=== PATIENT | male | born 1975 | race Caucasian/White ===

== ENCOUNTER 2016-10-09 15:21 | Inpatient (IN) | payer OTHER ==
[2016-10-09 18:05] VITALS: BMI 20.5
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
[2016-10-09] MEDS ORDERED: MAGNESIUM HYDROX 2400MG/30ML ORAL SUSPENSION 30 ML CUP PO PRN (20:10)
[2016-10-09] MEDS ORDERED: MAG HYDROX/AL HYDROX/SIMETH 30 ML UNIT-DOSE CUP PO PRN (20:10)
[2016-10-09] MEDS ORDERED: guaiFENesin/D-METHORPHAN HB 10 ML UNIT-DOSE CUPS PO PRN (20:10)
[2016-10-09] MEDS ORDERED: ACETAMINOPHEN 325 MG TABLET (FP) PO PRN (20:10)
[2016-10-09] MEDS ORDERED: P-EPHED 60MG/TRIPROLIDI 2.5MG TABLET PO PRN (20:10)
[2016-10-09] MEDS ORDERED: NICOTINE POLACRILEX 4 MG GUM BC PRN (20:10)
[2016-10-09] MEDS ORDERED: MENTHOL/PHENOL 1 EACH UD MM PRN (20:10)
[2016-10-09] MEDS ORDERED: LOPERAMIDE HCL 2 MG CAPSULE PO PRN (20:10)
[2016-10-09] MEDS ORDERED: MAGNESIUM CITRATE 300 ML BOTTLE PO PRN (20:10)
[2016-10-09] MEDS ORDERED: chlordiazePOXIDE HCL 25 MG CAPSULE PO ONE (20:10)
[2016-10-09] MEDS: THIAMINE HCL 100 MG TABLET (FP) PO SCH (22:15)
[2016-10-09] MEDS: RANITIDINE HCL 150 MG TABLET (FP) PO SCH (22:15)
[2016-10-09] MEDS: chlordiazePOXIDE HCL 25 MG CAPSULE PO SCH (22:15)
[2016-10-09 23:17] LABS: URINE APPEARANCE CLEAR; URINE BILIRUBIN NEGATIVE (NEGATIVE); URINE BLOOD NEGATIVE (NEGATIVE); URINE COLOR YELLOW; URINE GLUCOSE (UA) NEGATIVE (NEGATIVE); URINE KETONE NEGATIVE (NEGATIVE); URINE LEUK ESTERASE NEGATIVE (NEGATIVE); URINE NITRITE NEGATIVE (NEGATIVE); URINE PROTEIN NEGATIVE (NEGATIVE); URINE UROBILINOGEN NEGATIVE E.U./dl (0.2-1.0)
[2016-10-10] MEDS: chlordiazePOXIDE HCL 25 MG CAPSULE PO SCH ×4 (05:22→22:36)
--- NOTE | 2016-10-10 08:44 | CONSULT ---
[facility] Psychiatric Consult - Data Date of interview: 10/10/16 Admission source: [facility] Identifying data: This is 41 years old male with hiostory of Bipolar disorder, PTSD, ADHD, history of psychiatric hospitalizations, intoxicated with: Alcohol , Heroin, Opioids, Cocaine, Nicotine Substance Abuse History: - Smoking Cessation. Smoking history: Current every day smoker. Have you smoked in the past 12 months: Yes. Aproximately how many cigarettes per day: 20. Cigars Per Day: 0. Hx Chewing Tobacco Use: No. Initiated information on smoking cessation: Yes. 'Breaking Loose' booklet given : 10/09/16. - Substance & Tx. History. Hx Alcohol Use: Yes. Substance Use Type: None, Alcohol, Opiates. Hx Substance Use Treatment: Yes. - Substances Abused. Alcohol. Route: Oral. Frequency: Daily. Amount used: Vodka 3 pints. Age of first use: 17. Date of Last Use: 10/09/16. Heroin. Route: Injection. Frequency: 3-6 times per week. Amount used: 2 bags. Age of first use: 23. Date of Last Use: Medical History: HTN, MMTP, Hep C+, Syncope history, Seizure history Psychiatric History: Patient reports to carry ADHD, PTSD, Bipolar Disorder with most recent psychiatric admission on 2014 at [facility], reports taking prior to admission no medications Physical/Sexual Abuse/Trauma History: Denies Additional Comment: Observation. Detox Unit Care Protocol Mental Status Exam - Mental Status Exam Alert and Oriented to: Person Cognitive Function: Fair Patient Appearance: Unkempt Patient Behavior: Sedated Speech Pattern: Delayed Voice Loudness: Mildly Soft/Quiet Thought Process: Circumstantial Thought Disorder: Being Controlled Hallucinations: Denies Suicidal Ideation: Denies Homicidal Ideation: Denies Insight/Judgement: Fair Sleep: Difficulty falling asleep Appetite: Fair Muscle strength/Tone: Mild Hypotonicity Gait/Station: Shuffling Additional Comments: Observation. Detox Unit Care Protocol Psychiatric Findings - Problem List ([place] 1, 2,3) (1) Alcohol dependence with uncomplicated withdrawal Current Visit: Yes Status: Acute (2) Methadone maintenance therapy patient Current Visit: Yes Status: Acute Comment: 80 mg verification pending (3) Nicotine dependence Current Visit: Yes Status: Acute Qualifiers: Nicotine product type: cigarettes Substance use status: in withdrawal Qualified Code(s): F17.213 - Nicotine dependence, cigarettes, with withdrawal (4) Bipolar II disorder Current Visit: Yes Status: Suspected (5) ADHD (attention deficit hyperactivity disorder) Current Visit: No Status: Acute (6) Cocaine dependence Current Visit: No Status: Acute (7) Opioid dependence Current Visit: No Status: Acute (8) Sedative/hypnotic withdrawal without complication Current Visit: No Status: Acute (9) Alcohol dependence Current Visit: No Status: Chronic (10) Anxiety disorder Current Visit: No Status: Chronic (11) Benzodiazepine dependence Current Visit: No Status: Chronic (12) Bipolar disorder Current Visit: No Status: Chronic (13) Cannabis dependence Current Visit: No Status: Chronic (14) Drug-induced mood disorder Current Visit: No Status: Chronic (15) Nicotine dependence, uncomplicated Current Visit: No Status: Chronic Qualifiers: Nicotine product type: cigarettes Qualified Code(s): F17.210 - Nicotine dependence, cigarettes, uncomplicated (16) Opioid dependence on agonist therapy Current Visit: No Status: Chronic (17) PTSD (post-traumatic stress disorder) Current Visit: No Status: Chronic (18) Panic disorder with agoraphobia Current Visit: No Status: Chronic (19) Sedative dependence Current Visit: No Status: Chronic - Initial Treatment Plan Initial Treatment Plan: Observation. Detox Unit Care Protocol
[2016-10-10] MEDS ORDERED: METHADONE HCL 40 MG DISPERSABLE TABLET PO ONE (08:49)
--- NOTE | 2016-10-10 09:35 | PN ---
S CIWA - CIWA Score Nausea/Vomitin Muscle Tremors: 3 Anxiety: 3 Agitation: 3 Paroxysmal Sweats: 3 Orientation: 0-Oriented Tacttile Disturbances: 1-Very Mild Itch/Numbness Auditory Disturbances: 0-None Visual Disturbances: 0-None Headache: 0-None Present CIWA-Ar Total Score: 16 BHS Progress Note (SOAP) Subjective: interrupted sleep, sweats, shakes,nausea, vomiting x1 Objective: 10/10/16 09:35 Vital Signs Temperature 98.1 F 10/10/16 07:00 Pulse Rate 66 10/10/16 07:00 Respiratory Rate 16 10/10/16 07:00 Blood Pressure 126/64 10/10/16 07:00 O2 Sat by Pulse Oximetry (%) Assessment: 10/10/16 09:35 withdrawal sx;s Plan: cont. detox increase fluids
[2016-10-10 10:02] LABS: MCH 29.2 pg (25.7-33.7); MCHC 32.9 g/dl (32.0-35.9); MEAN CELL VOLUME 88.8 fl (80-96); MEAN PLT VOLUME 9.8 fl (7.5-11.1); PLATELET COUNT 97 K/MM3 (134-434); RDW 14.5 % (11.9-15.9); WHITE BLOOD COUNT 3.1 K/mm3 (4.0-10.0)
[2016-10-10 10:16] LABS: ALBUMIN 3.2 g/dl (3.4-5.0); ANION GAP 8 (8-16); BILIRUBIN,TOTAL 0.4 mg/dL (0.2-1.0); CALCIUM 8.6 mg/dL (8.5-10.1); CO2 32 mmol/L (21-32); CREATININE 0.8 mg/dL (0.7-1.3); GLUCOSE,RANDOM 92 mg/dL (74-106); SGOT/AST 77 U/L (15-37); SGPT/ALT 75 U/L (12-78); TOT PROT 6.2 g/dl (6.4-8.2)
[2016-10-10 10:17] LABS: ALK PHOS 72 U/L (45-117)
[2016-10-10] MEDS: NICOTINE 21 MG/24 HOURS TOPICAL PATCH TD SCH (10:39)
[2016-10-10] MEDS: RANITIDINE HCL 150 MG TABLET (FP) PO SCH ×2 (10:40→22:36)
[2016-10-10] MEDS: PRENATAL VITAMINS W/ FOLIC ACID TABLET (FP) PO SCH (10:40)
[2016-10-10] MEDS ORDERED: ONDANSETRON *ODT* 4 MG TABLET SL PRN (11:20)
[2016-10-10] MEDS: chlordiazePOXIDE HCL 25 MG CAPSULE PO PRN (12:44)
[2016-10-10] MEDS: cloNIDine HCL 0.1 MG TABLET PO PRN ×2 (12:45→22:36)
[2016-10-10] MEDS: CYCLOBENZAPRINE HCL 10 MG TABLET (FP) PO PRN ×2 (12:45→22:36)
--- NOTE | 2016-10-10 15:06 | EKG ---
Test Reason : Blood Pressure : / mmHG Vent. Rate : 051 BPM Atrial Rate : 051 BPM P-R Int : 128 ms QRS Dur : 088 ms QT Int : 498 ms P-R-T Axes : 045 076 054 degrees QTc Int : 458 ms SINUS BRADYCARDIA VOLTAGE CRITERIA FOR LEFT VENTRICULAR HYPERTROPHY ABNORMAL ECG NO PREVIOUS ECGS AVAILABLE Confirmed by ASH VIDES MD ([id number]) on 10/10/2016 3:05:58 PM Referred By: Confirmed By:ASH VIDES MD
--- NOTE | 2016-10-10 17:43 | DS ---
[facility] Detox Discharge Summary Admission Date: 10/09/16 Discharge Date: 10/10/16 - History Present History: Alcohol Dependence, Sedative Dependence, MMTP - Physical Exam Results Vital Signs: Vital Signs Temperature 98.1 F 10/10/16 14:01 Pulse Rate 61 10/10/16 14:01 Respiratory Rate 18 10/10/16 14:01 Blood Pressure 135/84 10/10/16 14:01 O2 Sat by Pulse Oximetry (%) - Treatment Hospital Course: Detox Protocol Followed - Medication Discharge Medications: Ambulatory Orders NK [No Known Home Medication] 10/09/16 - Diagnosis (1) Alcohol dependence with uncomplicated withdrawal Current Visit: Yes Status: Chronic (2) Hypertension Current Visit: Yes Status: Chronic Qualifiers: Hypertension type: essential hypertension Qualified Code(s): I10 - Essential (primary) hypertension (3) Methadone maintenance therapy patient Current Visit: Yes Status: Chronic (4) Nicotine dependence Current Visit: Yes Status: Chronic Qualifiers: Nicotine product type: cigarettes Substance use status: in withdrawal Qualified Code(s): F17.213 - Nicotine dependence, cigarettes, with withdrawal (5) Hepatitis C carrier Current Visit: Yes Status: Chronic (6) Bipolar II disorder Current Visit: Yes Status: Suspected (7) Cocaine dependence Current Visit: Yes Status: Chronic Qualifiers: Substance use status: uncomplicated Qualified Code(s): F14.20 - Cocaine dependence, uncomplicated (8) Sedative/hypnotic withdrawal without complication Current Visit: Yes Status: Chronic - AMA Did Patient Leave Against Medical Advice: No (wants to leave now. )
[2016-10-10] MEDS: diphenhydrAMINE HCL 50 MG CAPSULE PO PRN (22:36)
[2016-10-10] MEDS: THIAMINE HCL 100 MG TABLET (FP) PO SCH (22:36)
[2016-10-11] MEDS: diphenhydrAMINE HCL 50 MG CAPSULE PO PRN ×2 (01:31→22:39)
[2016-10-11] MEDS: chlordiazePOXIDE HCL 25 MG CAPSULE PO SCH ×3 (05:12→17:29)
[2016-10-11] MEDS: METHADONE HCL 40 MG DISPERSABLE TABLET PO SCH (05:13)
[2016-10-11] MEDS: NICOTINE 21 MG/24 HOURS TOPICAL PATCH TD SCH (10:02)
[2016-10-11] MEDS: PRENATAL VITAMINS W/ FOLIC ACID TABLET (FP) PO SCH (10:03)
[2016-10-11] MEDS: cloNIDine HCL 0.1 MG TABLET PO PRN ×2 (10:03→22:39)
[2016-10-11] MEDS: RANITIDINE HCL 150 MG TABLET (FP) PO SCH ×2 (10:04→22:39)
--- NOTE | 2016-10-11 13:56 | PN ---
S CIWA - CIWA Score Nausea/Vomitin Muscle Tremors: 4-Moderate,w/Arms Extend Anxiety: 3 Agitation: 4-Moderately Restless Paroxysmal Sweats: 3 Orientation: 1-Uncertain about Date Tacttile Disturbances: 2-Mild Itch/Numbness/Burn Auditory Disturbances: 0-None Visual Disturbances: 0-None Headache: 0-None Present CIWA-Ar Total Score: 20 BHS Progress Note (SOAP) Subjective: Nausea, Sweating, Interrupted sleep, Tremors, Stomach Cramping, Anxious. Objective: PT. A & O X 2 (DISORIENTED ABOUT DAY / DATE). PT. OBSERVED AMBULATING ON UNIT. 10/11/16 13:53 Vital Signs Temperature 98.1 F 10/11/16 09:57 Pulse Rate 68 10/11/16 09:57 Respiratory Rate 18 10/11/16 09:57 Blood Pressure 114/72 10/11/16 09:57 O2 Sat by Pulse Oximetry (%) Laboratory Last Values WBC 3.1 K/mm3 (4.0-10.0) L D 10/10/16 07:20 RBC 4.68 M/mm3 (4.00-5.60) 10/10/16 07:20 Hgb 13.7 GM/dL (11.7-16.9) 10/10/16 07:20 Hct 41.6 % (35.4-49) 10/10/16 07:20 MCV 88.8 fl (80-96) 10/10/16 07:20 MCHC 32.9 g/dl (32.0-35.9) 10/10/16 07:20 RDW 14.5 % (11.9-15.9) 10/10/16 07:20 Plt Count 97 K/MM3 (134-434) L D 10/10/16 07:20 MPV 9.8 fl (7.5-11.1) 10/10/16 07:20 Sodium 142 mmol/L (136-145) 10/10/16 07:20 Potassium 3.7 mmol/L (3.5-5.1) 10/10/16 07:20 Chloride 102 mmol/L (98-107) 10/10/16 07:20 Carbon Dioxide 32 mmol/L (21-32) 10/10/16 07:20 Anion Gap 8 (8-16) 10/10/16 07:20 BUN 14 mg/dL (7-18) D 10/10/16 07:20 Creatinine 0.8 mg/dL (0.7-1.3) D 10/10/16 07:20 Creat Clearance w eGFR > 60 (>60) 10/10/16 07:20 Random Glucose 92 mg/dL (74-106) D 10/10/16 07:20 Calcium 8.6 mg/dL (8.5-10.1) 10/10/16 07:20 Total Bilirubin 0.4 mg/dL (0.2-1.0) 10/10/16 07:20 AST 77 U/L (15-37) H D 10/10/16 07:20 ALT 75 U/L (12-78) 10/10/16 07:20 Alkaline Phosphatase 72 U/L (45-117) 10/10/16 07:20 Total Protein 6.2 g/dl (6.4-8.2) L 10/10/16 07:20 Albumin 3.2 g/dl (3.4-5.0) L 10/10/16 07:20 Urine Color Yellow 10/09/16 20:44 Urine Appearance Clear 10/09/16 20:44 Urine pH 6.0 (5.0-8.0) 10/09/16 20:44 Ur Specific [place] 1.023 (1.001-1.035) 10/09/16 20:44 Urine Protein Negative (NEGATIVE) 10/09/16 20:44 Urine Glucose (UA) Negative (NEGATIVE) 10/09/16 20:44 Urine Ketones Negative (NEGATIVE) 10/09/16 20:44 Urine Blood Negative (NEGATIVE) 10/09/16 20:44 Urine Nitrite Negative (NEGATIVE) 10/09/16 20:44 Urine Bilirubin Negative (NEGATIVE) 10/09/16 20:44 Urine Urobilinogen Negative E.U./dl (0.2-1.0) 10/09/16 20:44 Ur Leukocyte Esterase Negative (NEGATIVE) 10/09/16 20:44 RPR Titer Nonreactive (NONREACTIVE) 10/10/16 07:20 LABS NOTED. Assessment: 10/11/16 13:55 WITHDRAWAL SYMPTOMS. Plan: CONTINUE DETOX. ADVISED PATIENT TO FOLLOWUP WITH [facility] / REHAB MEDICAL PROVIDER AFTER DISCHARGE FROM DETOX FOR GENERAL MEDICAL ASSESSMENT AND FOR ABNORMAL LAB VALUES.
[2016-10-11] MEDS: chlordiazePOXIDE HCL 25 MG CAPSULE PO PRN (19:38)
[2016-10-11] MEDS: chlordiazePOXIDE 5 MG CAPSULE PO SCH (22:39)
[2016-10-11] MEDS: CYCLOBENZAPRINE HCL 10 MG TABLET (FP) PO PRN (22:39)
[2016-10-11] MEDS: THIAMINE HCL 100 MG TABLET (FP) PO SCH (22:39)
[2016-10-12] MEDS: METHADONE HCL 40 MG DISPERSABLE TABLET PO SCH (05:31)
[2016-10-12] MEDS: chlordiazePOXIDE 5 MG CAPSULE PO SCH ×3 (05:32→17:18)
[2016-10-12] MEDS: RANITIDINE HCL 150 MG TABLET (FP) PO SCH ×2 (10:19→22:06)
[2016-10-12] MEDS: PRENATAL VITAMINS W/ FOLIC ACID TABLET (FP) PO SCH (10:19)
[2016-10-12] MEDS: NICOTINE 21 MG/24 HOURS TOPICAL PATCH TD SCH (10:19)
--- NOTE | 2016-10-12 12:28 | PN ---
BHS Progress Note (SOAP) Subjective: Restlessness, anxiety Objective: 10/12/16 12:27 Vital Signs - 8 hr 10/12/16 10/12/16 06:00 10:00 Temperature 98.1 F 97.7 F Pulse Rate 68 75 Respiratory 18 18 Rate Blood Pressure 105/67 112/70 Laboratory Last Values WBC 3.1 K/mm3 (4.0-10.0) L D 10/10/16 07:20 RBC 4.68 M/mm3 (4.00-5.60) 10/10/16 07:20 Hgb 13.7 GM/dL (11.7-16.9) 10/10/16 07:20 Hct 41.6 % (35.4-49) 10/10/16 07:20 MCV 88.8 fl (80-96) 10/10/16 07:20 MCHC 32.9 g/dl (32.0-35.9) 10/10/16 07:20 RDW 14.5 % (11.9-15.9) 10/10/16 07:20 Plt Count 97 K/MM3 (134-434) L D 10/10/16 07:20 MPV 9.8 fl (7.5-11.1) 10/10/16 07:20 Sodium 142 mmol/L (136-145) 10/10/16 07:20 Potassium 3.7 mmol/L (3.5-5.1) 10/10/16 07:20 Chloride 102 mmol/L (98-107) 10/10/16 07:20 Carbon Dioxide 32 mmol/L (21-32) 10/10/16 07:20 Anion Gap 8 (8-16) 10/10/16 07:20 BUN 14 mg/dL (7-18) D 10/10/16 07:20 Creatinine 0.8 mg/dL (0.7-1.3) D 10/10/16 07:20 Creat Clearance w eGFR > 60 (>60) 10/10/16 07:20 Random Glucose 92 mg/dL (74-106) D 10/10/16 07:20 Calcium 8.6 mg/dL (8.5-10.1) 10/10/16 07:20 Total Bilirubin 0.4 mg/dL (0.2-1.0) 10/10/16 07:20 AST 77 U/L (15-37) H D 10/10/16 07:20 ALT 75 U/L (12-78) 10/10/16 07:20 Alkaline Phosphatase 72 U/L (45-117) 10/10/16 07:20 Total Protein 6.2 g/dl (6.4-8.2) L 10/10/16 07:20 Albumin 3.2 g/dl (3.4-5.0) L 10/10/16 07:20 Urine Color Yellow 10/09/16 20:44 Urine Appearance Clear 10/09/16 20:44 Urine pH 6.0 (5.0-8.0) 10/09/16 20:44 Ur Specific [place] 1.023 (1.001-1.035) 10/09/16 20:44 Urine Protein Negative (NEGATIVE) 10/09/16 20:44 Urine Glucose (UA) Negative (NEGATIVE) 10/09/16 20:44 Urine Ketones Negative (NEGATIVE) 10/09/16 20:44 Urine Blood Negative (NEGATIVE) 10/09/16 20:44 Urine Nitrite Negative (NEGATIVE) 10/09/16 20:44 Urine Bilirubin Negative (NEGATIVE) 10/09/16 20:44 Urine Urobilinogen Negative E.U./dl (0.2-1.0) 10/09/16 20:44 Ur Leukocyte Esterase Negative (NEGATIVE) 10/09/16 20:44 RPR Titer Nonreactive (NONREACTIVE) 10/10/16 07:20 Labs noted Assessment: 10/12/16 12:27 withdrawal sx Plan: continue detox
[2016-10-12] MEDS: chlordiazePOXIDE HCL 25 MG CAPSULE PO PRN (15:30)
[2016-10-12] MEDS: chlordiazePOXIDE HCL 10 MG CAPSULE PO SCH (22:05)
[2016-10-12] MEDS: CYCLOBENZAPRINE HCL 10 MG TABLET (FP) PO PRN (22:05)
[2016-10-12] MEDS: THIAMINE HCL 100 MG TABLET (FP) PO SCH (22:05)
[2016-10-12] MEDS: cloNIDine HCL 0.1 MG TABLET PO PRN (22:06)
[2016-10-12] MEDS: diphenhydrAMINE HCL 50 MG CAPSULE PO PRN (22:07)
[2016-10-13] MEDS: chlordiazePOXIDE HCL 10 MG CAPSULE PO SCH ×2 (05:13→10:41)
[2016-10-13] MEDS: METHADONE HCL 40 MG DISPERSABLE TABLET PO SCH (05:14)
[2016-10-13 06:38] VITALS: TEMP 97.9
--- NOTE | 2016-10-13 10:09 | DS ---
[facility] Detox Discharge Summary Admission Date: 10/09/16 Discharge Date: 10/13/16 - History Present History: Alcohol Dependence, Cocaine Dependence, Opioid Dependence, Sedative Dependence, MMTP Pertinent Past History: Smoker Hypertension ETOH related Seizures - Physical Exam Results Vital Signs: Vital Signs Temperature 97.9 F 10/13/16 06:00 Pulse Rate 61 10/13/16 06:00 Respiratory Rate 16 10/13/16 06:00 Blood Pressure 101/58 10/13/16 06:00 O2 Sat by Pulse Oximetry (%) Laboratory Last Values WBC 3.1 K/mm3 (4.0-10.0) L D 10/10/16 07:20 RBC 4.68 M/mm3 (4.00-5.60) 10/10/16 07:20 Hgb 13.7 GM/dL (11.7-16.9) 10/10/16 07:20 Hct 41.6 % (35.4-49) 10/10/16 07:20 MCV 88.8 fl (80-96) 10/10/16 07:20 MCHC 32.9 g/dl (32.0-35.9) 10/10/16 07:20 RDW 14.5 % (11.9-15.9) 10/10/16 07:20 Plt Count 97 K/MM3 (134-434) L D 10/10/16 07:20 MPV 9.8 fl (7.5-11.1) 10/10/16 07:20 Sodium 142 mmol/L (136-145) 10/10/16 07:20 Potassium 3.7 mmol/L (3.5-5.1) 10/10/16 07:20 Chloride 102 mmol/L (98-107) 10/10/16 07:20 Carbon Dioxide 32 mmol/L (21-32) 10/10/16 07:20 Anion Gap 8 (8-16) 10/10/16 07:20 BUN 14 mg/dL (7-18) D 10/10/16 07:20 Creatinine 0.8 mg/dL (0.7-1.3) D 10/10/16 07:20 Creat Clearance w eGFR > 60 (>60) 10/10/16 07:20 Random Glucose 92 mg/dL (74-106) D 10/10/16 07:20 Calcium 8.6 mg/dL (8.5-10.1) 10/10/16 07:20 Total Bilirubin 0.4 mg/dL (0.2-1.0) 10/10/16 07:20 AST 77 U/L (15-37) H D 10/10/16 07:20 ALT 75 U/L (12-78) 10/10/16 07:20 Alkaline Phosphatase 72 U/L (45-117) 10/10/16 07:20 Total Protein 6.2 g/dl (6.4-8.2) L 10/10/16 07:20 Albumin 3.2 g/dl (3.4-5.0) L 10/10/16 07:20 Urine Color Yellow 10/09/16 20:44 Urine Appearance Clear 10/09/16 20:44 Urine pH 6.0 (5.0-8.0) 10/09/16 20:44 Ur Specific [place] 1.023 (1.001-1.035) 10/09/16 20:44 Urine Protein Negative (NEGATIVE) 10/09/16 20:44 Urine Glucose (UA) Negative (NEGATIVE) 10/09/16 20:44 Urine Ketones Negative (NEGATIVE) 10/09/16 20:44 Urine Blood Negative (NEGATIVE) 10/09/16 20:44 Urine Nitrite Negative (NEGATIVE) 10/09/16 20:44 Urine Bilirubin Negative (NEGATIVE) 10/09/16 20:44 Urine Urobilinogen Negative E.U./dl (0.2-1.0) 10/09/16 20:44 Ur Leukocyte Esterase Negative (NEGATIVE) 10/09/16 20:44 RPR Titer Nonreactive (NONREACTIVE) 10/10/16 07:20 Labs noted Pertinent Admission Physical Exam Findings: Withdrawal Symptoms - Treatment Hospital Course: Detox Protocol Followed, Detoxed Safely, Responded well, Discharged Condition Good - Medication Discharge Medications: Ambulatory Orders NK [No Known Home Medication] 10/09/16 - Diagnosis (1) Alcohol dependence with uncomplicated withdrawal Current Visit: Yes Status: Chronic (2) Cocaine dependence Current Visit: Yes Status: Chronic Qualifiers: Substance use status: uncomplicated Qualified Code(s): F14.20 - Cocaine dependence, uncomplicated (3) Hepatitis C carrier Current Visit: Yes Status: Chronic (4) Hypertension Current Visit: Yes Status: Chronic Qualifiers: Hypertension type: essential hypertension Qualified Code(s): I10 - Essential (primary) hypertension (5) Methadone maintenance therapy patient Current Visit: Yes Status: Chronic (6) Nicotine dependence Current Visit: Yes Status: Chronic Qualifiers: Nicotine product type: cigarettes Substance use status: in withdrawal Qualified Code(s): F17.213 - Nicotine dependence, cigarettes, with withdrawal (7) Sedative/hypnotic withdrawal without complication Current Visit: Yes Status: Chronic (8) Bipolar II disorder Current Visit: Yes Status: Suspected (9) ADHD (attention deficit hyperactivity disorder) Current Visit: No Status: Acute (10) Opioid dependence Current Visit: No Status: Acute (11) Anxiety disorder Current Visit: No Status: Chronic (12) Benzodiazepine dependence Current Visit: No Status: Chronic (13) Bipolar disorder Current Visit: No Status: Chronic (14) Cannabis dependence Current Visit: No Status: Chronic (15) Drug-induced mood disorder Current Visit: No Status: Chronic (16) Nicotine dependence, uncomplicated Current Visit: No Status: Chronic Qualifiers: Nicotine product type: cigarettes Qualified Code(s): F17.210 - Nicotine dependence, cigarettes, uncomplicated (17) Opioid dependence on agonist therapy Current Visit: No Status: Chronic (18) PTSD (post-traumatic stress disorder) Current Visit: No Status: Chronic (19) Panic disorder with agoraphobia Current Visit: No Status: Chronic (20) Sedative dependence Current Visit: No Status: Chronic (21) Seizure Current Visit: No Status: Chronic
[2016-10-13] MEDS: RANITIDINE HCL 150 MG TABLET (FP) PO SCH (10:10)
[2016-10-13] MEDS: cloNIDine HCL 0.1 MG TABLET PO PRN (10:10)
[2016-10-13] MEDS: PRENATAL VITAMINS W/ FOLIC ACID TABLET (FP) PO SCH (10:10)
[2016-10-13] MEDS: CYCLOBENZAPRINE HCL 10 MG TABLET (FP) PO PRN (10:10)
[2016-10-13] MEDS: NICOTINE 21 MG/24 HOURS TOPICAL PATCH TD SCH (10:10)
[2016-10-13 10:28] VITALS: BP 128/79; PULSE 88
== END 2016-10-13 10:48 | disposition other institution (70) | DRG 773 ==
LOC: YASAS 15:21 → Y6N 19:25
PROVIDERS: ADMIT Internal Medicine Addiction Medicine; ATTEND Internal Medicine Addiction Medicine
PROC: HZ2ZZZZ Detoxification Services for Substance Abuse Treatment (ICD-10-PCS; principal; 2016-10-13)
DX: F11.20 Opioid dependence, uncomplicated (principal); F13.230 Sedative, hypnotic or anxiolytic dependence with withdrawal, uncomplicated; F10.230 Alcohol dependence with withdrawal, uncomplicated; F14.20 Cocaine dependence, uncomplicated; F12.20 Cannabis dependence, uncomplicated; F17.213 Nicotine dependence, cigarettes, with withdrawal; F32.9 Major depressive disorder, single episode, unspecified; F41.0 Panic disorder [episodic paroxysmal anxiety]; F41.9 Anxiety disorder, unspecified; F43.10 Post-traumatic stress disorder, unspecified; F90.9 Attention-deficit hyperactivity disorder, unspecified type; G40.909 Epilepsy, unspecified, not intractable, without status epilepticus
CPT/HCPCS: 36415; 71020-TC; 80053; 81003; 85027; 86593; 93005; 93010

== ENCOUNTER 2016-10-13 10:40 | Inpatient (IN) | payer OTHER ==
[2016-10-13 11:05] VITALS: BMI 22.3
[2016-10-13] MEDS ORDERED: MAGNESIUM HYDROX 2400MG/30ML ORAL SUSPENSION 30 ML CUP PO PRN (12:44)
[2016-10-13] MEDS ORDERED: IBUPROFEN 400 MG TABLET (FP) PO PRN (12:44)
[2016-10-13] MEDS ORDERED: MAG HYDROX/AL HYDROX/SIMETH 30 ML UNIT-DOSE CUP PO PRN (12:44)
[2016-10-13] MEDS ORDERED: LOPERAMIDE HCL 2 MG CAPSULE PO PRN (12:44)
[2016-10-13] MEDS ORDERED: NICOTINE POLACRILEX 4 MG GUM BUC PRN (12:44)
[2016-10-13] MEDS ORDERED: ACETAMINOPHEN 325 MG TABLET (FP) PO PRN (12:44)
[2016-10-13] MEDS ORDERED: P-EPHED 60MG/TRIPROLIDI 2.5MG TABLET PO PRN (12:44)
[2016-10-13] MEDS ORDERED: guaiFENesin/D-METHORPHAN HB 10 ML UNIT-DOSE CUPS PO PRN (12:44)
[2016-10-13] MEDS ORDERED: MENTHOL/PHENOL 1 EACH UD MM PRN (12:44)
[2016-10-13] MEDS ORDERED: MAGNESIUM CITRATE 300 ML BOTTLE PO PRN (12:44)
--- NOTE | 2016-10-13 12:49 | HP ---
[facility] Re[facility] Assess/Revision - Admission History Admitted to Rehab from: [facility] [address] [place] Date of Admission to Rehab: 10/13/16 - Vital signs Vital Signs: Vital Signs Period Temp Pulse Resp BP Sys/Moore Pulse Ox Last 24 Hr 97.7 F 81 18 118/72 - Findings Detox History & Physical reviewed: Yes Concur with findings: Yes
[2016-10-13] MEDS: THIAMINE HCL 100 MG TABLET (FP) PO SCH (21:11)
[2016-10-13] MEDS: diphenhydrAMINE HCL 50 MG CAPSULE PO PRN (21:11)
[2016-10-14] MEDS: diphenhydrAMINE HCL 50 MG CAPSULE PO PRN ×2 (00:30→21:40)
[2016-10-14] MEDS: METHADONE HCL 40 MG DISPERSABLE TABLET PO SCH (06:28)
[2016-10-14] MEDS: NICOTINE 21 MG/24 HOURS TOPICAL PATCH TD SCH (10:16)
[2016-10-14] MEDS: PRENATAL VITAMINS W/ FOLIC ACID TABLET (FP) PO SCH (10:16)
[2016-10-14] MEDS: THIAMINE HCL 100 MG TABLET (FP) PO SCH (21:40)
[2016-10-15] MEDS: METHADONE HCL 40 MG DISPERSABLE TABLET PO SCH (06:05)
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
[2016-10-15] MEDS: PRENATAL VITAMINS W/ FOLIC ACID TABLET (FP) PO SCH (10:09)
[2016-10-15] MEDS: NICOTINE 21 MG/24 HOURS TOPICAL PATCH TD SCH (10:09)
[2016-10-15] MEDS: PARoxetine HCL 20 MG TABLET (FP) PO SCH (12:19)
[2016-10-15] MEDS: QUEtiapine FUMARATE 100 MG TABLET (FP) PO SCH (21:41)
[2016-10-15] MEDS: THIAMINE HCL 100 MG TABLET (FP) PO SCH (21:41)
[2016-10-16] MEDS: METHADONE HCL 40 MG DISPERSABLE TABLET PO SCH (06:04)
[2016-10-16] MEDS: PARoxetine HCL 20 MG TABLET (FP) PO SCH (10:03)
[2016-10-16] MEDS: NICOTINE 21 MG/24 HOURS TOPICAL PATCH TD SCH (10:03)
[2016-10-16] MEDS: PRENATAL VITAMINS W/ FOLIC ACID TABLET (FP) PO SCH (10:03)
[2016-10-16] MEDS: THIAMINE HCL 100 MG TABLET (FP) PO SCH (21:59)
[2016-10-16] MEDS: QUEtiapine FUMARATE 100 MG TABLET (FP) PO SCH (21:59)
[2016-10-16] MEDS: diphenhydrAMINE HCL 50 MG CAPSULE PO PRN (22:00)
[2016-10-17] MEDS: METHADONE HCL 40 MG DISPERSABLE TABLET PO SCH (06:26)
[2016-10-17] MEDS: NICOTINE 21 MG/24 HOURS TOPICAL PATCH TD SCH (10:02)
[2016-10-17] MEDS: PARoxetine HCL 20 MG TABLET (FP) PO SCH (10:02)
[2016-10-17] MEDS: PRENATAL VITAMINS W/ FOLIC ACID TABLET (FP) PO SCH (10:02)
[2016-10-17] MEDS: SIMETHICONE 80 MG TAB.CHEW (FP) PO PRN (15:05)
[2016-10-17] MEDS: THIAMINE HCL 100 MG TABLET (FP) PO SCH (21:24)
[2016-10-17] MEDS: QUEtiapine FUMARATE 100 MG TABLET (FP) PO SCH (21:25)
[2016-10-18] MEDS: METHADONE HCL 40 MG DISPERSABLE TABLET PO SCH (05:55)
[2016-10-18] MEDS: NICOTINE 21 MG/24 HOURS TOPICAL PATCH TD SCH (09:45)
[2016-10-18] MEDS: PRENATAL VITAMINS W/ FOLIC ACID TABLET (FP) PO SCH (09:45)
[2016-10-18] MEDS: PARoxetine HCL 20 MG TABLET (FP) PO SCH (09:46)
[2016-10-18] MEDS: THIAMINE HCL 100 MG TABLET (FP) PO SCH (21:48)
[2016-10-18] MEDS: QUEtiapine FUMARATE 100 MG TABLET (FP) PO SCH (21:48)
[2016-10-18] MEDS: diphenhydrAMINE HCL 50 MG CAPSULE PO PRN (21:48)
[2016-10-19] MEDS: METHADONE HCL 40 MG DISPERSABLE TABLET PO SCH (05:53)
[2016-10-19] MEDS: NICOTINE 21 MG/24 HOURS TOPICAL PATCH TD SCH (10:18)
[2016-10-19] MEDS: PARoxetine HCL 20 MG TABLET (FP) PO SCH (10:18)
[2016-10-19] MEDS: PRENATAL VITAMINS W/ FOLIC ACID TABLET (FP) PO SCH (10:18)
[2016-10-19] MEDS: SIMETHICONE 80 MG TAB.CHEW (FP) PO PRN (12:16)
[2016-10-19] MEDS: QUEtiapine FUMARATE 100 MG TABLET (FP) PO SCH (22:13)
[2016-10-19] MEDS: diphenhydrAMINE HCL 50 MG CAPSULE PO PRN (22:13)
[2016-10-19] MEDS: THIAMINE HCL 100 MG TABLET (FP) PO SCH (22:13)
[2016-10-20] MEDS: METHADONE HCL 40 MG DISPERSABLE TABLET PO SCH (06:07)
[2016-10-20] MEDS: PRENATAL VITAMINS W/ FOLIC ACID TABLET (FP) PO SCH (09:55)
[2016-10-20] MEDS: NICOTINE 21 MG/24 HOURS TOPICAL PATCH TD SCH (09:56)
[2016-10-20] MEDS: PARoxetine HCL 20 MG TABLET (FP) PO SCH (09:56)
[2016-10-20] MEDS: diphenhydrAMINE HCL 50 MG CAPSULE PO PRN (21:51)
[2016-10-20] MEDS: THIAMINE HCL 100 MG TABLET (FP) PO SCH (21:51)
[2016-10-20] MEDS: QUEtiapine FUMARATE 100 MG TABLET (FP) PO SCH (21:51)
[2016-10-21] MEDS: METHADONE HCL 40 MG DISPERSABLE TABLET PO SCH (06:11)
[2016-10-21] MEDS: PARoxetine HCL 20 MG TABLET (FP) PO SCH (10:15)
[2016-10-21] MEDS: PRENATAL VITAMINS W/ FOLIC ACID TABLET (FP) PO SCH (10:15)
[2016-10-21] MEDS: NICOTINE 21 MG/24 HOURS TOPICAL PATCH TD SCH (10:15)
[2016-10-21] MEDS: THIAMINE HCL 100 MG TABLET (FP) PO SCH (21:49)
[2016-10-21] MEDS: diphenhydrAMINE HCL 50 MG CAPSULE PO PRN (21:49)
[2016-10-21] MEDS: QUEtiapine FUMARATE 100 MG TABLET (FP) PO SCH (21:49)
[2016-10-22] MEDS: METHADONE HCL 40 MG DISPERSABLE TABLET PO SCH (06:17)
[2016-10-22] MEDS: NICOTINE 21 MG/24 HOURS TOPICAL PATCH TD SCH (09:32)
[2016-10-22] MEDS: PARoxetine HCL 20 MG TABLET (FP) PO SCH (09:32)
[2016-10-22] MEDS: PRENATAL VITAMINS W/ FOLIC ACID TABLET (FP) PO SCH (09:32)
[2016-10-22] MEDS: QUEtiapine FUMARATE 100 MG TABLET (FP) PO SCH (21:15)
[2016-10-22] MEDS ORDERED: QUEtiapine FUMARATE 50 MG TABLET ONE (21:15)
[2016-10-22] MEDS: THIAMINE HCL 100 MG TABLET (FP) PO SCH (21:15)
[2016-10-22] MEDS: diphenhydrAMINE HCL 50 MG CAPSULE PO PRN (21:15)
[2016-10-23] MEDS: METHADONE HCL 40 MG DISPERSABLE TABLET PO SCH (06:30)
[2016-10-23] MEDS: NICOTINE 21 MG/24 HOURS TOPICAL PATCH TD SCH (09:42)
[2016-10-23] MEDS: PARoxetine HCL 20 MG TABLET (FP) PO SCH (09:42)
[2016-10-23] MEDS: PRENATAL VITAMINS W/ FOLIC ACID TABLET (FP) PO SCH (09:42)
[2016-10-23] MEDS: diphenhydrAMINE HCL 50 MG CAPSULE PO PRN (21:40)
[2016-10-23] MEDS: THIAMINE HCL 100 MG TABLET (FP) PO SCH (21:40)
[2016-10-23] MEDS: QUEtiapine FUMARATE 100 MG TABLET (FP) PO SCH (21:40)
[2016-10-24] MEDS: METHADONE HCL 40 MG DISPERSABLE TABLET PO SCH (05:59)
[2016-10-24] MEDS: PRENATAL VITAMINS W/ FOLIC ACID TABLET (FP) PO SCH (09:47)
[2016-10-24] MEDS: PARoxetine HCL 20 MG TABLET (FP) PO SCH (09:47)
[2016-10-24] MEDS: NICOTINE 21 MG/24 HOURS TOPICAL PATCH TD SCH (09:47)
[2016-10-24] MEDS: QUEtiapine FUMARATE 100 MG TABLET (FP) PO SCH (21:06)
[2016-10-24] MEDS: diphenhydrAMINE HCL 50 MG CAPSULE PO PRN (21:06)
[2016-10-24] MEDS: THIAMINE HCL 100 MG TABLET (FP) PO SCH (21:06)
[2016-10-25] MEDS: METHADONE HCL 40 MG DISPERSABLE TABLET PO SCH (06:13)
[2016-10-25] MEDS: NICOTINE 21 MG/24 HOURS TOPICAL PATCH TD SCH (09:22)
[2016-10-25] MEDS: PARoxetine HCL 20 MG TABLET (FP) PO SCH (09:22)
[2016-10-25] MEDS: PRENATAL VITAMINS W/ FOLIC ACID TABLET (FP) PO SCH (09:22)
[2016-10-25] MEDS: THIAMINE HCL 100 MG TABLET (FP) PO SCH (21:16)
[2016-10-25] MEDS: diphenhydrAMINE HCL 50 MG CAPSULE PO PRN (21:16)
[2016-10-25] MEDS: QUEtiapine FUMARATE 100 MG TABLET (FP) PO SCH (21:16)
[2016-10-26] MEDS: METHADONE HCL 40 MG DISPERSABLE TABLET PO SCH (06:18)
[2016-10-26] MEDS: NICOTINE 21 MG/24 HOURS TOPICAL PATCH TD SCH (09:28)
[2016-10-26] MEDS: PRENATAL VITAMINS W/ FOLIC ACID TABLET (FP) PO SCH (09:28)
[2016-10-26] MEDS: PARoxetine HCL 20 MG TABLET (FP) PO SCH (09:28)
[2016-10-26] MEDS: QUEtiapine FUMARATE 100 MG TABLET (FP) PO SCH (21:01)
[2016-10-26] MEDS: THIAMINE HCL 100 MG TABLET (FP) PO SCH (21:01)
[2016-10-26] MEDS: diphenhydrAMINE HCL 50 MG CAPSULE PO PRN (21:01)
[2016-10-27] MEDS: METHADONE HCL 40 MG DISPERSABLE TABLET PO SCH (06:58)
[2016-10-27] MEDS: PARoxetine HCL 20 MG TABLET (FP) PO SCH (09:27)
[2016-10-27] MEDS: NICOTINE 21 MG/24 HOURS TOPICAL PATCH TD SCH (09:27)
[2016-10-27] MEDS: PRENATAL VITAMINS W/ FOLIC ACID TABLET (FP) PO SCH (09:27)
[2016-10-27] MEDS: QUEtiapine FUMARATE 100 MG TABLET (FP) PO SCH (22:07)
[2016-10-27] MEDS: diphenhydrAMINE HCL 50 MG CAPSULE PO PRN (22:07)
[2016-10-27] MEDS: THIAMINE HCL 100 MG TABLET (FP) PO SCH (22:07)
[2016-10-28] MEDS: METHADONE HCL 40 MG DISPERSABLE TABLET PO SCH (06:10)
[2016-10-28] MEDS: PRENATAL VITAMINS W/ FOLIC ACID TABLET (FP) PO SCH (09:36)
[2016-10-28] MEDS: NICOTINE 21 MG/24 HOURS TOPICAL PATCH TD SCH (09:36)
[2016-10-28] MEDS: PARoxetine HCL 20 MG TABLET (FP) PO SCH (09:36)
[2016-10-28] MEDS: diphenhydrAMINE HCL 50 MG CAPSULE PO PRN (21:43)
[2016-10-28] MEDS: THIAMINE HCL 100 MG TABLET (FP) PO SCH (21:43)
[2016-10-28] MEDS: QUEtiapine FUMARATE 100 MG TABLET (FP) PO SCH (21:43)
[2016-10-29] MEDS: METHADONE HCL 40 MG DISPERSABLE TABLET PO SCH (06:01)
[2016-10-29] MEDS: NICOTINE 21 MG/24 HOURS TOPICAL PATCH TD SCH (09:32)
[2016-10-29] MEDS: PARoxetine HCL 20 MG TABLET (FP) PO SCH (09:32)
[2016-10-29] MEDS: PRENATAL VITAMINS W/ FOLIC ACID TABLET (FP) PO SCH (09:32)
[2016-10-29] MEDS: QUEtiapine FUMARATE 100 MG TABLET (FP) PO SCH (21:40)
[2016-10-29] MEDS: THIAMINE HCL 100 MG TABLET (FP) PO SCH (21:40)
[2016-10-29] MEDS: diphenhydrAMINE HCL 50 MG CAPSULE PO PRN (21:40)
[2016-10-30] MEDS: METHADONE HCL 40 MG DISPERSABLE TABLET PO SCH (06:06)
[2016-10-30] MEDS: PRENATAL VITAMINS W/ FOLIC ACID TABLET (FP) PO SCH (09:34)
[2016-10-30] MEDS: PARoxetine HCL 20 MG TABLET (FP) PO SCH (09:34)
[2016-10-30] MEDS: NICOTINE 21 MG/24 HOURS TOPICAL PATCH TD SCH (09:34)
[2016-10-30] MEDS: THIAMINE HCL 100 MG TABLET (FP) PO SCH (21:45)
[2016-10-30] MEDS: diphenhydrAMINE HCL 50 MG CAPSULE PO PRN (21:45)
[2016-10-30] MEDS: QUEtiapine FUMARATE 100 MG TABLET (FP) PO SCH (21:45)
[2016-10-31] MEDS: METHADONE HCL 40 MG DISPERSABLE TABLET PO SCH (06:05)
[2016-10-31] MEDS: PRENATAL VITAMINS W/ FOLIC ACID TABLET (FP) PO SCH (09:31)
[2016-10-31] MEDS: PARoxetine HCL 20 MG TABLET (FP) PO SCH (09:31)
[2016-10-31] MEDS: NICOTINE 21 MG/24 HOURS TOPICAL PATCH TD SCH (09:31)
[2016-10-31] MEDS: QUEtiapine FUMARATE 100 MG TABLET (FP) PO SCH (21:18)
[2016-10-31] MEDS: diphenhydrAMINE HCL 50 MG CAPSULE PO PRN (21:18)
[2016-10-31] MEDS: THIAMINE HCL 100 MG TABLET (FP) PO SCH (21:18)
[2016-11-01] MEDS: METHADONE HCL 40 MG DISPERSABLE TABLET PO SCH (06:08)
[2016-11-01] MEDS: PRENATAL VITAMINS W/ FOLIC ACID TABLET (FP) PO SCH (09:47)
[2016-11-01] MEDS: PARoxetine HCL 20 MG TABLET (FP) PO SCH (09:47)
[2016-11-01] MEDS: NICOTINE 21 MG/24 HOURS TOPICAL PATCH TD SCH (09:47)
[2016-11-01] MEDS: QUEtiapine FUMARATE 100 MG TABLET (FP) PO SCH (21:13)
[2016-11-01] MEDS: THIAMINE HCL 100 MG TABLET (FP) PO SCH (21:13)
[2016-11-01] MEDS: diphenhydrAMINE HCL 50 MG CAPSULE PO PRN (21:14)
[2016-11-02] MEDS: METHADONE HCL 40 MG DISPERSABLE TABLET PO SCH (05:55)
[2016-11-02] MEDS: PRENATAL VITAMINS W/ FOLIC ACID TABLET (FP) PO SCH (09:28)
[2016-11-02] MEDS: PARoxetine HCL 20 MG TABLET (FP) PO SCH (09:29)
[2016-11-02] MEDS: NICOTINE 21 MG/24 HOURS TOPICAL PATCH TD SCH (09:29)
[2016-11-02] MEDS: diphenhydrAMINE HCL 50 MG CAPSULE PO PRN (21:43)
[2016-11-02] MEDS: THIAMINE HCL 100 MG TABLET (FP) PO SCH (21:43)
[2016-11-02] MEDS: QUEtiapine FUMARATE 100 MG TABLET (FP) PO SCH (21:43)
[2016-11-03] MEDS: METHADONE HCL 40 MG DISPERSABLE TABLET PO SCH (05:51)
[2016-11-03] MEDS: NICOTINE 21 MG/24 HOURS TOPICAL PATCH TD SCH (09:32)
[2016-11-03] MEDS: PARoxetine HCL 20 MG TABLET (FP) PO SCH (09:32)
[2016-11-03] MEDS: PRENATAL VITAMINS W/ FOLIC ACID TABLET (FP) PO SCH (09:34)
[2016-11-03] MEDS: QUEtiapine FUMARATE 100 MG TABLET (FP) PO SCH (21:48)
[2016-11-03] MEDS: diphenhydrAMINE HCL 50 MG CAPSULE PO PRN (21:48)
[2016-11-03] MEDS: THIAMINE HCL 100 MG TABLET (FP) PO SCH (21:48)
[2016-11-04] MEDS: METHADONE HCL 40 MG DISPERSABLE TABLET PO SCH (06:16)
[2016-11-04] MEDS: NICOTINE 21 MG/24 HOURS TOPICAL PATCH TD SCH (09:51)
[2016-11-04] MEDS: PRENATAL VITAMINS W/ FOLIC ACID TABLET (FP) PO SCH (09:51)
[2016-11-04] MEDS: PARoxetine HCL 20 MG TABLET (FP) PO SCH (09:51)
[2016-11-04] MEDS: diphenhydrAMINE HCL 50 MG CAPSULE PO PRN (21:56)
[2016-11-04] MEDS: THIAMINE HCL 100 MG TABLET (FP) PO SCH (21:56)
[2016-11-04] MEDS: QUEtiapine FUMARATE 100 MG TABLET (FP) PO SCH (21:56)
[2016-11-05] MEDS: METHADONE HCL 40 MG DISPERSABLE TABLET PO SCH (05:57)
[2016-11-05] MEDS: PARoxetine HCL 20 MG TABLET (FP) PO SCH (09:26)
[2016-11-05] MEDS: NICOTINE 21 MG/24 HOURS TOPICAL PATCH TD SCH (09:27)
[2016-11-05] MEDS: PRENATAL VITAMINS W/ FOLIC ACID TABLET (FP) PO SCH (09:27)
[2016-11-05] MEDS: THIAMINE HCL 100 MG TABLET (FP) PO SCH (21:46)
[2016-11-05] MEDS: QUEtiapine FUMARATE 100 MG TABLET (FP) PO SCH (21:46)
[2016-11-05] MEDS: diphenhydrAMINE HCL 50 MG CAPSULE PO PRN (21:46)
[2016-11-06] MEDS: METHADONE HCL 40 MG DISPERSABLE TABLET PO SCH (06:03)
[2016-11-06] MEDS: PARoxetine HCL 20 MG TABLET (FP) PO SCH (09:26)
[2016-11-06] MEDS: NICOTINE 21 MG/24 HOURS TOPICAL PATCH TD SCH (09:26)
[2016-11-06] MEDS: PRENATAL VITAMINS W/ FOLIC ACID TABLET (FP) PO SCH (09:26)
[2016-11-06] MEDS: QUEtiapine FUMARATE 100 MG TABLET (FP) PO SCH (21:32)
[2016-11-06] MEDS: diphenhydrAMINE HCL 50 MG CAPSULE PO PRN (21:32)
[2016-11-06] MEDS: THIAMINE HCL 100 MG TABLET (FP) PO SCH (21:32)
[2016-11-07] MEDS: METHADONE HCL 40 MG DISPERSABLE TABLET PO SCH (06:00)
[2016-11-07] MEDS: PARoxetine HCL 20 MG TABLET (FP) PO SCH (09:36)
[2016-11-07] MEDS: PRENATAL VITAMINS W/ FOLIC ACID TABLET (FP) PO SCH (09:36)
[2016-11-07] MEDS: NICOTINE 21 MG/24 HOURS TOPICAL PATCH TD SCH (09:36)
--- NOTE | 2016-11-07 10:35 | PN ---
Psychiatric Progress Note Vital Signs: Vital Signs Period Temp Pulse Resp BP Sys/Moore Pulse Ox Last 24 Hr 98.2 F 74 18-18 119/74 Date of Session: 11/07/16 Chief Complaint:: Psychiatrist Discharge Note HPI: Patient addressing Alcohol and Opoid Dependence comorbid with Opoid dependence on Agonist Therapy, Nicotine Dependence, ADHD, PTSD and Bipolar II Disorder ROS: Hepatitis C, +PPD were medically managed Current Medications: Active Medications Generic Name Dose Route Start Last Admin Trade Name Freq PRN Reason Stop Dose Admin Acetaminophen 650 mg 10/13/16 12:44 Tylenol - PO Q4H PRN FEVER OR PAIN Al Hydroxide/Mg Hydroxide 30 ml 10/13/16 12:44 10/16/16 07:37 Mylanta Oral Suspension - PO 30 ml Q6H PRN Administration DYSPEPSIA Diphenhydramine HCl 50 mg 10/13/16 12:44 11/06/16 21:32 Benadryl - PO 50 mg HSMR1 PRN Administration FOR ITCHING Eucalyptus/Menthol/Phenol/Sorbitol 1 each 10/13/16 12:44 Cepastat Lozenge - MM Q4H PRN SORE THROAT Guaifenesin 10 ml 10/13/16 12:44 Robitussin Dm - PO Q6H PRN COUGH Ibuprofen 400 mg 10/13/16 12:44 Motrin - PO Q6H PRN PAIN Loperamide HCl 4 mg 10/13/16 12:44 Imodium - PO Q6H PRN DIARRHEA Magnesium Hydroxide 30 ml 10/13/16 12:44 10/17/16 10:47 Milk Of Magnesia - PO 30 ml DAILY PRN Administration CONSTIPATION Methadone HCl 80 mg 11/07/16 06:00 11/07/16 06:00 Dolophine - PO 80 mg DAILY@0600 THEA Administration Nicotine 21 mg 10/14/16 10:00 11/07/16 09:36 Nicoderm Patch - TD 21 mg DAILY THEA Administration Nicotine Polacrilex 4 mg 10/13/16 12:44 Nicorette Gum - BUC Q2H PRN NICOTINE REPLACEMENT RX Paroxetine HCl 20 mg 10/15/16 11:15 11/07/16 09:36 Paxil - PO 20 mg DAILY THEA Administration Multivit/Folic Acid/Iron 1 tab 10/14/16 10:00 11/07/16 09:36 Vitamins (Sjr) - PO 1 tab DAILY THEA Administration Pseudoephedrine/Triprolidine 1 combo 10/13/16 12:44 Actifed - PO TID PRN NASAL CONGESTION Quetiapine Fumarate 100 mg 10/15/16 22:00 11/06/16 21:32 Seroquel - PO 100 mg HS THEA Administration Simethicone 80 mg 10/17/16 12:20 10/19/16 12:16 Mylicon - PO 80 mg QID PRN Administration GAS Thiamine HCl 100 mg 10/13/16 22:00 11/06/16 21:32 Vitamin B1 - PO 100 mg HS THEA Administration Current Side Effect: No Lab tests ordered: Yes Lab tests reviewed: Yes Provider note:: Patient will complete this program on 11/08/16. He has met his treatment goals and will continue to address his issues in residential inpatient treatment at [facility]. Told leader writer that from his participation in this program, he has learned the importane of atending AA/NA in order to maintain abstinence. He responded well to Paxil 20 mg po daily and Seroquel to 100 mg po HS. Scripts for 30 days supply of medications will be electronically transmitted to [facility] at [address] [place] [address]. He is stable for discharge on 11/08/16 Total face to face time:: 35 Mental Status Exam - Mental Status Exam Alert and Oriented to: Time, Place, Person Cognitive Function: Fair Patient Appearance: Well Groomed Mood: Hopeful, Euthymic Patient Behavior: Cooperative Speech Pattern: Clear Voice Loudness: Normal Thought Process: Intact Thought Disorder: Not Present Hallucinations: Denies Suicidal Ideation: Denies Homicidal Ideation: Denies Insight/Judgement: Fair Sleep: Fair Appetite: Good Muscle strength/Tone: Normal Gait/Station: Normal Psychiatric Treatment Plan - Problem List (1) Alcohol dependence Current Visit: No (2) Opioid dependence Current Visit: No (3) Opioid dependence on agonist therapy Current Visit: No (4) Nicotine dependence, uncomplicated Current Visit: No Qualifiers: Nicotine product type: cigarettes Qualified Code(s): F17.210 - Nicotine dependence, cigarettes, uncomplicated (5) ADHD (attention deficit hyperactivity disorder) Current Visit: No (6) PTSD (post-traumatic stress disorder) Current Visit: No (7) Bipolar II disorder Current Visit: No (8) Hepatitis C carrier Current Visit: No (9) PPD positive, treated Current Visit: Yes Initial treatment plan: Patient will be discharged tomorrow and referred to [facility] for residential inpatient treatment
[2016-11-07] MEDS: QUEtiapine FUMARATE 100 MG TABLET (FP) PO SCH (21:32)
[2016-11-07] MEDS: diphenhydrAMINE HCL 50 MG CAPSULE PO PRN (21:32)
[2016-11-07] MEDS: THIAMINE HCL 100 MG TABLET (FP) PO SCH (21:32)
[2016-11-08] MEDS: METHADONE HCL 40 MG DISPERSABLE TABLET PO SCH (06:09)
[2016-11-08 06:53] VITALS: BP 124/78; PULSE 80; TEMP 97.7
[2016-11-08] MEDS: PRENATAL VITAMINS W/ FOLIC ACID TABLET (FP) PO SCH (09:10)
[2016-11-08] MEDS: PARoxetine HCL 20 MG TABLET (FP) PO SCH (09:10)
[2016-11-08] MEDS: NICOTINE 21 MG/24 HOURS TOPICAL PATCH TD SCH (09:11)
== END 2016-11-08 10:20 | disposition home or self-care (01) | DRG 772 ==
LOC: YASAS 10:40 → Y3W 10:41
PROVIDERS: ADMIT Psychiatry & Neurology Psychiatry; ATTEND Psychiatry & Neurology Psychiatry
PROC: HZ42ZZZ Group Counseling for Substance Abuse Treatment, Cognitive-Behavioral (ICD-10-PCS; principal; 2016-11-08)
DX: F11.23 Opioid dependence with withdrawal (principal); F10.20 Alcohol dependence, uncomplicated; F17.210 Nicotine dependence, cigarettes, uncomplicated; F43.10 Post-traumatic stress disorder, unspecified; F90.9 Attention-deficit hyperactivity disorder, unspecified type; F31.9 Bipolar disorder, unspecified; B18.2 Chronic viral hepatitis C; R76.11 Nonspecific reaction to tuberculin skin test without active tuberculosis

== ENCOUNTER 2017-04-15 17:31 | Inpatient (IN) | payer OTHER ==
[2017-04-15 18:22] VITALS: BMI 19.9
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
[2017-04-15] MEDS ORDERED: MAG HYDROX/AL HYDROX/SIMETH 30 ML UNIT-DOSE CUP PO PRN (20:19)
[2017-04-15] MEDS ORDERED: ACETAMINOPHEN 325 MG TABLET (FP) PO PRN (20:19)
[2017-04-15] MEDS ORDERED: P-EPHED 60MG/TRIPROLIDI 2.5MG TABLET PO PRN (20:19)
[2017-04-15] MEDS ORDERED: IBUPROFEN 400 MG TABLET (FP) PO PRN (20:19)
[2017-04-15] MEDS ORDERED: MAGNESIUM HYDROX 2400MG/30ML ORAL SUSPENSION 30 ML CUP PO PRN (20:19)
[2017-04-15] MEDS ORDERED: METHADONE HCL 10 MG TABLET (FOR DETOX USE ONLY) PO ONE ×3 (20:19→23:00)
[2017-04-15] MEDS ORDERED: MAGNESIUM CITRATE 300 ML BOTTLE PO PRN (20:19)
[2017-04-15] MEDS ORDERED: NICOTINE POLACRILEX 2 MG GUM BC PRN (20:19)
[2017-04-15] MEDS ORDERED: LOPERAMIDE HCL 2 MG CAPSULE PO PRN (20:19)
[2017-04-15] MEDS ORDERED: MENTHOL/PHENOL 1 EACH UD MM PRN (20:19)
[2017-04-15] MEDS ORDERED: diphenhydrAMINE HCL 50 MG CAPSULE PO PRN (20:19)
[2017-04-15] MEDS ORDERED: guaiFENesin/D-METHORPHAN HB 10 ML UNIT-DOSE CUPS PO PRN (20:19)
[2017-04-15] MEDS ORDERED: chlordiazePOXIDE HCL 25 MG CAPSULE PO ONE (20:19)
[2017-04-15] MEDS: chlordiazePOXIDE HCL 25 MG CAPSULE PO SCH (22:39)
[2017-04-15] MEDS: THIAMINE HCL 100 MG TABLET (FP) PO SCH (22:39)
[2017-04-15 23:09] LABS: URINE APPEARANCE CLEAR; URINE BILIRUBIN NEGATIVE (NEGATIVE); URINE BLOOD NEGATIVE (NEGATIVE); URINE COLOR LTYELLOW; URINE GLUCOSE (UA) NEGATIVE (NEGATIVE); URINE KETONE 1+ (NEGATIVE); URINE LEUK ESTERASE NEGATIVE (NEGATIVE); URINE NITRITE NEGATIVE (NEGATIVE); URINE PROTEIN NEGATIVE (NEGATIVE); URINE UROBILINOGEN NEGATIVE mg/dL (0.2-1.0)
[2017-04-16] MEDS: chlordiazePOXIDE HCL 25 MG CAPSULE PO SCH ×4 (05:52→22:02)
[2017-04-16] MEDS ORDERED: METHADONE HCL 10 MG TABLET (FOR DETOX USE ONLY) PO SCH (10:00)
[2017-04-16] MEDS ORDERED: PARoxetine HCL 20 MG TABLET (FP) PO SCH (10:00)
[2017-04-16] MEDS: PRENATAL VITAMINS W/ FOLIC ACID TABLET (FP) PO SCH (10:03)
[2017-04-16] MEDS: NICOTINE 14 MG/24 HOURS TOPICAL PATCH TD SCH (10:03)
--- NOTE | 2017-04-16 10:06 | CONSULT ---
[facility] Psychiatric Consult - Data Date of interview: 04/16/17 Admission source: [facility] Identifying data: This is 42 years old male with history of psychiatric hospitalization, history of [place] rdisorder, intoxicated wioth: Alcohol, Opioids and Nicotine Substance Abuse History: - Smoking Cessation. Smoking history: Current every day smoker. Have you smoked in the past 12 months: Yes. Aproximately how many cigarettes per day: 10. Cigars Per Day: 0. Hx Chewing Tobacco Use: No. Initiated information on smoking cessation: Yes. 'Breaking Loose' booklet given : 04/15/17. - Substance & Tx. History. Hx Alcohol Use: Yes. Hx Substance Use : Yes. Substance Use Type: Alcohol, Heroin. Hx Substance Use Treatment: Yes ( DETOX AND REHAB: 10/2016). - Substances Abused. Alcohol. Route: Oral. Frequency: Daily. Amount used: 4 PINTS OF LIQUOR. Age of first use: 17. Date of Last Use: 04/15/17. Heroin. Route: Injection. Frequency: Daily. Amount used: 8 BAGS. Age of first use: 21. Date of Last Use: 04/15/17 Medical History: PPD+ hisotry, history of MMTP, Syncope history, HepC+, HTN, Psychiatric History: Patient reports history of PTSD, ADHD, Bipolar II Disorder , with most recent psychiatric admission ojn about more then 5 years ago, denies suicidal history, reports takinf prior to admission: Seroquel 100mg po qhs, history of takinf Paxil 20mg poqd Physical/Sexual Abuse/Trauma History: Denies Additional Comment: Seroquel 100mg po qhs Mental Status Exam - Mental Status Exam Alert and Oriented to: Person Cognitive Function: Fair Patient Appearance: Unkempt Mood: Sad Affect: Mood Congruent Patient Behavior: Cooperative Speech Pattern: Appropriate Voice Loudness: Mildly Soft/Quiet Thought Process: Circumstantial Thought Disorder: Being Controlled Hallucinations: Denies Suicidal Ideation: Denies Homicidal Ideation: Denies Insight/Judgement: Fair Sleep: Difficulty falling asleep Appetite: Fair Muscle strength/Tone: Mild Hypotonicity Gait/Station: Normal Additional Comments: Seroquel 100mg po qhs Psychiatric Findings - Problem List ([place] 1, 2,3) (1) Alcohol dependence with uncomplicated withdrawal Current Visit: Yes Status: Chronic (2) Nicotine dependence, uncomplicated Current Visit: Yes Status: Chronic Qualifiers: Nicotine product type: cigarettes Qualified Code(s): F17.210 - Nicotine dependence, cigarettes, uncomplicated (3) Opioid dependence with withdrawal Current Visit: Yes Status: Chronic (4) ADHD (attention deficit hyperactivity disorder) Current Visit: No Status: Acute (5) Alcohol dependence Current Visit: No Status: Chronic (6) Benzodiazepine dependence Current Visit: No Status: Chronic (7) Cannabis dependence Current Visit: No Status: Chronic (8) Cocaine dependence Current Visit: No Status: Chronic Qualifiers: Substance use status: uncomplicated Qualified Code(s): F14.20 - Cocaine dependence, uncomplicated (9) Drug-induced mood disorder Current Visit: No Status: Chronic (10) Methadone maintenance therapy patient Current Visit: No Status: Chronic Comment: 80 mg verification pending (11) Nicotine dependence Current Visit: No Status: Chronic Qualifiers: Nicotine product type: cigarettes Substance use status: in withdrawal Qualified Code(s): F17.213 - Nicotine dependence, cigarettes, with withdrawal (12) Opioid dependence on agonist therapy Current Visit: No Status: Chronic (13) PTSD (post-traumatic stress disorder) Current Visit: No Status: Chronic (14) Sedative/hypnotic withdrawal without complication Current Visit: No Status: Chronic (15) Bipolar II disorder Current Visit: No Status: Suspected - Initial Treatment Plan Initial Treatment Plan: Seroquel 100mg po qhs. Refusing to restart Paxil 20mg poqd
[2017-04-16 10:11] LABS: MEAN CELL VOLUME 90.9 fl (80-96); MEAN PLT VOLUME 10.6 fl (7.5-11.1); PLATELET COUNT 88 K/MM3 (134-434); RDW 14.3 % (11.9-15.9); WHITE BLOOD COUNT 2.4 K/mm3 (4.0-10.0)
[2017-04-16 10:34] LABS: ALBUMIN 3.1 g/dl (3.4-5.0); ANION GAP 8 (8-16); CALCIUM 8.6 mg/dL (8.5-10.1); CO2 33 mmol/L (21-32); GLUCOSE,RANDOM 100 mg/dL (74-106); SGOT/AST 124 U/L (15-37); SGPT/ALT 74 U/L (12-78)
[2017-04-16 10:35] LABS: ALK PHOS 107 U/L (45-117); BILIRUBIN,TOTAL 0.5 mg/dL (0.2-1.0); CREATININE 0.7 mg/dL (0.7-1.3)
--- NOTE | 2017-04-16 10:44 | PN ---
[facility] CIWA - CIWA Score Nausea/Vomitin-No Nausea/No Vomiting Muscle Tremors: 4-Moderate,w/Arms Extend Anxiety: 3 Agitation: 4-Moderately Restless Paroxysmal Sweats: 3 Orientation: 0-Oriented Tacttile Disturbances: 0-None Auditory Disturbances: 0-None Visual Disturbances: 0-None Headache: 0-None Present CIWA-Ar Total Score: 14 S COWS - Scale Resting Pulse: 0= [place] 80 or Below Sweatin=Flushed/Facial Moisture Restless Observation: 1= Difficult to Sit Still Pupil Size: 0= Normal to Room Light Bone or Joint Aches: 2= Severe Diffuse Aches Runny Nose/ Eye Tearin= Runny Nose/Eyes GI Upset > 30mins: 2= Nausea/Diarrhea Tremor Observation of Outstretched Hands: 2= Slight Tremor Visible Yawning Observation: 2= >3x During Session Anxiety or Irritability: 2=Irritable/Anxious Goose Flesh Skin: 3=Piloerection COWS Score: 18 [facility] Progress Note (SOAP) Subjective: agitation goose bumps sweats chills shakes interrupted sleep anxiety Objective: 04/16/17 10:40 Vital Signs Temperature 98.2 F 04/16/17 10:10 Pulse Rate 64 04/16/17 10:10 Respiratory Rate 18 04/16/17 10:10 Blood Pressure 131/88 04/16/17 10:10 O2 Sat by Pulse Oximetry (%) Laboratory Tests 04/15/17 04/16/17 22:40 07:00 WBC 2.4 L RBC 4.73 Hgb 14.2 Hct 43.0 MCV 90.9 MCH 30.0 MCHC 33.0 RDW 14.3 Plt Count 88 L MPV 10.6 Urine Color Ltyellow Urine Appearance Clear Urine pH 6.0 Ur Specific [place] 1.015 Urine Protein Negative Urine Glucose (UA) Negative Urine Ketones 1+ H Urine Blood Negative Urine Nitrite Negative Urine Bilirubin Negative Urine Urobilinogen Negative Ur Leukocyte Esterase Negative labs pending awake/alert ambulating no acute distress Assessment: 04/16/17 10:41 withdrawal sx Plan: continue detox increase fluids clonidine 0.1mg bid
[2017-04-16] MEDS ORDERED: cloNIDine HCL 0.1 MG TABLET PO ONE (11:15)
--- NOTE | 2017-04-16 12:24 | EKG ---
Test Reason : Blood Pressure : / mmHG Vent. Rate : 069 BPM Atrial Rate : 069 BPM P-R Int : 142 ms QRS Dur : 082 ms QT Int : 416 ms P-R-T Axes : 066 078 052 degrees QTc Int : 445 ms NORMAL SINUS RHYTHM NORMAL ECG WHEN COMPARED WITH ECG OF 09-OCT-2016 20:40, NO SIGNIFICANT CHANGE WAS FOUND Confirmed by VELIA YUEN MD ([id number]) on 04/16/2017 12:24:01 PM Referred By: Confirmed By:VELIA YUEN MD
[2017-04-16] MEDS: chlordiazePOXIDE HCL 25 MG CAPSULE PO PRN ×2 (12:35→18:52)
[2017-04-16] MEDS: hydrOXYzine PAMOATE 50 MG CAPSULE (FP) PO PRN ×2 (17:04→23:10)
[2017-04-16] MEDS ORDERED: CYCLOBENZAPRINE HCL 10 MG TABLET (FP) PO ONE (19:01)
[2017-04-16] MEDS: QUEtiapine FUMARATE 100 MG TABLET (FP) PO SCH (22:02)
[2017-04-16] MEDS: THIAMINE HCL 100 MG TABLET (FP) PO SCH (22:02)
[2017-04-16] MEDS: cloNIDine HCL 0.1 MG TABLET PO SCH (22:02)
[2017-04-16] MEDS: LIDOCAINE 5% TOPICAL PATCH TP SCH (22:40)
[2017-04-16] MEDS: LIDOCAINE PATCH REMOVAL MC SCH (22:40)
[2017-04-17] MEDS: chlordiazePOXIDE HCL 25 MG CAPSULE PO PRN ×3 (00:37→15:21)
[2017-04-17] MEDS ORDERED: CYCLOBENZAPRINE HCL 10 MG TABLET (FP) PO PRN (00:57)
[2017-04-17] MEDS ORDERED: CYCLOBENZAPRINE HCL 10 MG TABLET (FP) PO ONE ×2 (00:57→01:15)
[2017-04-17] MEDS: chlordiazePOXIDE HCL 25 MG CAPSULE PO SCH ×3 (03:59→18:15)
[2017-04-17] MEDS: hydrOXYzine PAMOATE 50 MG CAPSULE (FP) PO PRN (05:13)
[2017-04-17] MEDS: CYCLOBENZAPRINE HCL 10 MG TABLET (FP) PO PRN ×2 (08:53→22:36)
--- NOTE | 2017-04-17 08:54 | PN ---
[facility] Progress Note Note: pt failed to advised staff on admission that he belonged to a MMTP program now pt states today to staff that he belongs to [facility] MMTP ( [facility]) [phone]. [employer]ist spoke with Terese Watson RN and and verified that pt still belongs to the program last dosed on 03/22/17 with 35mg and has a take home bottle for 03/23/17. Now patients wants to continue the MMTP. chart writer confirmed that pt will be given 35mg of methadone for maintenance and he will return to program after pt detoxes from his alcohol dependence.
[2017-04-17] MEDS ORDERED: METHADONE HCL 10 MG TABLET PO ONE (08:55)
[2017-04-17] MEDS ORDERED: METHADONE HCL 10 MG TABLET ONE (09:15)
[2017-04-17] MEDS ORDERED: METHADONE HCL 5 MG TABLET ONE (09:17)
[2017-04-17] MEDS ORDERED: METHADONE 30 MG, METHADONE 5 MG PO ONE (09:30)
--- NOTE | 2017-04-17 09:57 | PN ---
S CIWA - CIWA Score Nausea/Vomitin-No Nausea/No Vomiting Muscle Tremors: 4-Moderate,w/Arms Extend Anxiety: 3 Agitation: 3 Paroxysmal Sweats: 3 Orientation: 0-Oriented Tacttile Disturbances: 0-None Auditory Disturbances: 0-None Visual Disturbances: 0-None Headache: 0-None Present CIWA-Ar Total Score: 13 S Progress Note (SOAP) Subjective: sweats agitation irritable body aches Objective: 04/17/17 09:55 Vital Signs Temperature 97.9 F 04/16/17 22:00 Pulse Rate 78 04/17/17 09:38 Respiratory Rate 18 04/17/17 09:38 Blood Pressure 123/90 04/17/17 09:38 O2 Sat by Pulse Oximetry (%) Laboratory Tests 04/15/17 04/16/17 04/16/17 22:40 07:00 07:00 WBC 2.4 L RBC 4.73 Hgb 14.2 Hct 43.0 MCV 90.9 MCH 30.0 MCHC 33.0 RDW 14.3 Plt Count 88 L MPV 10.6 Sodium 140 Potassium 3.6 Chloride 99 Carbon Dioxide 33 H Anion Gap 8 BUN 12 Creatinine 0.7 Creat Clearance w eGFR > 60 Random Glucose 100 Calcium 8.6 Total Bilirubin 0.5 D AST 124 H D ALT 74 Alkaline Phosphatase 107 D Total Protein 6.0 L Albumin 3.1 L Urine Color Ltyellow Urine Appearance Clear Urine pH 6.0 Ur Specific [place] 1.015 Urine Protein Negative Urine Glucose (UA) Negative Urine Ketones 1+ H Urine Blood Negative Urine Nitrite Negative Urine Bilirubin Negative Urine Urobilinogen Negative Ur Leukocyte Esterase Negative RPR Titer 04/16/17 07:00 WBC RBC Hgb Hct MCV MCH MCHC RDW Plt Count MPV Sodium Potassium Chloride Carbon Dioxide Anion Gap BUN Creatinine Creat Clearance w eGFR Random Glucose Calcium Total Bilirubin AST ALT Alkaline Phosphatase Total Protein Albumin Urine Color Urine Appearance Urine pH Ur Specific [place] Urine Protein Urine Glucose (UA) Urine Ketones Urine Blood Urine Nitrite Urine Bilirubin Urine Urobilinogen Ur Leukocyte Esterase RPR Titer Nonreactive awake/alert ambulating no acute distress Assessment: 04/17/17 09:55 withdrawal sx Plan: continue detox for alcohol dependence only pt placed on his methadone maintenance as per his program
[2017-04-17] MEDS ORDERED: METHADONE HCL 5 MG TABLET (FOR DETOX USE ONLY) PO SCH (10:00)
[2017-04-17] MEDS: cloNIDine HCL 0.1 MG TABLET PO SCH ×2 (10:13→22:36)
[2017-04-17] MEDS: PRENATAL VITAMINS W/ FOLIC ACID TABLET (FP) PO SCH (10:14)
[2017-04-17] MEDS: LIDOCAINE 5% TOPICAL PATCH TP SCH (10:14)
[2017-04-17] MEDS: NICOTINE 14 MG/24 HOURS TOPICAL PATCH TD SCH (10:15)
[2017-04-17] MEDS ORDERED: INSULIN (NOVOLOG) ASPART 100 UNITS/ML 10ML VIAL ONE (12:57)
[2017-04-17] MEDS ORDERED: LACTULOSE 20 GM/30 ML UDC (FOR ORAL USE ONLY) PO ONE (19:02)
[2017-04-17] MEDS ORDERED: LACTULOSE 20 GM/30 ML UDC (FOR ORAL USE ONLY) PO SCH (19:15)
[2017-04-17] MEDS: QUEtiapine FUMARATE 100 MG TABLET (FP) PO SCH (22:36)
[2017-04-17] MEDS: chlordiazePOXIDE 5 MG CAPSULE PO SCH (22:36)
[2017-04-17] MEDS: THIAMINE HCL 100 MG TABLET (FP) PO SCH (22:36)
[2017-04-17] MEDS: LIDOCAINE PATCH REMOVAL MC SCH (22:38)
[2017-04-18] MEDS: chlordiazePOXIDE HCL 25 MG CAPSULE PO PRN ×2 (00:43→13:26)
[2017-04-18] MEDS: chlordiazePOXIDE 5 MG CAPSULE PO SCH ×3 (05:51→17:03)
[2017-04-18] MEDS: METHADONE HCL 10 MG TABLET PO SCH (05:51)
[2017-04-18] MEDS ORDERED: METHADONE HCL 40 MG DISPERSABLE TABLET PO SCH (06:00)
[2017-04-18] MEDS ORDERED: METHADONE 30 MG, METHADONE 5 MG PO SCH (06:00)
[2017-04-18] MEDS ORDERED: METHADONE HCL 5 MG TABLET PO ONE (09:30)
[2017-04-18] MEDS: cloNIDine HCL 0.1 MG TABLET PO SCH ×2 (10:16→22:12)
[2017-04-18] MEDS: NICOTINE 14 MG/24 HOURS TOPICAL PATCH TD SCH (10:17)
[2017-04-18] MEDS: PRENATAL VITAMINS W/ FOLIC ACID TABLET (FP) PO SCH (10:17)
[2017-04-18] MEDS: LIDOCAINE 5% TOPICAL PATCH TP SCH (10:21)
--- NOTE | 2017-04-18 10:42 | PN ---
[facility] Progress Note Note: pt ammonia level result is 33.56 no s/s of confusion. pt is AAOx3, pt is irrate about his methadone decreased and wants it back up to 35mg as earlier prescribed and as prescribed by his MMTP program. will order the methadone as prescribed.
--- NOTE | 2017-04-18 10:55 | PN ---
[facility] Progress Note (SOAP) Subjective: sweats irritable agitation Objective: 04/18/17 10:54 Vital Signs Temperature 95.9 F L 04/18/17 10:00 Pulse Rate 67 04/18/17 10:00 Respiratory Rate 16 04/18/17 10:00 Blood Pressure 103/70 04/18/17 10:00 O2 Sat by Pulse Oximetry (%) awake/alert ambulating no acute distress Assessment: 04/18/17 10:55 withdrawal sx Plan: continue detox increase fluids d/c in am
[2017-04-18] MEDS: CYCLOBENZAPRINE HCL 10 MG TABLET (FP) PO PRN ×2 (14:51→22:12)
--- NOTE | 2017-04-18 20:31 | PN ---
[facility] Progress Note Note: RECEIVED NURSE REPORTS THAT THE PATIENT WANTS TO SEE A PROVIDER OBSERVED PATIENT AMBULATING ON [address] STEADY GAIT ALERT ORIENTED X 3, REQUESTS TO WEAR OWN SHOES CONTINUE DETOX
[2017-04-18] MEDS: hydrOXYzine PAMOATE 50 MG CAPSULE (FP) PO PRN (21:01)
[2017-04-18] MEDS: chlordiazePOXIDE HCL 10 MG CAPSULE PO SCH (22:12)
[2017-04-18] MEDS: LIDOCAINE PATCH REMOVAL MC SCH (22:12)
[2017-04-18] MEDS: QUEtiapine FUMARATE 100 MG TABLET (FP) PO SCH (22:13)
[2017-04-18] MEDS: THIAMINE HCL 100 MG TABLET (FP) PO SCH (22:13)
[2017-04-19] MEDS: hydrOXYzine PAMOATE 50 MG CAPSULE (FP) PO PRN (01:02)
[2017-04-19] MEDS ORDERED: METHADONE HCL 10 MG TABLET ONE (05:30)
[2017-04-19] MEDS ORDERED: METHADONE HCL 5 MG TABLET ONE (05:31)
[2017-04-19] MEDS ORDERED: METHADONE HCL 10 MG TABLET PO SCH (06:00)
[2017-04-19] MEDS ORDERED: METHADONE 30 MG, METHADONE 5 MG PO SCH (06:00)
[2017-04-19] MEDS: chlordiazePOXIDE HCL 10 MG CAPSULE PO SCH (06:02)
[2017-04-19] MEDS: METHADONE HCL 10 MG TABLET PO SCH (06:04)
[2017-04-19 06:29] VITALS: BP 109/65; PULSE 59; TEMP 97.3
--- NOTE | 2017-04-19 09:10 | DS ---
[facility] Detox Discharge Summary Admission Date: 04/15/17 Discharge Date: 04/19/17 - History Present History: Alcohol Dependence, Opioid Dependence Pertinent Past History: PPD+, nicotine dependence, insomnia, anxiety, depression - Physical Exam Results Vital Signs: Vital Signs Temperature 97.3 F L 04/19/17 06:00 Pulse Rate 59 L 04/19/17 06:00 Respiratory Rate 18 04/19/17 06:00 Blood Pressure 109/65 04/19/17 06:00 O2 Sat by Pulse Oximetry (%) Pertinent Admission Physical Exam Findings: withdrawal sx - Treatment Hospital Course: Detox Protocol Followed, Detoxed Safely, Responded well, Discharged Condition Good, Rehab Referral Accepted - Medication Discharge Medications: Ambulatory Orders Paroxetine HCl [Paxil -] 20 mg PO DAILY #30 tablet 11/07/16 Quetiapine Fumarate [Seroquel] 100 mg PO HS #30 tablet 11/07/16 Quetiapine Fumarate [Seroquel] 100 mg PO HS #30 tablet 04/16/17 - Diagnosis (1) Alcohol dependence with uncomplicated withdrawal Current Visit: Yes Status: Chronic (2) Nicotine dependence, uncomplicated Current Visit: Yes Status: Chronic Qualifiers: Nicotine product type: cigarettes Qualified Code(s): F17.210 - Nicotine dependence, cigarettes, uncomplicated (3) Opioid dependence with withdrawal Current Visit: Yes Status: Chronic (4) PPD positive, treated Current Visit: No Status: Inactive (5) ADHD (attention deficit hyperactivity disorder) Current Visit: No Status: Chronic (6) Hepatitis C carrier Current Visit: No Status: Chronic (7) Nicotine dependence Current Visit: No Status: Chronic Qualifiers: Nicotine product type: cigarettes Substance use status: in withdrawal Qualified Code(s): F17.213 - Nicotine dependence, cigarettes, with withdrawal (8) PTSD (post-traumatic stress disorder) Current Visit: No Status: Chronic (9) Sedative/hypnotic withdrawal without complication Current Visit: Yes Status: Chronic - AMA Did Patient Leave Against Medical Advice: No
[2017-04-19] MEDS: NICOTINE 14 MG/24 HOURS TOPICAL PATCH TD SCH (09:37)
[2017-04-19] MEDS: PRENATAL VITAMINS W/ FOLIC ACID TABLET (FP) PO SCH (09:37)
[2017-04-19] MEDS: LIDOCAINE 5% TOPICAL PATCH TP SCH (09:37)
[2017-04-19] MEDS: cloNIDine HCL 0.1 MG TABLET PO SCH (09:37)
[2017-04-19] MEDS ORDERED: METHADONE HCL 10 MG TABLET (FOR DETOX USE ONLY) PO SCH (10:00)
[2017-04-20] MEDS ORDERED: METHADONE HCL 5 MG TABLET (FOR DETOX USE ONLY) PO SCH (06:00)
== END 2017-04-19 09:58 | disposition home or self-care (01) | DRG 773 ==
LOC: YASAS 17:31 → Y6N 21:19
PROVIDERS: ADMIT Internal Medicine Addiction Medicine; ATTEND Internal Medicine Addiction Medicine
PROC: HZ2ZZZZ Detoxification Services for Substance Abuse Treatment (ICD-10-PCS; principal; 2017-04-15)
DX: F11.23 Opioid dependence with withdrawal (principal); F13.230 Sedative, hypnotic or anxiolytic dependence with withdrawal, uncomplicated; F10.230 Alcohol dependence with withdrawal, uncomplicated; F14.20 Cocaine dependence, uncomplicated; F12.20 Cannabis dependence, uncomplicated; F17.210 Nicotine dependence, cigarettes, uncomplicated; F90.9 Attention-deficit hyperactivity disorder, unspecified type; F43.10 Post-traumatic stress disorder, unspecified; F19.24 Other psychoactive substance dependence with psychoactive substance-induced mood disorder; B18.2 Chronic viral hepatitis C; K21.9 Gastro-esophageal reflux disease without esophagitis; R76.11 Nonspecific reaction to tuberculin skin test without active tuberculosis; Z86.69 Personal history of other diseases of the nervous system and sense organs; Z91.14 Patient's other noncompliance with medication regimen
CPT/HCPCS: 36415; 71020-TC; 80053; 81003; 82140; 85027; 86593; 93005; 93010

== ENCOUNTER 2017-10-09 08:46 | Inpatient (IN) | payer OTHER ==
[2017-10-09 09:49] VITALS: BMI 19.8
[2017-10-09] MEDS ORDERED: MENTHOL/PHENOL 1 EACH UD MM PRN (12:28)
[2017-10-09] MEDS ORDERED: MAG HYDROX/AL HYDROX/SIMETH 30 ML UNIT-DOSE CUP PO PRN (12:28)
[2017-10-09] MEDS ORDERED: ACETAMINOPHEN 325 MG TABLET (FP) PO PRN (12:28)
[2017-10-09] MEDS ORDERED: guaiFENesin/D-METHORPHAN HB 10 ML UNIT-DOSE CUPS PO PRN (12:28)
[2017-10-09] MEDS ORDERED: P-EPHED 60MG/TRIPROLIDI 2.5MG TABLET PO PRN (12:28)
[2017-10-09] MEDS ORDERED: IBUPROFEN 400 MG TABLET (FP) PO PRN (12:28)
[2017-10-09] MEDS ORDERED: LOPERAMIDE HCL 2 MG CAPSULE PO PRN (12:28)
[2017-10-09] MEDS ORDERED: MAGNESIUM HYDROX 2400MG/30ML ORAL SUSPENSION 30 ML CUP PO PRN (12:28)
[2017-10-09] MEDS ORDERED: MAGNESIUM CITRATE 300 ML BOTTLE PO PRN (12:28)
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
[2017-10-09] MEDS ORDERED: chlordiazePOXIDE HCL 25 MG CAPSULE PO ONE (12:41)
--- NOTE | 2017-10-09 13:17 | CONSULT ---
[facility] Psychiatric Consult - Data Date of interview: 10/09/17 Admission source: [facility] Identifying data: This is a 42years old male, single, father og four, living with aric on [place], with psychiatric hospitalization history, history of Biplar Disorder, PTSD, ADHD, history of alcohol, cocaine, nicotine dependence , seeking detoxification management. Substance Abuse History: - Smoking Cessation. Smoking history: Current every day smoker. Have you smoked in the past 12 months: Yes. Aproximately how many cigarettes per day: 10. Cigars Per Day: 0. Hx Chewing Tobacco Use: No. Initiated information on smoking cessation: Yes. 'Breaking Loose' booklet given : 10/09/17. - Substance & Tx. History. Hx Alcohol Use: Yes. Hx Substance Use : Yes. Substance Use Type: Alcohol, Cocaine, Heroin. Hx Substance Use Treatment: Yes (last detox [facility] 06/2017). - Substances Abused. Alcohol. Route: Oral. Frequency: Daily. Amount used: 3 pints vodka. Age of first use : 17. Date of Last Use: 10/09/17. Cocaine. Route: Injection. Frequency: Daily. Amount used: 1 gram. Age of first use: 23. Date of Last Use: . Heroin. Route: Injection. Frequency: Daily. Amount used: 1-2 bags. Age of first use: 23. Date of Last Use: 10/09/17 Medical History: HepC+, MMTP 50MG PER DAY Psychiatric History: Patient reports history of PTSD Physical/Sexual Abuse/Trauma History: Denies Additional Comment: Observation. Detox Unit Cere Protocol Mental Status Exam - Mental Status Exam Alert and Oriented to: Person Cognitive Function: Fair Patient Appearance: Unkempt Mood: Anxious Affect: Mood Congruent Patient Behavior: Cooperative Speech Pattern: Appropriate Voice Loudness: Normal Thought Process: Goal Oriented Thought Disorder: Being Controlled Hallucinations: Denies Suicidal Ideation: Denies Homicidal Ideation: Denies Insight/Judgement: Fair Sleep: Difficulty falling asleep Appetite: Weight loss Muscle strength/Tone: Mild Hypotonicity, Severe Hypotonicity Additional Comments: Observation. Detox Unit Cere Protocol Psychiatric Findings - Problem List (Stopover 1, 2,3) (1) Bipolar disorder Current Visit: Yes Status: Suspected (2) Alcohol dependence with uncomplicated withdrawal Current Visit: Yes Status: Chronic (3) Cocaine dependence Current Visit: Yes Status: Chronic Qualifiers: Substance use status: uncomplicated Qualified Code(s): F14.20 - Cocaine dependence, uncomplicated (4) Nicotine dependence Current Visit: Yes Status: Chronic Qualifiers: Nicotine product type: cigarettes Substance use status: uncomplicated Qualified Code(s): F17.210 - Nicotine dependence, cigarettes, uncomplicated (5) PTSD (post-traumatic stress disorder) Current Visit: Yes Status: Chronic (6) ADHD (attention deficit hyperactivity disorder) Current Visit: No Status: Chronic (7) Nicotine dependence, uncomplicated Current Visit: No Status: Chronic Qualifiers: Nicotine product type: cigarettes Qualified Code(s): F17.210 - Nicotine dependence, cigarettes, uncomplicated (8) Sedative/hypnotic withdrawal without complication Current Visit: No Status: Chronic - Initial Treatment Plan Initial Treatment Plan: Observation. Detox Unit Care Protocol
[2017-10-09] MEDS: chlordiazePOXIDE HCL 25 MG CAPSULE PO PRN ×2 (15:21→20:34)
--- NOTE | 2017-10-09 16:13 | EKG ---
Test Reason : Blood Pressure : / mmHG Vent. Rate : 065 BPM Atrial Rate : 065 BPM P-R Int : 132 ms QRS Dur : 084 ms QT Int : 448 ms P-R-T Axes : 058 077 058 degrees QTc Int : 465 ms NORMAL SINUS RHYTHM WITH SINUS ARRHYTHMIA MINIMAL VOLTAGE CRITERIA FOR LVH, MAY BE NORMAL VARIANT BORDERLINE ECG WHEN COMPARED WITH ECG OF 15-APR-2017 21:45, INVERTED T WAVES HAVE REPLACED NONSPECIFIC T WAVE ABNORMALITY IN ANTERIOR LEADS Confirmed by ASH VIDES MD ([id number]) on 10/09/2017 4:12:58 PM Referred By: Confirmed By:ASH VIDES MD
[2017-10-09] MEDS: chlordiazePOXIDE HCL 25 MG CAPSULE PO SCH ×2 (17:24→22:37)
[2017-10-09 18:08] LABS: URINE APPEARANCE CLEAR; URINE BILIRUBIN NEGATIVE (NEGATIVE); URINE BLOOD NEGATIVE (NEGATIVE); URINE COLOR YELLOW; URINE GLUCOSE (UA) NEGATIVE (NEGATIVE); URINE KETONE NEGATIVE (NEGATIVE); URINE LEUK ESTERASE NEGATIVE (NEGATIVE); URINE NITRITE NEGATIVE (NEGATIVE); URINE PROTEIN NEGATIVE (NEGATIVE); URINE UROBILINOGEN 4.0 E.U/dl mg/dL (0.2-1.0)
[2017-10-09] MEDS: THIAMINE HCL 100 MG TABLET (FP) PO SCH (22:37)
[2017-10-10] MEDS: chlordiazePOXIDE HCL 25 MG CAPSULE PO PRN ×2 (01:02→07:54)
[2017-10-10] MEDS: chlordiazePOXIDE HCL 25 MG CAPSULE PO SCH (05:19)
[2017-10-10] MEDS ORDERED: METHADONE HCL 10 MG TABLET PO SCH (07:30)
[2017-10-10] MEDS ORDERED: METHADONE HCL 40 MG DISPERSABLE TABLET ONE (07:46)
[2017-10-10] MEDS ORDERED: METHADONE HCL 10 MG TABLET ONE (07:47)
[2017-10-10] MEDS: METHADONE 40 MG, METHADONE 10 MG PO SCH (07:48)
[2017-10-10] MEDS ORDERED: diazePAM 5 MG TABLET PO ONE (09:14)
--- NOTE | 2017-10-10 09:23 | PN ---
S CIWA - CIWA Score Nausea/Vomitin Muscle Tremors: 3 Anxiety: 3 Agitation: 3 Paroxysmal Sweats: 1-Minimal Palms Moist Orientation: 0-Oriented Tacttile Disturbances: 1-Very Mild Itch/Numbness Auditory Disturbances: 1-Very Mild Visual Disturbances: 0-None Headache: 2-Mild CIWA-Ar Total Score: 17 BHS Progress Note (SOAP) Subjective: ALERT,IRRITABLE,ANXIOUS,INTERRUPTED SLEEP,TREMOR,PAIN IN THE BODY Objective: 10/10/17 09:20 Vital Signs Temperature 97.3 F L 10/10/17 06:49 Pulse Rate 55 L 10/10/17 06:49 Respiratory Rate 16 10/10/17 06:49 Blood Pressure 108/68 10/10/17 06:49 O2 Sat by Pulse Oximetry (%) EKG NSR WITH SINUS ARRHYTHMIA,LH INVERTED T IN V1 ,V2,PROLONG QT 448/465 , REPEAT EKG SINUS BRADYCARDIA 56/MIN QT/QTC 436/420 NO CHEST PAIN,NO SOB,NO DIZZINESS Laboratory Last Values Urine Color Yellow 10/09/17 16:00 Urine Appearance Clear 10/09/17 16:00 Urine pH 6.0 (5.0-8.0) 10/09/17 16:00 Ur Specific [place] 1.016 (1.001-1.035) 10/09/17 16:00 Urine Protein Negative (NEGATIVE) 10/09/17 16:00 Urine Glucose (UA) Negative (NEGATIVE) 10/09/17 16:00 Urine Ketones Negative (NEGATIVE) 10/09/17 16:00 Urine Blood Negative (NEGATIVE) 10/09/17 16:00 Urine Nitrite Negative (NEGATIVE) 10/09/17 16:00 Urine Bilirubin Negative (NEGATIVE) 10/09/17 16:00 Urine Urobilinogen 4.0 e.u/dl mg/dL (0.2-1.0) 10/09/17 16:00 Ur Leukocyte Esterase Negative (NEGATIVE) 10/09/17 16:00 HIV 1&2 Antibody Screen Negative 10/09/17 11:50 HIV P24 Antigen Negative 10/09/17 11:50 LABS PENDING 10/10/17 09:23 10/10/17 09:26 Assessment: 10/10/17 09:22 WITHDRAWAL SYMPTOM,REGIMEN CHANGED TO VALIUM BY PATIENT'S REQUEST,PSYCHIATRIC EVALUATION FOR BIPOLAR WITH DEPRESSION 10/10/17 09:28 Plan: CONTINUE DETOX
[2017-10-10 10:23] LABS: HEMATOCRIT 39.4 % (35.4-49); HEMOGLOBIN 12.7 GM/dL (11.7-16.9); MCH 28.6 pg (25.7-33.7); MCHC 32.1 g/dl (32.0-35.9); MEAN CELL VOLUME 88.9 fl (80-96); MEAN PLT VOLUME 10.8 fl (7.5-11.1); PLATELET COUNT 116 K/MM3 (134-434); RBC 4.43 M/mm3 (4.00-5.60); RDW 13.1 % (11.9-15.9)
[2017-10-10 10:27] LABS: CHLORIDE 100 mmol/L (98-107); POTASSIUM 4.3 mmol/L (3.5-5.1); SODIUM 139 mmol/L (136-145)
[2017-10-10] MEDS: NICOTINE 21 MG/24 HOURS TOPICAL PATCH TD SCH (10:32)
[2017-10-10] MEDS: PRENATAL VITAMINS W/ FOLIC ACID TABLET (FP) PO SCH (10:32)
[2017-10-10 10:34] LABS: ALBUMIN 3.7 g/dl (3.4-5.0); ALK PHOS 62 U/L (45-117); ANION GAP 10 (8-16); BILIRUBIN,TOTAL 0.7 mg/dL (0.2-1.0); BLOOD UREA NITROGEN 14 mg/dL (7-18); CO2 29 mmol/L (21-32); CREATININE 0.9 mg/dL (0.7-1.3); GLUCOSE,RANDOM 89 mg/dL (74-106); SGOT/AST 54 U/L (15-37); SGPT/ALT 87 U/L (12-78); TOT PROT 7.3 g/dl (6.4-8.2)
--- NOTE | 2017-10-10 12:10 | PN ---
Psychiatric Progress Note Vital Signs: Vital Signs Period Temp Pulse Resp BP Sys/Moore Pulse Ox Last 24 Hr 97.3 F-98.2 F 55-81 16-19 104-118/65-75 Date of Session: 10/10/17 Chief Complaint:: " I need to restart my medications." HPI: Pt. admitted to for opioid dependence. ROS: Unremarkable. Current Medications: Active Medications Generic Name Dose Route Start Last Admin Trade Name Freq PRN Reason Stop Dose Admin Acetaminophen 650 mg 10/09/17 12:28 Tylenol - PO Q4H PRN FEVER Al Hydroxide/Mg Hydroxide 30 ml 10/09/17 12:28 Mylanta Oral Suspension - PO Q6H PRN DYSPEPSIA Diazepam 5 mg 10/10/17 14:00 Valium - PO 10/11/17 22:01 TID THEA Diazepam 5 mg 10/12/17 10:00 Valium - PO 10/13/17 22:01 BID [facility] Diazepam 5 mg 10/14/17 10:00 Valium - PO 10/14/17 10:01 DAILY [facility] Diazepam 10 mg 10/10/17 09:14 Valium - PO 10/13/17 09:13 Q4H PRN WITHDRAWAL(CONT SUBST) Eucalyptus/Menthol/Phenol/Sorbitol 1 each 10/09/17 12:28 Cepastat Lozenge - MM Q4H PRN SORE THROAT Guaifenesin 10 ml 10/09/17 12:28 Robitussin Dm - PO Q6H PRN COUGH Hydroxyzine Pamoate 50 mg 10/09/17 12:28 Vistaril - PO Q4H PRN AGITATION Ibuprofen 400 mg 10/09/17 12:28 Motrin - PO Q6H PRN PAIN LEVEL 4-6 Loperamide HCl 4 mg 10/09/17 12:28 Imodium - PO Q6H PRN DIARRHEA Magnesium Citrate 300 ml 10/09/17 12:28 Citroma - PO Q48H PRN CONSTIPATION Magnesium Hydroxide 30 ml 10/09/17 12:28 Milk Of Magnesia - PO DAILY PRN CONSTIPATION Methadone HCl 40 mg/ Methadone 50 mg 10/10/17 07:45 10/10/17 07:48 HCl 10 mg PO 50 mg DAILY@0600 [facility] Administration Nicotine 21 mg 10/10/17 10:00 10/10/17 10:32 Nicoderm Patch - TD 21 mg DAILY THEA Administration Paroxetine HCl 20 mg 10/10/17 11:30 Paxil - PO DAILY THEA Multivit/Folic Acid/Iron 1 tab 10/10/17 10:00 10/10/17 10:32 Vitamins (Sjr) - PO 1 tab DAILY THEA Administration Pseudoephedrine/Triprolidine 1 combo 10/09/17 12:28 Actifed - PO TID PRN NASAL CONGESTION Quetiapine Fumarate 50 mg 10/10/17 22:00 Seroquel - PO HS THEA Thiamine HCl 100 mg 10/09/17 22:00 10/09/17 22:37 Vitamin B1 - PO 100 mg HS THEA Administration Medication(s) Change(s): Yes. Will add Prozac 20mg PO daily and Seroquel 50mg qhs. Current Side Effect: No Lab tests ordered: No Lab tests reviewed: Yes Provider note:: Diet Aide met with patient for psychiatric reconsultation. Pt. requesting to restart his mediction of prozac and seroquel. Dr. Veliz's note read and appreciated. Chart reviewed. Pt. reports three psychiatric hospitalization, most recent hospitalization occuring at [facility] one year ago. States outpatient psychiatric care is provided by [facility] and was last seen by a psychiatrist last month. Diagnoses of Bipolar disorder. Pt. reports not taking medications in one month secondary to drug use. Pt. requesting to restart medication. Will order paxil 20mg and seroquel 50mg qhs. Benefits and side effects discussed. Verbal consent given. Will continue to monitor. Total face to face time:: 35 Mental Status Exam - Mental Status Exam Alert and Oriented to: Time, Place, Person Cognitive Function: Good Patient Appearance: Unkempt Mood: Withdrawn, Euthymic Affect: Mood Congruent Patient Behavior: Cooperative (Irrritable, agitated but cooperative. ), Agitated Speech Pattern: Appropriate Voice Loudness: Normal Thought Process: Goal Oriented Thought Disorder: Not Present Hallucinations: Denies Suicidal Ideation: Denies Homicidal Ideation: Denies Insight/Judgement: Poor Sleep: Poorly Appetite: Fair Muscle strength/Tone: Normal Gait/Station: Normal Psychiatric Treatment Plan - Problem List (1) Alcohol dependence with uncomplicated withdrawal Current Visit: Yes (2) Cocaine dependence Current Visit: Yes Qualifiers: Substance use status: uncomplicated Qualified Code(s): F14.20 - Cocaine dependence, uncomplicated (3) Nicotine dependence Current Visit: Yes Qualifiers: Nicotine product type: cigarettes Substance use status: uncomplicated Qualified Code(s): F17.210 - Nicotine dependence, cigarettes, uncomplicated (4) Bipolar disorder Current Visit: Yes Comment: self reports.
[2017-10-10] MEDS: PARoxetine HCL 20 MG TABLET (FP) PO SCH (12:30)
[2017-10-10] MEDS: diazePAM 5 MG TABLET PO SCH ×2 (13:04→22:32)
[2017-10-10] MEDS: diazePAM 5 MG TABLET PO PRN (16:43)
[2017-10-10] MEDS ORDERED: chlordiazePOXIDE HCL 25 MG CAPSULE PO SCH (17:00)
[2017-10-10] MEDS: QUEtiapine FUMARATE 50 MG TABLET PO SCH (22:32)
[2017-10-10] MEDS: THIAMINE HCL 100 MG TABLET (FP) PO SCH (22:33)
[2017-10-11] MEDS ORDERED: METHADONE HCL 10 MG TABLET ONE (03:15)
[2017-10-11] MEDS ORDERED: METHADONE HCL 40 MG DISPERSABLE TABLET ONE (03:15)
[2017-10-11] MEDS: diazePAM 5 MG TABLET PO SCH ×3 (05:29→21:38)
[2017-10-11] MEDS: METHADONE 40 MG, METHADONE 10 MG PO SCH (05:29)
[2017-10-11] MEDS: diazePAM 5 MG TABLET PO PRN ×2 (09:08→17:25)
[2017-10-11] MEDS: PRENATAL VITAMINS W/ FOLIC ACID TABLET (FP) PO SCH (10:51)
[2017-10-11] MEDS: NICOTINE 21 MG/24 HOURS TOPICAL PATCH TD SCH (10:52)
[2017-10-11] MEDS: PARoxetine HCL 20 MG TABLET (FP) PO SCH (10:52)
[2017-10-11] MEDS: hydrOXYzine PAMOATE 50 MG CAPSULE (FP) PO PRN ×2 (10:54→19:14)
[2017-10-11] MEDS ORDERED: chlordiazePOXIDE 5 MG CAPSULE PO SCH (17:00)
--- NOTE | 2017-10-11 20:47 | PN ---
BHS CIWA - CIWA Score Nausea/Vomitin Muscle Tremors: 3 Anxiety: 3 Agitation: 4-Moderately Restless Paroxysmal Sweats: 3 Orientation: 0-Oriented Tacttile Disturbances: 0-None Auditory Disturbances: 0-None Visual Disturbances: 0-None Headache: 0-None Present CIWA-Ar Total Score: 16 BHS Progress Note (SOAP) Subjective: anxious sleepless Objective: 10/11/17 20:46 a& O x 3 Vital Signs Temperature 96.3 F L 10/11/17 18:12 Pulse Rate 67 10/11/17 18:12 Respiratory Rate 18 10/11/17 18:12 Blood Pressure 119/68 10/11/17 18:12 O2 Sat by Pulse Oximetry (%) Assessment: 10/11/17 20:46 withdrawal sx Plan: continue detox
[2017-10-11] MEDS: QUEtiapine FUMARATE 50 MG TABLET PO SCH (21:38)
[2017-10-11] MEDS: THIAMINE HCL 100 MG TABLET (FP) PO SCH (21:38)
[2017-10-12] MEDS: diazePAM 5 MG TABLET PO PRN ×4 (01:04→15:35)
[2017-10-12] MEDS ORDERED: METHADONE HCL 10 MG TABLET ONE (05:37)
[2017-10-12] MEDS ORDERED: METHADONE HCL 40 MG DISPERSABLE TABLET ONE (05:37)
[2017-10-12] MEDS: METHADONE 40 MG, METHADONE 10 MG PO SCH (05:38)
[2017-10-12] MEDS: PRENATAL VITAMINS W/ FOLIC ACID TABLET (FP) PO SCH (10:32)
[2017-10-12] MEDS: PARoxetine HCL 20 MG TABLET (FP) PO SCH (10:32)
[2017-10-12] MEDS: NICOTINE 21 MG/24 HOURS TOPICAL PATCH TD SCH (10:32)
[2017-10-12] MEDS: diazePAM 5 MG TABLET PO SCH ×2 (10:32→22:23)
--- NOTE | 2017-10-12 11:33 | PN ---
BHS Progress Note (SOAP) Subjective: tremor GI upset irritable anxiety Objective: 10/12/17 11:28 Vital Signs Temperature 97.5 F L 10/12/17 10:00 Pulse Rate 74 10/12/17 10:00 Respiratory Rate 16 10/12/17 10:00 Blood Pressure 97/71 10/12/17 10:00 O2 Sat by Pulse Oximetry (%) Laboratory Last Values WBC 4.0 K/mm3 (4.0-10.0) D 10/10/17 06:00 RBC 4.43 M/mm3 (4.00-5.60) 10/10/17 06:00 Hgb 12.7 GM/dL (11.7-16.9) D 10/10/17 06:00 Hct 39.4 % (35.4-49) 10/10/17 06:00 MCV 88.9 fl (80-96) 10/10/17 06:00 MCH 28.6 pg (25.7-33.7) 10/10/17 06:00 MCHC 32.1 g/dl (32.0-35.9) 10/10/17 06:00 RDW 13.1 % (11.9-15.9) 10/10/17 06:00 Plt Count 116 K/MM3 (134-434) L D 10/10/17 06:00 MPV 10.8 fl (7.5-11.1) 10/10/17 06:00 Sodium 139 mmol/L (136-145) 10/10/17 06:00 Potassium 4.3 mmol/L (3.5-5.1) 10/10/17 06:00 Chloride 100 mmol/L (98-107) 10/10/17 06:00 Carbon Dioxide 29 mmol/L (21-32) 10/10/17 06:00 Anion Gap 10 (8-16) 10/10/17 06:00 BUN 14 mg/dL (7-18) 10/10/17 06:00 Creatinine 0.9 mg/dL (0.7-1.3) D 10/10/17 06:00 Creat Clearance w eGFR > 60 (>60) 10/10/17 06:00 Random Glucose 89 mg/dL (74-106) 10/10/17 06:00 Calcium 9.0 mg/dL (8.5-10.1) 10/10/17 06:00 Total Bilirubin 0.7 mg/dL (0.2-1.0) D 10/10/17 06:00 AST 54 U/L (15-37) H D 10/10/17 06:00 ALT 87 U/L (12-78) H 10/10/17 06:00 Alkaline Phosphatase 62 U/L (45-117) D 10/10/17 06:00 Total Protein 7.3 g/dl (6.4-8.2) D 10/10/17 06:00 Albumin 3.7 g/dl (3.4-5.0) 10/10/17 06:00 Urine Color Yellow 10/09/17 16:00 Urine Appearance Clear 10/09/17 16:00 Urine pH 6.0 (5.0-8.0) 10/09/17 16:00 Ur Specific [place] 1.016 (1.001-1.035) 10/09/17 16:00 Urine Protein Negative (NEGATIVE) 10/09/17 16:00 Urine Glucose (UA) Negative (NEGATIVE) 10/09/17 16:00 Urine Ketones Negative (NEGATIVE) 10/09/17 16:00 Urine Blood Negative (NEGATIVE) 10/09/17 16:00 Urine Nitrite Negative (NEGATIVE) 10/09/17 16:00 Urine Bilirubin Negative (NEGATIVE) 10/09/17 16:00 Urine Urobilinogen 4.0 e.u/dl mg/dL (0.2-1.0) 10/09/17 16:00 Ur Leukocyte Esterase Negative (NEGATIVE) 10/09/17 16:00 RPR Titer Nonreactive (NONREACTIVE) 10/10/17 06:00 HIV 1&2 Antibody Screen Negative 10/09/17 11:50 HIV P24 Antigen Negative 10/09/17 11:50 lab noted Assessment: 10/12/17 11:29 mild withdrawal sx Plan: continue detox increase oral fluid begin zantac
[2017-10-12] MEDS: RANITIDINE HCL 150 MG TABLET (FP) PO SCH ×2 (12:21→22:23)
[2017-10-12] MEDS: hydrOXYzine PAMOATE 50 MG CAPSULE (FP) PO PRN (16:51)
[2017-10-12] MEDS ORDERED: chlordiazePOXIDE HCL 10 MG CAPSULE PO SCH (17:00)
[2017-10-12] MEDS: THIAMINE HCL 100 MG TABLET (FP) PO SCH (22:23)
[2017-10-12] MEDS: QUEtiapine FUMARATE 50 MG TABLET PO SCH (22:23)
[2017-10-13] MEDS: diazePAM 5 MG TABLET PO PRN ×2 (00:21→05:30)
[2017-10-13] MEDS ORDERED: METHADONE HCL 10 MG TABLET ONE (05:03)
[2017-10-13] MEDS ORDERED: METHADONE HCL 40 MG DISPERSABLE TABLET ONE (05:03)
[2017-10-13] MEDS: METHADONE 40 MG, METHADONE 10 MG PO SCH (05:29)
[2017-10-13] MEDS: PRENATAL VITAMINS W/ FOLIC ACID TABLET (FP) PO SCH (10:11)
[2017-10-13] MEDS: RANITIDINE HCL 150 MG TABLET (FP) PO SCH ×2 (10:11→22:20)
[2017-10-13] MEDS: PARoxetine HCL 20 MG TABLET (FP) PO SCH (10:11)
[2017-10-13] MEDS: diazePAM 5 MG TABLET PO SCH ×2 (10:11→22:19)
[2017-10-13] MEDS: NICOTINE 21 MG/24 HOURS TOPICAL PATCH TD SCH (10:11)
--- NOTE | 2017-10-13 11:20 | PN ---
S Progress Note (SOAP) Subjective: ALERT,IRRITABLE,ANXIOUS,INTERRUPTED SLEEP, Objective: 10/13/17 11:19 Vital Signs Temperature 97.3 F L 10/13/17 11:08 Pulse Rate 18 L 10/13/17 11:08 Respiratory Rate 20 10/13/17 11:08 Blood Pressure 99/59 10/13/17 11:08 O2 Sat by Pulse Oximetry (%) Assessment: 10/13/17 11:19 WITHDRAWAL SYMPTOM Plan: CONTINUE DETOX,DISCHARGE IN AM
[2017-10-13] MEDS: hydrOXYzine PAMOATE 50 MG CAPSULE (FP) PO PRN (14:34)
[2017-10-13] MEDS: THIAMINE HCL 100 MG TABLET (FP) PO SCH (22:19)
[2017-10-13] MEDS: QUEtiapine FUMARATE 50 MG TABLET PO SCH (22:19)
[2017-10-14] MEDS ORDERED: METHADONE HCL 40 MG DISPERSABLE TABLET ONE (04:33)
[2017-10-14] MEDS ORDERED: METHADONE HCL 10 MG TABLET ONE (04:33)
[2017-10-14] MEDS: METHADONE 40 MG, METHADONE 10 MG PO SCH (05:54)
--- NOTE | 2017-10-14 08:58 | DS ---
[facility] Detox Discharge Summary Admission Date: 10/09/17 Discharge Date: 10/14/17 - History Present History: Alcohol Dependence, Cocaine Dependence, MMTP Additional Comments: follow up with after care program as arrangement Pertinent Past History: hepatitis c ptsd bipolar disorder - Physical Exam Results Vital Signs: Vital Signs Temperature 97.5 F L 10/14/17 06:16 Pulse Rate 10/14/17 06:16 Respiratory Rate 10/14/17 06:16 Blood Pressure 108/67 10/14/17 06:16 O2 Sat by Pulse Oximetry (%) Pertinent Admission Physical Exam Findings: withdrawal sign and symptom Vital Signs Temperature 97.5 F L 10/14/17 06:16 Pulse Rate 10/14/17 06:16 Respiratory Rate 10/14/17 06:16 Blood Pressure 108/67 10/14/17 06:16 O2 Sat by Pulse Oximetry (%) - Treatment Hospital Course: Detox Protocol Followed, Detoxed Safely, Responded well, Discharged Condition Good, Rehab Referral Accepted Patient has Accepted [facility] Ref[facility] - Medication Discharge Medications: Ambulatory Orders NK [No Known Home Medication] 10/09/17 - Diagnosis (1) Alcohol dependence with uncomplicated withdrawal Current Visit: Yes Status: Chronic (2) Cocaine dependence Current Visit: Yes Status: Chronic Qualifiers: Substance use status: uncomplicated Qualified Code(s): F14.20 - Cocaine dependence, uncomplicated (3) Hepatitis C carrier Current Visit: Yes Status: Chronic (4) Nicotine dependence Current Visit: Yes Status: Chronic Qualifiers: Nicotine product type: cigarettes Substance use status: uncomplicated Qualified Code(s): F17.210 - Nicotine dependence, cigarettes, uncomplicated (5) PTSD (post-traumatic stress disorder) Current Visit: Yes Status: Chronic (6) Bipolar disorder Current Visit: Yes Status: Suspected (7) Nicotine dependence, uncomplicated Current Visit: No Status: Chronic Qualifiers: Nicotine product type: cigarettes Qualified Code(s): F17.210 - Nicotine dependence, cigarettes, uncomplicated (8) Methadone maintenance therapy patient Current Visit: Yes Status: Acute - AMA Did Patient Leave Against Medical Advice: No
[2017-10-14] MEDS ORDERED: diazePAM 5 MG TABLET PO SCH (10:00)
[2017-10-14] MEDS: PARoxetine HCL 20 MG TABLET (FP) PO SCH (10:49)
[2017-10-14] MEDS: PRENATAL VITAMINS W/ FOLIC ACID TABLET (FP) PO SCH (10:49)
[2017-10-14] MEDS: RANITIDINE HCL 150 MG TABLET (FP) PO SCH (10:49)
[2017-10-14] MEDS: NICOTINE 21 MG/24 HOURS TOPICAL PATCH TD SCH (10:49)
--- NOTE | 2017-10-14 13:37 | EKG ---
Test Reason : Blood Pressure : / mmHG Vent. Rate : 056 BPM Atrial Rate : 056 BPM P-R Int : 132 ms QRS Dur : 086 ms QT Int : 436 ms P-R-T Axes : 046 069 048 degrees QTc Int : 420 ms SINUS BRADYCARDIA OTHERWISE NORMAL ECG WHEN COMPARED WITH ECG OF 09-OCT-2017 13:53, NO SIGNIFICANT CHANGE WAS FOUND Confirmed by MD Boateng Daniel ([id number]) on 10/14/2017 1:37:32 PM Referred By: Confirmed By:Anton Boateng MD
[2017-10-14 14:15] VITALS: BP 124/68; PULSE 79; TEMP 98.3
== END 2017-10-14 14:45 | disposition other institution (70) | DRG 773 ==
LOC: YASAS 08:46 → Y6N 12:22
PROVIDERS: ADMIT Internal Medicine; ATTEND Internal Medicine
PROC: HZ2ZZZZ Detoxification Services for Substance Abuse Treatment (ICD-10-PCS; principal; 2017-10-09)
DX: F11.20 Opioid dependence, uncomplicated (principal); F13.230 Sedative, hypnotic or anxiolytic dependence with withdrawal, uncomplicated; F10.230 Alcohol dependence with withdrawal, uncomplicated; F14.20 Cocaine dependence, uncomplicated; F17.210 Nicotine dependence, cigarettes, uncomplicated; F31.9 Bipolar disorder, unspecified; F43.10 Post-traumatic stress disorder, unspecified; F90.9 Attention-deficit hyperactivity disorder, unspecified type; B18.2 Chronic viral hepatitis C
CPT/HCPCS: 36415; 80053; 81003; 85027; 86593; 87389; 93005; 93010

== ENCOUNTER 2017-10-14 14:52 | Inpatient (IN) | payer OTHER ==
--- NOTE | 2017-10-14 16:00 | HP ---
STEVIE LANG Rehab Assess/Revision - Admission History Admitted to Rehab from: [facility] Date of Admission to Rehab: 10/14/17 - Vital signs Vital Signs: Vital Signs Period Temp Pulse Resp BP Sys/Moore Pulse Ox Last 24 Hr 97 F 74 20 105/64 - Findings Detox History & Physical reviewed: Yes Concur with findings: Yes Comments/Additional Findings: for rehab as protocol Inpatient Rehab Admission - Initial Determination Are CD services needed?: Yes Free of communicable disease: Yes Not in need of hospitalization: Yes - Rehab Admission Criteria Previous failed treatment: Yes Poor recovery environment: Yes Comorbidities: Yes Lacks judgement: No Patient is meeting Inpatient Rehab admission criteria:: Yes
[2017-10-14] MEDS ORDERED: MENTHOL/PHENOL 1 EACH UD MM PRN (16:01)
[2017-10-14] MEDS ORDERED: MAGNESIUM CITRATE 300 ML BOTTLE PO PRN (16:01)
[2017-10-14] MEDS ORDERED: IBUPROFEN 400 MG TABLET (FP) PO PRN (16:01)
[2017-10-14] MEDS ORDERED: MAGNESIUM HYDROX 2400MG/30ML ORAL SUSPENSION 30 ML CUP PO PRN (16:01)
[2017-10-14] MEDS ORDERED: LOPERAMIDE HCL 2 MG CAPSULE PO PRN (16:01)
[2017-10-14] MEDS ORDERED: guaiFENesin/D-METHORPHAN HB 10 ML UNIT-DOSE CUPS PO PRN (16:01)
[2017-10-14] MEDS ORDERED: ACETAMINOPHEN 325 MG TABLET (FP) PO PRN (16:01)
[2017-10-14] MEDS ORDERED: P-EPHED 60MG/TRIPROLIDI 2.5MG TABLET PO PRN (16:01)
[2017-10-14] MEDS: THIAMINE HCL 100 MG TABLET (FP) PO SCH (21:43)
[2017-10-14] MEDS ORDERED: QUEtiapine FUMARATE 50 MG TABLET PO SCH (22:00)
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
[2017-10-15] MEDS ORDERED: METHADONE HCL 10 MG TABLET PO SCH (07:45)
[2017-10-15] MEDS ORDERED: METHADONE HCL 10 MG TABLET ONE (08:41)
[2017-10-15] MEDS ORDERED: METHADONE HCL 40 MG DISPERSABLE TABLET ONE (08:41)
[2017-10-15] MEDS: METHADONE 40 MG, METHADONE 10 MG PO SCH (08:42)
[2017-10-15] MEDS: NICOTINE 21 MG/24 HOURS TOPICAL PATCH TD SCH (10:11)
[2017-10-15] MEDS: PARoxetine HCL 20 MG TABLET (FP) PO SCH (10:11)
[2017-10-15] MEDS: PRENATAL VITAMINS W/ FOLIC ACID TABLET (FP) PO SCH (10:11)
[2017-10-15] MEDS ORDERED: hydrOXYzine PAMOATE 50 MG CAPSULE (FP) PO PRN (10:27)
[2017-10-15] MEDS: hydrOXYzine PAMOATE 50 MG CAPSULE (FP) PO PRN ×2 (11:09→15:32)
[2017-10-15] MEDS: QUEtiapine FUMARATE 50 MG TABLET PO SCH (11:09)
[2017-10-15] MEDS: QUEtiapine FUMARATE 100 MG TABLET (FP) PO SCH (21:33)
[2017-10-15] MEDS: THIAMINE HCL 100 MG TABLET (FP) PO SCH (21:33)
[2017-10-16] MEDS ORDERED: METHADONE HCL 40 MG DISPERSABLE TABLET ONE (03:24)
[2017-10-16] MEDS ORDERED: METHADONE HCL 10 MG TABLET ONE (03:24)
[2017-10-16] MEDS: METHADONE 40 MG, METHADONE 10 MG PO SCH (06:01)
[2017-10-16] MEDS: QUEtiapine FUMARATE 50 MG TABLET PO SCH (09:47)
[2017-10-16] MEDS: NICOTINE 21 MG/24 HOURS TOPICAL PATCH TD SCH (09:47)
[2017-10-16] MEDS: hydrOXYzine PAMOATE 50 MG CAPSULE (FP) PO PRN ×4 (09:47→21:07)
[2017-10-16] MEDS: PRENATAL VITAMINS W/ FOLIC ACID TABLET (FP) PO SCH (09:47)
[2017-10-16] MEDS: PARoxetine HCL 20 MG TABLET (FP) PO SCH (09:47)
[2017-10-16] MEDS: QUEtiapine FUMARATE 100 MG TABLET (FP) PO SCH (21:06)
[2017-10-16] MEDS: THIAMINE HCL 100 MG TABLET (FP) PO SCH (21:06)
[2017-10-17] MEDS ORDERED: METHADONE HCL 10 MG TABLET ONE (03:31)
[2017-10-17] MEDS ORDERED: METHADONE HCL 40 MG DISPERSABLE TABLET ONE (03:31)
[2017-10-17] MEDS: METHADONE 40 MG, METHADONE 10 MG PO SCH (05:57)
[2017-10-17] MEDS: PARoxetine HCL 20 MG TABLET (FP) PO SCH (09:52)
[2017-10-17] MEDS: PRENATAL VITAMINS W/ FOLIC ACID TABLET (FP) PO SCH (09:52)
[2017-10-17] MEDS: NICOTINE 21 MG/24 HOURS TOPICAL PATCH TD SCH (09:52)
[2017-10-17] MEDS: QUEtiapine FUMARATE 50 MG TABLET PO SCH (09:53)
[2017-10-17] MEDS: hydrOXYzine PAMOATE 50 MG CAPSULE (FP) PO PRN ×3 (09:54→21:20)
[2017-10-17] MEDS: QUEtiapine FUMARATE 100 MG TABLET (FP) PO SCH (21:19)
[2017-10-17] MEDS: THIAMINE HCL 100 MG TABLET (FP) PO SCH (21:19)
[2017-10-18] MEDS: hydrOXYzine PAMOATE 50 MG CAPSULE (FP) PO PRN ×4 (01:45→21:21)
[2017-10-18] MEDS ORDERED: METHADONE HCL 10 MG TABLET ONE (05:55)
[2017-10-18] MEDS ORDERED: METHADONE HCL 40 MG DISPERSABLE TABLET ONE (05:55)
[2017-10-18] MEDS: METHADONE 40 MG, METHADONE 10 MG PO SCH (06:03)
[2017-10-18] MEDS: NICOTINE 21 MG/24 HOURS TOPICAL PATCH TD SCH (09:43)
[2017-10-18] MEDS: PARoxetine HCL 20 MG TABLET (FP) PO SCH (09:43)
[2017-10-18] MEDS: QUEtiapine FUMARATE 50 MG TABLET PO SCH (09:43)
[2017-10-18] MEDS: PRENATAL VITAMINS W/ FOLIC ACID TABLET (FP) PO SCH (09:43)
[2017-10-18] MEDS: MAG HYDROX/AL HYDROX/SIMETH 30 ML UNIT-DOSE CUP PO PRN ×2 (11:58→19:35)
[2017-10-18] MEDS: THIAMINE HCL 100 MG TABLET (FP) PO SCH (21:20)
[2017-10-18] MEDS: QUEtiapine FUMARATE 100 MG TABLET (FP) PO SCH (21:20)
[2017-10-19] MEDS ORDERED: METHADONE HCL 40 MG DISPERSABLE TABLET ONE (03:10)
[2017-10-19] MEDS ORDERED: METHADONE HCL 10 MG TABLET ONE (03:10)
[2017-10-19] MEDS: METHADONE 40 MG, METHADONE 10 MG PO SCH (06:03)
[2017-10-19] MEDS: hydrOXYzine PAMOATE 50 MG CAPSULE (FP) PO PRN ×3 (06:04→21:20)
[2017-10-19] MEDS: QUEtiapine FUMARATE 50 MG TABLET PO SCH (09:48)
[2017-10-19] MEDS: PARoxetine HCL 20 MG TABLET (FP) PO SCH (09:48)
[2017-10-19] MEDS: NICOTINE 21 MG/24 HOURS TOPICAL PATCH TD SCH (09:48)
[2017-10-19] MEDS: PRENATAL VITAMINS W/ FOLIC ACID TABLET (FP) PO SCH (09:48)
[2017-10-19] MEDS: QUEtiapine FUMARATE 100 MG TABLET (FP) PO SCH (21:20)
[2017-10-19] MEDS: THIAMINE HCL 100 MG TABLET (FP) PO SCH (21:20)
[2017-10-20] MEDS ORDERED: METHADONE HCL 10 MG TABLET ONE (03:09)
[2017-10-20] MEDS ORDERED: METHADONE HCL 40 MG DISPERSABLE TABLET ONE (03:10)
[2017-10-20] MEDS: METHADONE 40 MG, METHADONE 10 MG PO SCH (06:02)
[2017-10-20] MEDS: hydrOXYzine PAMOATE 50 MG CAPSULE (FP) PO PRN ×3 (06:03→17:40)
[2017-10-20] MEDS: NICOTINE 21 MG/24 HOURS TOPICAL PATCH TD SCH (09:59)
[2017-10-20] MEDS: PRENATAL VITAMINS W/ FOLIC ACID TABLET (FP) PO SCH (09:59)
[2017-10-20] MEDS: QUEtiapine FUMARATE 50 MG TABLET PO SCH (09:59)
[2017-10-20] MEDS: PARoxetine HCL 20 MG TABLET (FP) PO SCH (09:59)
--- NOTE | 2017-10-20 13:42 | PN ---
Psychiatric Progress Note Vital Signs: Vital Signs Period Temp Pulse Resp BP Sys/Moore Pulse Ox Last 24 Hr 97.2 F 77 16-16 97/65 Date of Session: 10/20/17 Chief Complaint:: Anxiety HPI: Patient addressing Alcohol and Cocaine Dependence comorbid with Opoid Dependence on Agonist Therapy, Nicotine Dependence, Bipolar Disorder, PTSD and Substance-Induced Anxiety Disorder ROS: Hep C, PPD+ Current Medications: Active Medications Generic Name Dose Route Start Last Admin Trade Name Freq PRN Reason Stop Dose Admin Acetaminophen 650 mg 10/14/17 16:01 Tylenol - PO Q4H PRN FEVER Al Hydroxide/Mg Hydroxide 30 ml 10/14/17 16:01 10/18/17 19:35 Mylanta Oral Suspension - PO 30 ml Q6H PRN Administration DYSPEPSIA Eucalyptus/Menthol/Phenol/Sorbitol 1 each 10/14/17 16:01 Cepastat Lozenge - MM Q4H PRN SORE THROAT Guaifenesin 10 ml 10/14/17 16:01 Robitussin Dm - PO Q6H PRN COUGH Hydroxyzine Pamoate 50 mg 10/14/17 16:01 10/20/17 10:00 Vistaril - PO 50 mg Q4H PRN Administration AGITATION Ibuprofen 400 mg 10/14/17 16:01 Motrin - PO Q6H PRN Pain Level 4-6 Loperamide HCl 4 mg 10/14/17 16:01 Imodium - PO Q6H PRN DIARRHEA Magnesium Citrate 300 ml 10/14/17 16:01 Citroma - PO Q48H PRN CONSTIPATION Magnesium Hydroxide 30 ml 10/14/17 16:01 Milk Of Magnesia - PO DAILY PRN CONSTIPATION Methadone HCl 40 mg/ Methadone 50 mg 10/15/17 08:05 10/20/17 06:02 HCl 10 mg PO 10/22/17 08:04 50 mg DAILY@0600 THEA Administration Nicotine 21 mg 10/15/17 10:00 10/20/17 09:59 Nicoderm Patch - TD 21 mg DAILY THEA Administration Paroxetine HCl 20 mg 10/15/17 10:00 10/20/17 09:59 Paxil - PO 20 mg DAILY THEA Administration Multivit/Folic Acid/Iron 1 tab 10/15/17 10:00 10/20/17 09:59 Vitamins (Sjr) - PO 1 tab DAILY THEA Administration Pseudoephedrine/Triprolidine 1 combo 10/14/17 16:01 Actifed - PO TID PRN NASAL CONGESTION Quetiapine Fumarate 50 mg 10/15/17 10:30 10/20/17 09:59 Seroquel - PO 50 mg DAILY THEA Administration Quetiapine Fumarate 100 mg 10/15/17 22:00 10/19/17 21:20 Seroquel - PO 100 mg HS THEA Administration Thiamine HCl 100 mg 10/14/17 22:00 10/19/17 21:20 Vitamin B1 - PO 100 mg HS THEA Administration Current Side Effect: No Lab tests ordered: Yes Lab tests reviewed: Yes Provider note:: Patient complains of experiencing anxiety symptoms almost every day in midafternoon despite being on Medications(Paxil, Seroquel.Vistaril prn). He requests to be ordered some extra doses of Seroquel as needed Total face to face time:: 15 Mental Status Exam - Mental Status Exam Alert and Oriented to: Time, Place, Person Cognitive Function: Fair Patient Appearance: Well Groomed Mood: Anxious Affect: Appropriate Patient Behavior: Cooperative Speech Pattern: Clear Voice Loudness: Normal Thought Process: Intact, Goal Oriented Thought Disorder: Not Present Hallucinations: Denies Suicidal Ideation: Denies Homicidal Ideation: Denies Insight/Judgement: Fair Sleep: Fair Appetite: Good Muscle strength/Tone: Normal Gait/Station: Normal Psychiatric Treatment Plan - Problem List (1) Alcohol dependence Current Visit: Yes (2) Cocaine dependence Current Visit: No Qualifiers: (3) Opioid dependence on agonist therapy Current Visit: Yes (4) Nicotine dependence Current Visit: No Qualifiers: Nicotine product type: cigarettes Substance use status: uncomplicated Qualified Code(s): F17.210 - Nicotine dependence, cigarettes, uncomplicated (5) Bipolar disorder Current Visit: No Comment: self reports. (6) PTSD (post-traumatic stress disorder) Current Visit: Yes (7) Substance-induced anxiety disorder Current Visit: Yes (8) Substance-induced sleep disorder Current Visit: Yes (9) Hepatitis C carrier Current Visit: No (10) PPD positive Current Visit: Yes Initial treatment plan: 1) Start Seroquel 25 mg po Q 4hrs prn for anxiety. 2) Monitor progress
[2017-10-20] MEDS: QUEtiapine FUMARATE 25 MG TABLET (FP) PO PRN (14:45)
[2017-10-20] MEDS: QUEtiapine FUMARATE 100 MG TABLET (FP) PO SCH (21:17)
[2017-10-20] MEDS: THIAMINE HCL 100 MG TABLET (FP) PO SCH (21:17)
[2017-10-21] MEDS ORDERED: METHADONE HCL 10 MG TABLET ONE (04:21)
[2017-10-21] MEDS ORDERED: METHADONE HCL 40 MG DISPERSABLE TABLET ONE (04:21)
[2017-10-21] MEDS: METHADONE 40 MG, METHADONE 10 MG PO SCH (06:02)
[2017-10-21] MEDS: QUEtiapine FUMARATE 25 MG TABLET (FP) PO PRN ×2 (06:02→10:50)
[2017-10-21] MEDS: hydrOXYzine PAMOATE 50 MG CAPSULE (FP) PO PRN (08:07)
[2017-10-21] MEDS: NICOTINE 21 MG/24 HOURS TOPICAL PATCH TD SCH (10:04)
[2017-10-21] MEDS: QUEtiapine FUMARATE 50 MG TABLET PO SCH (10:04)
[2017-10-21] MEDS: PARoxetine HCL 20 MG TABLET (FP) PO SCH (10:04)
[2017-10-21] MEDS: PRENATAL VITAMINS W/ FOLIC ACID TABLET (FP) PO SCH (10:04)
[2017-10-21] MEDS: THIAMINE HCL 100 MG TABLET (FP) PO SCH (21:12)
[2017-10-21] MEDS: QUEtiapine FUMARATE 100 MG TABLET (FP) PO SCH (21:12)
[2017-10-22] MEDS: hydrOXYzine PAMOATE 50 MG CAPSULE (FP) PO PRN ×3 (03:10→21:22)
[2017-10-22] MEDS ORDERED: METHADONE HCL 40 MG DISPERSABLE TABLET ONE (04:08)
[2017-10-22] MEDS ORDERED: METHADONE HCL 10 MG TABLET ONE (04:08)
[2017-10-22] MEDS: METHADONE 40 MG, METHADONE 10 MG PO SCH (05:53)
[2017-10-22] MEDS: QUEtiapine FUMARATE 25 MG TABLET (FP) PO PRN (05:54)
[2017-10-22] MEDS ORDERED: METHADONE 40 MG, METHADONE 10 MG PO SCH (06:00)
[2017-10-22] MEDS: NICOTINE 21 MG/24 HOURS TOPICAL PATCH TD SCH (10:07)
[2017-10-22] MEDS: PARoxetine HCL 20 MG TABLET (FP) PO SCH (10:07)
[2017-10-22] MEDS: QUEtiapine FUMARATE 50 MG TABLET PO SCH (10:07)
[2017-10-22] MEDS: PRENATAL VITAMINS W/ FOLIC ACID TABLET (FP) PO SCH (10:08)
[2017-10-22] MEDS: THIAMINE HCL 100 MG TABLET (FP) PO SCH (21:22)
[2017-10-22] MEDS: QUEtiapine FUMARATE 100 MG TABLET (FP) PO SCH (21:22)
[2017-10-23] MEDS ORDERED: METHADONE HCL 10 MG TABLET ONE (04:08)
[2017-10-23] MEDS ORDERED: METHADONE HCL 40 MG DISPERSABLE TABLET ONE (04:08)
[2017-10-23] MEDS: METHADONE 40 MG, METHADONE 10 MG PO SCH (06:01)
[2017-10-23] MEDS: hydrOXYzine PAMOATE 50 MG CAPSULE (FP) PO PRN ×2 (06:02→09:56)
--- NOTE | 2017-10-23 09:07 | PN ---
S Progress Note (SOAP) Subjective: requesting switch from methadone to suboxone Objective: 10/23/17 09:06 Vital Signs - 24 hr 10/23/17 10/23/17 10/23/17 00:30 03:30 06:48 Temperature 97.6 F Pulse Rate 71 Respiratory 18 18 18 Rate Blood Pressure 106/64 labs reviewedd Assessment: 10/23/17 09:06 oud - on methadone 50mg, no willing to go down to 40mg x2 weeks prior to induction
[2017-10-23] MEDS: PARoxetine HCL 20 MG TABLET (FP) PO SCH (09:56)
[2017-10-23] MEDS: NICOTINE 21 MG/24 HOURS TOPICAL PATCH TD SCH (09:56)
[2017-10-23] MEDS: PRENATAL VITAMINS W/ FOLIC ACID TABLET (FP) PO SCH (09:56)
[2017-10-23] MEDS: QUEtiapine FUMARATE 50 MG TABLET PO SCH (09:56)
[2017-10-23] MEDS: MAG HYDROX/AL HYDROX/SIMETH 30 ML UNIT-DOSE CUP PO PRN (10:29)
[2017-10-23] MEDS: THIAMINE HCL 100 MG TABLET (FP) PO SCH (21:39)
[2017-10-23] MEDS: QUEtiapine FUMARATE 100 MG TABLET (FP) PO SCH (21:39)
[2017-10-24] MEDS ORDERED: METHADONE HCL 40 MG DISPERSABLE TABLET ONE (04:16)
[2017-10-24] MEDS ORDERED: METHADONE HCL 10 MG TABLET ONE (04:16)
[2017-10-24] MEDS: METHADONE 40 MG, METHADONE 10 MG PO SCH (06:21)
[2017-10-24] MEDS: hydrOXYzine PAMOATE 50 MG CAPSULE (FP) PO PRN ×2 (06:22→21:23)
[2017-10-24] MEDS: PARoxetine HCL 20 MG TABLET (FP) PO SCH (09:53)
[2017-10-24] MEDS: QUEtiapine FUMARATE 50 MG TABLET PO SCH (09:53)
[2017-10-24] MEDS: PRENATAL VITAMINS W/ FOLIC ACID TABLET (FP) PO SCH (09:54)
[2017-10-24] MEDS: NICOTINE 21 MG/24 HOURS TOPICAL PATCH TD SCH (09:54)
[2017-10-24] MEDS: QUEtiapine FUMARATE 25 MG TABLET (FP) PO PRN (11:10)
[2017-10-24] MEDS: QUEtiapine FUMARATE 100 MG TABLET (FP) PO SCH (21:23)
[2017-10-24] MEDS: THIAMINE HCL 100 MG TABLET (FP) PO SCH (21:23)
[2017-10-25] MEDS ORDERED: METHADONE HCL 40 MG DISPERSABLE TABLET ONE (04:54)
[2017-10-25] MEDS ORDERED: METHADONE HCL 10 MG TABLET ONE (04:54)
[2017-10-25] MEDS: METHADONE 40 MG, METHADONE 10 MG PO SCH (06:08)
[2017-10-25] MEDS: hydrOXYzine PAMOATE 50 MG CAPSULE (FP) PO PRN ×2 (06:09→21:11)
[2017-10-25] MEDS: PRENATAL VITAMINS W/ FOLIC ACID TABLET (FP) PO SCH (09:12)
[2017-10-25] MEDS: NICOTINE 21 MG/24 HOURS TOPICAL PATCH TD SCH (09:12)
[2017-10-25] MEDS: PARoxetine HCL 20 MG TABLET (FP) PO SCH (09:12)
[2017-10-25] MEDS: QUEtiapine FUMARATE 50 MG TABLET PO SCH (09:12)
[2017-10-25] MEDS: THIAMINE HCL 100 MG TABLET (FP) PO SCH (21:11)
[2017-10-25] MEDS: QUEtiapine FUMARATE 100 MG TABLET (FP) PO SCH (21:11)
[2017-10-26] MEDS ORDERED: METHADONE HCL 40 MG DISPERSABLE TABLET ONE (05:04)
[2017-10-26] MEDS ORDERED: METHADONE HCL 10 MG TABLET ONE (05:04)
[2017-10-26] MEDS: METHADONE 40 MG, METHADONE 10 MG PO SCH (06:18)
[2017-10-26] MEDS: hydrOXYzine PAMOATE 50 MG CAPSULE (FP) PO PRN ×2 (06:19→11:33)
[2017-10-26] MEDS: PARoxetine HCL 20 MG TABLET (FP) PO SCH (09:39)
[2017-10-26] MEDS: QUEtiapine FUMARATE 50 MG TABLET PO SCH (09:39)
[2017-10-26] MEDS: NICOTINE 21 MG/24 HOURS TOPICAL PATCH TD SCH (09:39)
[2017-10-26] MEDS: PRENATAL VITAMINS W/ FOLIC ACID TABLET (FP) PO SCH (09:39)
[2017-10-26] MEDS: QUEtiapine FUMARATE 100 MG TABLET (FP) PO SCH (21:16)
[2017-10-26] MEDS: THIAMINE HCL 100 MG TABLET (FP) PO SCH (21:17)
[2017-10-27] MEDS ORDERED: METHADONE HCL 10 MG TABLET ONE (06:11)
[2017-10-27] MEDS: METHADONE 40 MG, METHADONE 10 MG PO SCH (06:12)
[2017-10-27] MEDS ORDERED: METHADONE HCL 40 MG DISPERSABLE TABLET ONE (06:12)
[2017-10-27] MEDS: PARoxetine HCL 20 MG TABLET (FP) PO SCH (09:42)
[2017-10-27] MEDS: NICOTINE 21 MG/24 HOURS TOPICAL PATCH TD SCH (09:42)
[2017-10-27] MEDS: QUEtiapine FUMARATE 50 MG TABLET PO SCH (09:42)
[2017-10-27] MEDS: PRENATAL VITAMINS W/ FOLIC ACID TABLET (FP) PO SCH (09:43)
[2017-10-27] MEDS: THIAMINE HCL 100 MG TABLET (FP) PO SCH (21:18)
[2017-10-27] MEDS: hydrOXYzine PAMOATE 50 MG CAPSULE (FP) PO PRN (21:18)
[2017-10-27] MEDS: QUEtiapine FUMARATE 100 MG TABLET (FP) PO SCH (21:18)
[2017-10-28] MEDS ORDERED: METHADONE HCL 10 MG TABLET ONE (04:27)
[2017-10-28] MEDS ORDERED: METHADONE HCL 40 MG DISPERSABLE TABLET ONE (04:28)
[2017-10-28] MEDS: METHADONE 40 MG, METHADONE 10 MG PO SCH (06:21)
[2017-10-28] MEDS: NICOTINE 21 MG/24 HOURS TOPICAL PATCH TD SCH (09:51)
[2017-10-28] MEDS: hydrOXYzine PAMOATE 50 MG CAPSULE (FP) PO PRN ×2 (09:52→21:17)
[2017-10-28] MEDS: PRENATAL VITAMINS W/ FOLIC ACID TABLET (FP) PO SCH (09:53)
[2017-10-28] MEDS: QUEtiapine FUMARATE 50 MG TABLET PO SCH (09:53)
[2017-10-28] MEDS: PARoxetine HCL 20 MG TABLET (FP) PO SCH (09:53)
[2017-10-28] MEDS: THIAMINE HCL 100 MG TABLET (FP) PO SCH (21:16)
[2017-10-28] MEDS: QUEtiapine FUMARATE 100 MG TABLET (FP) PO SCH (21:17)
[2017-10-29] MEDS ORDERED: METHADONE HCL 10 MG TABLET ONE (04:04)
[2017-10-29] MEDS ORDERED: METHADONE HCL 40 MG DISPERSABLE TABLET ONE (04:05)
[2017-10-29] MEDS: METHADONE 40 MG, METHADONE 10 MG PO SCH (06:09)
[2017-10-29] MEDS: QUEtiapine FUMARATE 50 MG TABLET PO SCH (09:44)
[2017-10-29] MEDS: PRENATAL VITAMINS W/ FOLIC ACID TABLET (FP) PO SCH (09:44)
[2017-10-29] MEDS: PARoxetine HCL 20 MG TABLET (FP) PO SCH (09:44)
[2017-10-29] MEDS: NICOTINE 21 MG/24 HOURS TOPICAL PATCH TD SCH (09:45)
[2017-10-29] MEDS: QUEtiapine FUMARATE 100 MG TABLET (FP) PO SCH (21:15)
[2017-10-29] MEDS: THIAMINE HCL 100 MG TABLET (FP) PO SCH (21:15)
[2017-10-29] MEDS: hydrOXYzine PAMOATE 50 MG CAPSULE (FP) PO PRN (21:15)
[2017-10-30] MEDS ORDERED: METHADONE HCL 10 MG TABLET ONE (03:13)
[2017-10-30] MEDS ORDERED: METHADONE HCL 40 MG DISPERSABLE TABLET ONE (03:13)
[2017-10-30] MEDS: METHADONE 40 MG, METHADONE 10 MG PO SCH (06:00)
[2017-10-30] MEDS: NICOTINE 21 MG/24 HOURS TOPICAL PATCH TD SCH (09:54)
[2017-10-30] MEDS: QUEtiapine FUMARATE 50 MG TABLET PO SCH (09:54)
[2017-10-30] MEDS: PRENATAL VITAMINS W/ FOLIC ACID TABLET (FP) PO SCH (09:54)
[2017-10-30] MEDS: PARoxetine HCL 20 MG TABLET (FP) PO SCH (09:54)
[2017-10-30] MEDS: QUEtiapine FUMARATE 100 MG TABLET (FP) PO SCH (22:04)
[2017-10-30] MEDS: THIAMINE HCL 100 MG TABLET (FP) PO SCH (22:05)
[2017-10-31] MEDS ORDERED: METHADONE HCL 10 MG TABLET ONE (04:31)
[2017-10-31] MEDS ORDERED: METHADONE HCL 40 MG DISPERSABLE TABLET ONE (04:32)
[2017-10-31] MEDS: METHADONE 40 MG, METHADONE 10 MG PO SCH (06:37)
[2017-10-31] MEDS: PRENATAL VITAMINS W/ FOLIC ACID TABLET (FP) PO SCH (10:26)
[2017-10-31] MEDS: PARoxetine HCL 20 MG TABLET (FP) PO SCH (10:26)
[2017-10-31] MEDS: NICOTINE 21 MG/24 HOURS TOPICAL PATCH TD SCH (10:26)
[2017-10-31] MEDS: QUEtiapine FUMARATE 50 MG TABLET PO SCH (10:27)
[2017-10-31] MEDS: QUEtiapine FUMARATE 100 MG TABLET (FP) PO SCH (21:59)
[2017-10-31] MEDS: THIAMINE HCL 100 MG TABLET (FP) PO SCH (21:59)
[2017-11-01] MEDS ORDERED: METHADONE HCL 10 MG TABLET ONE (04:23)
[2017-11-01] MEDS ORDERED: METHADONE HCL 40 MG DISPERSABLE TABLET ONE (04:23)
[2017-11-01] MEDS: METHADONE 40 MG, METHADONE 10 MG PO SCH (06:06)
[2017-11-01] MEDS: PARoxetine HCL 20 MG TABLET (FP) PO SCH (10:05)
[2017-11-01] MEDS: QUEtiapine FUMARATE 50 MG TABLET PO SCH (10:05)
[2017-11-01] MEDS: PRENATAL VITAMINS W/ FOLIC ACID TABLET (FP) PO SCH (10:05)
[2017-11-01] MEDS: NICOTINE 21 MG/24 HOURS TOPICAL PATCH TD SCH (10:05)
[2017-11-01] MEDS: QUEtiapine FUMARATE 100 MG TABLET (FP) PO SCH (22:03)
[2017-11-01] MEDS: THIAMINE HCL 100 MG TABLET (FP) PO SCH (22:03)
[2017-11-02] MEDS ORDERED: METHADONE HCL 40 MG DISPERSABLE TABLET ONE (04:32)
[2017-11-02] MEDS ORDERED: METHADONE HCL 10 MG TABLET ONE (04:32)
[2017-11-02] MEDS: METHADONE 40 MG, METHADONE 10 MG PO SCH (06:25)
[2017-11-02] MEDS: PRENATAL VITAMINS W/ FOLIC ACID TABLET (FP) PO SCH (10:25)
[2017-11-02] MEDS: PARoxetine HCL 20 MG TABLET (FP) PO SCH (10:25)
[2017-11-02] MEDS: NICOTINE 21 MG/24 HOURS TOPICAL PATCH TD SCH (10:25)
[2017-11-02] MEDS: QUEtiapine FUMARATE 50 MG TABLET PO SCH (10:26)
[2017-11-02] MEDS: QUEtiapine FUMARATE 100 MG TABLET (FP) PO SCH (22:10)
[2017-11-02] MEDS: THIAMINE HCL 100 MG TABLET (FP) PO SCH (22:11)
[2017-11-03] MEDS ORDERED: METHADONE HCL 10 MG TABLET ONE (03:17)
[2017-11-03] MEDS ORDERED: METHADONE HCL 40 MG DISPERSABLE TABLET ONE (03:17)
[2017-11-03] MEDS: METHADONE 40 MG, METHADONE 10 MG PO SCH (06:25)
[2017-11-03] MEDS: PARoxetine HCL 20 MG TABLET (FP) PO SCH (10:18)
[2017-11-03] MEDS: PRENATAL VITAMINS W/ FOLIC ACID TABLET (FP) PO SCH (10:18)
[2017-11-03] MEDS: QUEtiapine FUMARATE 50 MG TABLET PO SCH (10:19)
[2017-11-03] MEDS: NICOTINE 21 MG/24 HOURS TOPICAL PATCH TD SCH (10:19)
[2017-11-03] MEDS: QUEtiapine FUMARATE 100 MG TABLET (FP) PO SCH (22:02)
[2017-11-03] MEDS: THIAMINE HCL 100 MG TABLET (FP) PO SCH (22:02)
[2017-11-04] MEDS ORDERED: METHADONE HCL 40 MG DISPERSABLE TABLET ONE (04:07)
[2017-11-04] MEDS ORDERED: METHADONE HCL 10 MG TABLET ONE (04:07)
[2017-11-04] MEDS: METHADONE 40 MG, METHADONE 10 MG PO SCH (06:21)
[2017-11-04] MEDS: NICOTINE 21 MG/24 HOURS TOPICAL PATCH TD SCH (10:42)
[2017-11-04] MEDS: PARoxetine HCL 20 MG TABLET (FP) PO SCH (10:42)
[2017-11-04] MEDS: PRENATAL VITAMINS W/ FOLIC ACID TABLET (FP) PO SCH (10:43)
[2017-11-04] MEDS: QUEtiapine FUMARATE 50 MG TABLET PO SCH (10:43)
[2017-11-04] MEDS: THIAMINE HCL 100 MG TABLET (FP) PO SCH (22:12)
[2017-11-04] MEDS: QUEtiapine FUMARATE 100 MG TABLET (FP) PO SCH (22:12)
[2017-11-05] MEDS ORDERED: METHADONE HCL 10 MG TABLET ONE (04:15)
[2017-11-05] MEDS ORDERED: METHADONE HCL 40 MG DISPERSABLE TABLET ONE (04:15)
[2017-11-05] MEDS: METHADONE 40 MG, METHADONE 10 MG PO SCH (06:11)
[2017-11-05] MEDS: QUEtiapine FUMARATE 50 MG TABLET PO SCH (10:29)
[2017-11-05] MEDS: PARoxetine HCL 20 MG TABLET (FP) PO SCH (10:29)
[2017-11-05] MEDS: NICOTINE 21 MG/24 HOURS TOPICAL PATCH TD SCH (10:29)
[2017-11-05] MEDS: PRENATAL VITAMINS W/ FOLIC ACID TABLET (FP) PO SCH (10:29)
[2017-11-05] MEDS: QUEtiapine FUMARATE 100 MG TABLET (FP) PO SCH (22:04)
[2017-11-05] MEDS: THIAMINE HCL 100 MG TABLET (FP) PO SCH (22:04)
[2017-11-06] MEDS ORDERED: METHADONE HCL 40 MG DISPERSABLE TABLET ONE (04:40)
[2017-11-06] MEDS ORDERED: METHADONE HCL 10 MG TABLET ONE (04:40)
[2017-11-06] MEDS: METHADONE 40 MG, METHADONE 10 MG PO SCH (06:32)
[2017-11-06] MEDS: PARoxetine HCL 20 MG TABLET (FP) PO SCH (10:05)
[2017-11-06] MEDS: QUEtiapine FUMARATE 50 MG TABLET PO SCH (10:06)
[2017-11-06] MEDS: PRENATAL VITAMINS W/ FOLIC ACID TABLET (FP) PO SCH (10:06)
[2017-11-06] MEDS: NICOTINE 21 MG/24 HOURS TOPICAL PATCH TD SCH (10:06)
[2017-11-06] MEDS: THIAMINE HCL 100 MG TABLET (FP) PO SCH (22:08)
[2017-11-06] MEDS: QUEtiapine FUMARATE 100 MG TABLET (FP) PO SCH (22:08)
[2017-11-07] MEDS ORDERED: METHADONE HCL 40 MG DISPERSABLE TABLET ONE (03:20)
[2017-11-07] MEDS ORDERED: METHADONE HCL 10 MG TABLET ONE (03:20)
[2017-11-07] MEDS: METHADONE 40 MG, METHADONE 10 MG PO SCH (06:15)
[2017-11-07] MEDS: NICOTINE 21 MG/24 HOURS TOPICAL PATCH TD SCH (10:29)
[2017-11-07] MEDS: PRENATAL VITAMINS W/ FOLIC ACID TABLET (FP) PO SCH (10:29)
[2017-11-07] MEDS: PARoxetine HCL 20 MG TABLET (FP) PO SCH (10:29)
[2017-11-07] MEDS: QUEtiapine FUMARATE 50 MG TABLET PO SCH (10:32)
--- NOTE | 2017-11-07 12:53 | PN ---
[facility] Progress Note Note: cxr 11/07/17- neg.
[2017-11-07] MEDS: QUEtiapine FUMARATE 100 MG TABLET (FP) PO SCH (23:18)
[2017-11-07] MEDS: THIAMINE HCL 100 MG TABLET (FP) PO SCH (23:18)
[2017-11-08] MEDS ORDERED: METHADONE HCL 10 MG TABLET ONE (03:15)
[2017-11-08] MEDS ORDERED: METHADONE HCL 40 MG DISPERSABLE TABLET ONE (03:15)
[2017-11-08] MEDS: METHADONE 40 MG, METHADONE 10 MG PO SCH (06:37)
[2017-11-08] MEDS: PARoxetine HCL 20 MG TABLET (FP) PO SCH (10:19)
[2017-11-08] MEDS: NICOTINE 21 MG/24 HOURS TOPICAL PATCH TD SCH (10:19)
[2017-11-08] MEDS: QUEtiapine FUMARATE 50 MG TABLET PO SCH (10:19)
[2017-11-08] MEDS: PRENATAL VITAMINS W/ FOLIC ACID TABLET (FP) PO SCH (10:19)
[2017-11-08] MEDS: QUEtiapine FUMARATE 100 MG TABLET (FP) PO SCH (22:14)
[2017-11-08] MEDS: THIAMINE HCL 100 MG TABLET (FP) PO SCH (22:14)
[2017-11-09] MEDS ORDERED: METHADONE HCL 10 MG TABLET ONE (03:12)
[2017-11-09] MEDS ORDERED: METHADONE HCL 40 MG DISPERSABLE TABLET ONE (03:12)
[2017-11-09] MEDS: METHADONE 40 MG, METHADONE 10 MG PO SCH (06:36)
[2017-11-09] MEDS: PARoxetine HCL 20 MG TABLET (FP) PO SCH (10:11)
[2017-11-09] MEDS: QUEtiapine FUMARATE 50 MG TABLET PO SCH (10:11)
[2017-11-09] MEDS: NICOTINE 21 MG/24 HOURS TOPICAL PATCH TD SCH (10:11)
[2017-11-09] MEDS: PRENATAL VITAMINS W/ FOLIC ACID TABLET (FP) PO SCH (10:11)
--- NOTE | 2017-11-09 14:24 | PN ---
Psychiatric Progress Note Vital Signs: Vital Signs Period Temp Pulse Resp BP Sys/Moore Pulse Ox Last 24 Hr 97.6 F 65 18-18 125/74 Date of Session: 11/09/17 Chief Complaint:: Discharge Note HPI: Patient addressing Alcohol and Cocaine Dependence comorbid with Opoid Dependence on Agonist Therapy, Nicotine Dependence, Bipolar Disorder, Posttraumatic Stress Disorder and Substance-Induced Anxiety Disorder ROS: Hep C, PPD+ were medically managed Current Medications: Active Medications Generic Name Dose Route Start Last Admin Trade Name Freq PRN Reason Stop Dose Admin Acetaminophen 650 mg 10/14/17 16:01 10/22/17 11:17 Tylenol - PO 650 mg Q4H PRN Administration FEVER Al Hydroxide/Mg Hydroxide 30 ml 10/14/17 16:01 10/23/17 10:29 Mylanta Oral Suspension - PO 30 ml Q6H PRN Administration DYSPEPSIA Eucalyptus/Menthol/Phenol/Sorbitol 1 each 10/14/17 16:01 Cepastat Lozenge - MM Q4H PRN SORE THROAT Guaifenesin 10 ml 10/14/17 16:01 Robitussin Dm - PO Q6H PRN COUGH Hydroxyzine Pamoate 50 mg 10/14/17 16:01 10/29/17 21:15 Vistaril - PO 50 mg Q4H PRN Administration AGITATION Ibuprofen 400 mg 10/14/17 16:01 Motrin - PO Q6H PRN Pain Level 4-6 Loperamide HCl 4 mg 10/14/17 16:01 Imodium - PO Q6H PRN DIARRHEA Magnesium Citrate 300 ml 10/14/17 16:01 Citroma - PO Q48H PRN CONSTIPATION Magnesium Hydroxide 30 ml 10/14/17 16:01 10/29/17 10:28 Milk Of Magnesia - PO 30 ml DAILY PRN Administration CONSTIPATION Methadone HCl 40 mg/ Methadone 50 mg 11/05/17 06:00 11/09/17 06:36 HCl 10 mg PO 11/11/17 05:59 50 mg DAILY@0600 THEA Administration Nicotine 21 mg 10/15/17 10:00 11/09/17 10:11 Nicoderm Patch - TD 21 mg DAILY THEA Administration Paroxetine HCl 20 mg 10/15/17 10:00 11/09/17 10:11 Paxil - PO 20 mg DAILY THEA Administration Multivit/Folic Acid/Iron 1 tab 10/15/17 10:00 11/09/17 10:11 Vitamins (Sjr) - PO 1 tab DAILY THEA Administration Pseudoephedrine/Triprolidine 1 combo 10/14/17 16:01 Actifed - PO TID PRN NASAL CONGESTION Quetiapine Fumarate 50 mg 10/15/17 10:30 11/09/17 10:11 Seroquel - PO Not Given DAILY THEA Quetiapine Fumarate 100 mg 10/15/17 22:00 11/08/17 22:14 Seroquel - PO Not Given HS THEA Quetiapine Fumarate 25 mg 10/20/17 13:46 10/24/17 11:10 Seroquel - PO 25 mg Q4H PRN Administration ANXIETY Thiamine HCl 100 mg 10/14/17 22:00 11/08/17 22:14 Vitamin B1 - PO Not Given HS THEA Current Side Effect: No Lab tests ordered: Yes Lab tests reviewed: Yes Provider note:: Patient will complete this program on 11/10/17. He has met his treatment goals and will continue to address his issues in outpatient treatment at [facility]. Told field underwriter that from his participation in this program, he has learned the importance of establishing a sober support network in order to maintain abstinence. He responded well to Paxil 20 mg po daily and Seroquel 50 mg daily & 100 mg HS. Scripts for these medications [facility] at [address] [place] [address]. He is stable for discharge on 11/10/17 Total face to face time:: 35 Mental Status Exam - Mental Status Exam Alert and Oriented to: Time, Place, Person Cognitive Function: Fair Patient Appearance: Well Groomed Mood: Hopeful, Euthymic Affect: Appropriate Patient Behavior: Cooperative Speech Pattern: Clear Voice Loudness: Normal Thought Process: Intact, Goal Oriented Thought Disorder: Not Present Hallucinations: Denies Suicidal Ideation: Denies Homicidal Ideation: Denies Insight/Judgement: Fair Sleep: Fair Appetite: Good Muscle strength/Tone: Normal Gait/Station: Normal Psychiatric Treatment Plan - Problem List (1) Alcohol dependence Current Visit: Yes (2) Cocaine dependence Current Visit: No Qualifiers: (3) Opioid dependence on agonist therapy Current Visit: Yes (4) Nicotine dependence Current Visit: No Qualifiers: Nicotine product type: cigarettes Substance use status: uncomplicated Qualified Code(s): F17.210 - Nicotine dependence, cigarettes, uncomplicated (5) Bipolar disorder Current Visit: No Comment: self reports. (6) PTSD (post-traumatic stress disorder) Current Visit: Yes (7) Substance-induced anxiety disorder Current Visit: Yes (8) Substance-induced sleep disorder Current Visit: Yes (9) Hepatitis C carrier Current Visit: No (10) PPD positive Current Visit: Yes Initial treatment plan: Patient will be discharged tomorrow and referred to [facility] for outpatient treatment
[2017-11-09] MEDS: THIAMINE HCL 100 MG TABLET (FP) PO SCH (21:53)
[2017-11-09] MEDS: QUEtiapine FUMARATE 100 MG TABLET (FP) PO SCH (21:53)
[2017-11-10] MEDS ORDERED: METHADONE HCL 10 MG TABLET ONE (04:14)
[2017-11-10] MEDS ORDERED: METHADONE HCL 40 MG DISPERSABLE TABLET ONE (04:14)
[2017-11-10] MEDS: METHADONE 40 MG, METHADONE 10 MG PO SCH (06:14)
[2017-11-10 07:05] VITALS: BP 126/78; PULSE 63; TEMP 97.9
--- NOTE | 2017-11-10 07:50 | PN ---
[facility] Progress Note Note: METHADONE MAINTENANCE ORDER RENEWED
[2017-11-10] MEDS: PRENATAL VITAMINS W/ FOLIC ACID TABLET (FP) PO SCH (09:25)
[2017-11-10] MEDS: NICOTINE 21 MG/24 HOURS TOPICAL PATCH TD SCH (09:26)
[2017-11-10] MEDS: PARoxetine HCL 20 MG TABLET (FP) PO SCH (09:26)
[2017-11-10] MEDS: QUEtiapine FUMARATE 50 MG TABLET PO SCH (09:26)
[2017-11-10] MEDS ORDERED: PT OWN MED DRAWER 7, Y5N ONE (09:31)
[2017-11-11] MEDS ORDERED: METHADONE 40 MG, METHADONE 10 MG PO SCH (06:00)
== END 2017-11-10 10:00 | disposition home or self-care (01) | DRG 772 ==
LOC: YASAS 14:52 → Y3W 14:53
PROVIDERS: ADMIT Psychiatry & Neurology Psychiatry; ATTEND Psychiatry & Neurology Psychiatry
PROC: HZ42ZZZ Group Counseling for Substance Abuse Treatment, Cognitive-Behavioral (ICD-10-PCS; principal; 2017-10-14)
DX: F10.20 Alcohol dependence, uncomplicated (principal); F11.20 Opioid dependence, uncomplicated; F14.20 Cocaine dependence, uncomplicated; F17.210 Nicotine dependence, cigarettes, uncomplicated; F31.9 Bipolar disorder, unspecified; F43.10 Post-traumatic stress disorder, unspecified; F19.280 Other psychoactive substance dependence with psychoactive substance-induced anxiety disorder; F19.282 Other psychoactive substance dependence with psychoactive substance-induced sleep disorder; F90.9 Attention-deficit hyperactivity disorder, unspecified type; B18.2 Chronic viral hepatitis C; R76.11 Nonspecific reaction to tuberculin skin test without active tuberculosis
CPT/HCPCS: 71046-TC-FY

== ENCOUNTER 2017-12-09 09:43 | Inpatient (IN) | payer OTHER ==
[2017-12-09 10:17] VITALS: BMI 31.4
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
[2017-12-09] MEDS ORDERED: MAGNESIUM HYDROX 2400MG/30ML ORAL SUSPENSION 30 ML CUP PO PRN (12:42)
[2017-12-09] MEDS ORDERED: LOPERAMIDE HCL 2 MG CAPSULE PO PRN (12:42)
[2017-12-09] MEDS ORDERED: MAG HYDROX/AL HYDROX/SIMETH 30 ML UNIT-DOSE CUP PO PRN (12:42)
[2017-12-09] MEDS ORDERED: P-EPHED 60MG/TRIPROLIDI 2.5MG TABLET PO PRN (12:42)
[2017-12-09] MEDS ORDERED: ACETAMINOPHEN 325 MG TABLET (FP) PO PRN (12:42)
[2017-12-09] MEDS ORDERED: guaiFENesin/D-METHORPHAN HB 10 ML UNIT-DOSE CUPS PO PRN (12:42)
[2017-12-09] MEDS ORDERED: MENTHOL/PHENOL 1 EACH UD MM PRN (12:42)
[2017-12-09] MEDS ORDERED: IBUPROFEN 400 MG TABLET (FP) PO PRN (12:42)
[2017-12-09] MEDS ORDERED: MAGNESIUM CITRATE 300 ML BOTTLE PO PRN (12:42)
[2017-12-09] MEDS: NICOTINE 21 MG/24 HOURS TOPICAL PATCH TD SCH (13:56)
[2017-12-09] MEDS ORDERED: diazePAM 5 MG TABLET PO ONE (14:00)
--- NOTE | 2017-12-09 14:40 | EKG ---
Test Reason : Blood Pressure : / mmHG Vent. Rate : 063 BPM Atrial Rate : 063 BPM P-R Int : 142 ms QRS Dur : 086 ms QT Int : 454 ms P-R-T Axes : 037 055 045 degrees QTc Int : 464 ms NORMAL SINUS RHYTHM NORMAL ECG WHEN COMPARED WITH ECG OF 10-OCT-2017 09:22, NO SIGNIFICANT CHANGE WAS FOUND Confirmed by MD MCGEE PENG ([id number]) on 12/09/2017 2:40:12 PM Referred By: Confirmed By:CASPER MCGEE MD
--- NOTE | 2017-12-09 16:44 | CONSULT ---
[facility] Psychiatric Consult - Data Date of interview: 12/09/17 Admission source: [facility] Identifying data: Readmission to [facility] for this 42 y/o male seeking detox treatment on for cocaine,xanax,cannabis,opioid and alcohol dependence.Patient is single,a father of two,homeless,unemployed and reportedly deprived of any source of income. Substance Abuse History: Confirmed by patient in this interview.Details in current [facility] report : Smoking history: Current every day smoker. Have you smoked in the past 12 months: Yes. Aproximately how many cigarettes per day: 20. Cigars Per Day: 0. Hx Chewing Tobacco Use: No. Initiated information on smoking cessation: Yes. 'Breaking Loose' booklet given: 12/09/17. - Substance & Tx. History. Hx Alcohol Use: Yes. Hx Substance Use: Yes. Substance Use Type : Alcohol, Tranquilizers. Hx Substance Use Treatment: Yes ([facility] 10/14/17 TO 11/10/17). - Substances Abused. Alprazolam (Xanax) . Route: Oral. Frequency: Daily. Amount used: 5 STICKS (10MG ). Age of first use: 23. Date of Last Use: 12/08/17. Alcohol. Route: Oral. Frequency: Daily. Amount used: 1 [place] DAILY. Age of first use: 17. Date of Last Use: 12/08/17. Marijuana/Hashish. Route: Smoking. Frequency: 1-3 times last 30 days. Amount used: 20$. Age of first use: 17. Date of Last Use: 12/04/17. Cocaine. Route: Inhalation. Frequency: 1-3 times last 30 days. Amount used: 50$. Age of first use: 23. Date of Last Use: 12/05/17 Medical History: Hepatitis C and a distant history of surgery for laceration of left chest wall (2009). Psychiatric History: Patient admits to a history of multiple psychiatric hospitalizations ([facility]).Onset of psychiatric disturbances : chidhood (age 10).Diagnosed with ADHD and treated with psychostimulants.Diagnosis was revised to Bipolar Disorder (age 23).Mr Eubanks is known to [facility] where he is on methadoine maintenance (70 mg/day).He is also connected with a psychiatrist at [facility] in the [place].Managed on a regimen of paxil 20 mg/day + seroquel 100 mg/hs and klonopin.Patient endorses a history of chronic non-adherence to medications.Denies history of suicde attempts. Physical/Sexual Abuse/Trauma History: Patient denies. Additional Comment: Urine Drug Screen Results: THC-Marijuana, BURAK-Cocaine, BZO- Benzodiazepines, MTD-Methadone.Noted. Mental Status Exam - Mental Status Exam Alert and Oriented to: Time, Place, Person Cognitive Function: Good Patient Appearance: Well Groomed Mood: Nervous, Withdrawn, Anxious Affect: Mood Congruent, Constricted Patient Behavior: Sedated (mildly sedated but able to maintain a coherent conversation ; fair historian), Fatigued Speech Pattern: Delayed, Slurred Voice Loudness: Normal Thought Process: Goal Oriented Thought Disorder: Not Present Hallucinations: Denies Suicidal Ideation: Denies Homicidal Ideation: Denies Insight/Judgement: Poor Sleep: Fair Appetite: Good Muscle strength/Tone: Normal Gait/Station: Normal (walks from his room to doctor's office) Psychiatric Findings - Problem List ([place] 1, 2,3) (1) Opioid dependence on agonist therapy Current Visit: Yes Status: Acute (2) Opioid dependence with withdrawal Current Visit: Yes Status: Acute (3) Alcohol dependence with uncomplicated withdrawal Current Visit: Yes Status: Acute (4) Cocaine dependence Current Visit: Yes Status: Acute Qualifiers: (5) Cannabis dependence Current Visit: Yes Status: Acute (6) Nicotine dependence Current Visit: Yes Status: Acute Qualifiers: Nicotine product type: cigarettes Substance use status: uncomplicated Qualified Code(s): F17.210 - Nicotine dependence, cigarettes, uncomplicated (7) Bipolar disorder Current Visit: Yes Status: Chronic Comment: self reports. (8) ADHD (attention deficit hyperactivity disorder) Current Visit: Yes Status: Chronic Comment: As per existing records. - Initial Treatment Plan Initial Treatment Plan: Psychoeducation.Records reviewed.Detoxification in progress.Medications : paxil 10 mg po daily + seroquel 50 mg po hs.Side effects/ benefits of both drugs discussed with the patient.Mr Eubanks has insisted to get back on his medications.Observation.
[2017-12-09] MEDS: diazePAM 5 MG TABLET PO PRN (18:10)
[2017-12-09 18:48] LABS: URINE APPEARANCE CLEAR; URINE BILIRUBIN NEGATIVE (<2.0 mg/dL); URINE BLOOD NEGATIVE (NEGATIVE); URINE COLOR YELLOW; URINE GLUCOSE (UA) NEGATIVE (NEGATIVE); URINE KETONE NEGATIVE (NEGATIVE); URINE LEUK ESTERASE NEGATIVE (NEGATIVE); URINE NITRITE NEGATIVE (NEGATIVE); URINE PROTEIN NEGATIVE (NEGATIVE)
[2017-12-09] MEDS ORDERED: MELATONIN 5 MG TABLETS PO PRN (22:00)
[2017-12-09] MEDS: diazePAM 5 MG TABLET PO SCH (23:00)
[2017-12-09] MEDS: THIAMINE HCL 100 MG TABLET (FP) PO SCH (23:00)
[2017-12-09] MEDS: QUEtiapine FUMARATE 50 MG TABLET PO SCH (23:00)
[2017-12-10] MEDS: diazePAM 5 MG TABLET PO PRN ×4 (00:40→17:28)
[2017-12-10] MEDS ORDERED: METHADONE HCL 40 MG DISPERSABLE TABLET ONE (04:41)
[2017-12-10] MEDS ORDERED: METHADONE HCL 10 MG TABLET ONE (04:41)
[2017-12-10] MEDS: diazePAM 5 MG TABLET PO SCH ×3 (05:21→22:19)
[2017-12-10] MEDS: METHADONE 40 MG, METHADONE 30 MG PO SCH (05:21)
[2017-12-10] MEDS ORDERED: METHADONE HCL 10 MG TABLET PO SCH (06:00)
[2017-12-10 09:57] LABS: HEMATOCRIT 34.2 % (35.4-49); HEMOGLOBIN 11.3 GM/dL (11.7-16.9); MCH 28.8 pg (25.7-33.7); MCHC 33.2 g/dl (32.0-35.9); MEAN CELL VOLUME 86.8 fl (80-96); MEAN PLT VOLUME 9.8 fl (7.5-11.1); PLATELET COUNT 149 K/MM3 (134-434); RBC 3.94 M/mm3 (4.00-5.60); RDW 13.6 % (11.9-15.9); WHITE BLOOD COUNT 3.7 K/mm3 (4.0-10.0)
[2017-12-10 10:31] LABS: CHLORIDE 109 mmol/L (98-107); POTASSIUM 4.2 mmol/L (3.5-5.1); SGOT/AST 43 U/L (15-37); SGPT/ALT 52 U/L (12-78); SODIUM 143 mmol/L (136-145)
[2017-12-10 10:40] LABS: ALBUMIN 3.6 g/dl (3.4-5.0); ALK PHOS 63 U/L (45-117); ANION GAP 4 (8-16); BILIRUBIN,TOTAL 0.3 mg/dL (0.2-1.0); BLOOD UREA NITROGEN 16 mg/dL (7-18); CALCIUM 8.4 mg/dL (8.5-10.1); CO2 30 mmol/L (21-32); CREATININE 0.9 mg/dL (0.7-1.3); GLUCOSE,RANDOM 90 mg/dL (74-106); TOT PROT 6.6 g/dl (6.4-8.2)
[2017-12-10] MEDS: PARoxetine HCL 10 MG TABLET (FP) PO SCH (10:59)
[2017-12-10] MEDS: PRENATAL VITAMINS W/ FOLIC ACID TABLET (FP) PO SCH (10:59)
[2017-12-10] MEDS: NICOTINE 21 MG/24 HOURS TOPICAL PATCH TD SCH (11:01)
--- NOTE | 2017-12-10 12:18 | PN ---
[facility] CIWA - CIWA Score Nausea/Vomitin-No Nausea/No Vomiting Muscle Tremors: 4-Moderate,w/Arms Extend Anxiety: 4-Mod. Anxious/Guarded Agitation: 4-Moderately Restless Paroxysmal Sweats: 1-Minimal Palms Moist Orientation: 0-Oriented Tacttile Disturbances: 0-None Auditory Disturbances: 0-None Visual Disturbances: 0-None Headache: 0-None Present CIWA-Ar Total Score: 13 S Progress Note (SOAP) Subjective: ANXIETY,IRRITABILITY, JITTERY-"JUMPY",TREMORS, INTERMITTENT SLEEP Objective: 12/10/17 12:17 Vital Signs Temperature 96.3 F L 12/10/17 09:59 Pulse Rate 75 12/10/17 09:59 Respiratory Rate 20 12/10/17 09:59 Blood Pressure 112/67 12/10/17 09:59 O2 Sat by Pulse Oximetry (%) Laboratory Last Values WBC 3.7 K/mm3 (4.0-10.0) L 12/10/17 06:00 RBC 3.94 M/mm3 (4.00-5.60) L 12/10/17 06:00 Hgb 11.3 GM/dL (11.7-16.9) L D 12/10/17 06:00 Hct 34.2 % (35.4-49) L 12/10/17 06:00 MCV 86.8 fl (80-96) 12/10/17 06:00 MCH 28.8 pg (25.7-33.7) 12/10/17 06:00 MCHC 33.2 g/dl (32.0-35.9) 12/10/17 06:00 RDW 13.6 % (11.9-15.9) 12/10/17 06:00 Plt Count 149 K/MM3 (134-434) D 12/10/17 06:00 MPV 9.8 fl (7.5-11.1) 12/10/17 06:00 Sodium 143 mmol/L (136-145) 12/10/17 06:00 Potassium 4.2 mmol/L (3.5-5.1) 12/10/17 06:00 Chloride 109 mmol/L (98-107) H 12/10/17 06:00 Carbon Dioxide 30 mmol/L (21-32) 12/10/17 06:00 Anion Gap 4 (8-16) L 12/10/17 06:00 BUN 16 mg/dL (7-18) 12/10/17 06:00 Creatinine 0.9 mg/dL (0.7-1.3) 12/10/17 06:00 Creat Clearance w eGFR > 60 (>60) 12/10/17 06:00 Random Glucose 90 mg/dL (74-106) 12/10/17 06:00 Calcium 8.4 mg/dL (8.5-10.1) L 12/10/17 06:00 Total Bilirubin 0.3 mg/dL (0.2-1.0) D 12/10/17 06:00 AST 43 U/L (15-37) H D 12/10/17 06:00 ALT 52 U/L (12-78) D 12/10/17 06:00 Alkaline Phosphatase 63 U/L (45-117) 12/10/17 06:00 Total Protein 6.6 g/dl (6.4-8.2) 12/10/17 06:00 Albumin 3.6 g/dl (3.4-5.0) 12/10/17 06:00 Urine Color Yellow 12/09/17 18:00 Urine Appearance Clear 12/09/17 18:00 Urine pH 5.0 (5.0-8.0) 12/09/17 18:00 Ur Specific [place] 1.020 (1.001-1.035) 12/09/17 18:00 Urine Protein Negative (NEGATIVE) 12/09/17 18:00 Urine Glucose (UA) Negative (NEGATIVE) 12/09/17 18:00 Urine Ketones Negative (NEGATIVE) 12/09/17 18:00 Urine Blood Negative (NEGATIVE) 12/09/17 18:00 Urine Nitrite Negative (NEGATIVE) 12/09/17 18:00 Urine Bilirubin Negative (<2.0 mg/dL) 12/09/17 18:00 Urine Urobilinogen 2.0 mg/dL (0.2-1.0) 12/09/17 18:00 Ur Leukocyte Esterase Negative (NEGATIVE) 12/09/17 18:00 RPR Titer Nonreactive (NONREACTIVE) 12/10/17 06:00 Assessment: 12/10/17 12:17 WITHDRAWAL SX Plan: CONTINUE DETOX INCREASE PO FLUIDS
[2017-12-10] MEDS: QUEtiapine FUMARATE 50 MG TABLET PO SCH (22:19)
[2017-12-10] MEDS: THIAMINE HCL 100 MG TABLET (FP) PO SCH (22:19)
[2017-12-11] MEDS: diazePAM 5 MG TABLET PO PRN ×5 (01:11→23:58)
[2017-12-11] MEDS ORDERED: METHADONE HCL 10 MG TABLET ONE (04:27)
[2017-12-11] MEDS ORDERED: METHADONE HCL 40 MG DISPERSABLE TABLET ONE (04:28)
[2017-12-11] MEDS: METHADONE 40 MG, METHADONE 30 MG PO SCH (05:19)
[2017-12-11] MEDS: hydrOXYzine PAMOATE 50 MG CAPSULE (FP) PO PRN ×2 (09:07→19:40)
[2017-12-11] MEDS: diazePAM 5 MG TABLET PO SCH ×2 (10:41→22:14)
[2017-12-11] MEDS: PARoxetine HCL 10 MG TABLET (FP) PO SCH (10:41)
[2017-12-11] MEDS: PRENATAL VITAMINS W/ FOLIC ACID TABLET (FP) PO SCH (10:41)
[2017-12-11] MEDS: NICOTINE 21 MG/24 HOURS TOPICAL PATCH TD SCH (10:42)
--- NOTE | 2017-12-11 13:09 | PN ---
S CIWA - CIWA Score Nausea/Vomitin-No Nausea/No Vomiting Muscle Tremors: 4-Moderate,w/Arms Extend Anxiety: 5 Agitation: 5 Paroxysmal Sweats: 1-Minimal Palms Moist Orientation: 0-Oriented Tacttile Disturbances: 0-None Auditory Disturbances: 0-None Visual Disturbances: 0-None Headache: 0-None Present CIWA-Ar Total Score: 15 [facility] Progress Note (SOAP) Subjective: IRRITABILITY,RESTLESSNESS,ANXIETY,SWEATS, INTERMITTENT SLEEP. Objective: 12/11/17 13:09 Vital Signs Temperature 96.6 F L 12/11/17 09:31 Pulse Rate 76 12/11/17 09:31 Respiratory Rate 20 12/11/17 09:31 Blood Pressure 107/63 12/11/17 09:31 O2 Sat by Pulse Oximetry (%) Laboratory Last Values WBC 3.7 K/mm3 (4.0-10.0) L 12/10/17 06:00 RBC 3.94 M/mm3 (4.00-5.60) L 12/10/17 06:00 Hgb 11.3 GM/dL (11.7-16.9) L D 12/10/17 06:00 Hct 34.2 % (35.4-49) L 12/10/17 06:00 MCV 86.8 fl (80-96) 12/10/17 06:00 MCH 28.8 pg (25.7-33.7) 12/10/17 06:00 MCHC 33.2 g/dl (32.0-35.9) 12/10/17 06:00 RDW 13.6 % (11.9-15.9) 12/10/17 06:00 Plt Count 149 K/MM3 (134-434) D 12/10/17 06:00 MPV 9.8 fl (7.5-11.1) 12/10/17 06:00 Sodium 143 mmol/L (136-145) 12/10/17 06:00 Potassium 4.2 mmol/L (3.5-5.1) 12/10/17 06:00 Chloride 109 mmol/L (98-107) H 12/10/17 06:00 Carbon Dioxide 30 mmol/L (21-32) 12/10/17 06:00 Anion Gap 4 (8-16) L 12/10/17 06:00 BUN 16 mg/dL (7-18) 12/10/17 06:00 Creatinine 0.9 mg/dL (0.7-1.3) 12/10/17 06:00 Creat Clearance w eGFR > 60 (>60) 12/10/17 06:00 Random Glucose 90 mg/dL (74-106) 12/10/17 06:00 Calcium 8.4 mg/dL (8.5-10.1) L 12/10/17 06:00 Total Bilirubin 0.3 mg/dL (0.2-1.0) D 12/10/17 06:00 AST 43 U/L (15-37) H D 12/10/17 06:00 ALT 52 U/L (12-78) D 12/10/17 06:00 Alkaline Phosphatase 63 U/L (45-117) 12/10/17 06:00 Total Protein 6.6 g/dl (6.4-8.2) 12/10/17 06:00 Albumin 3.6 g/dl (3.4-5.0) 12/10/17 06:00 Urine Color Yellow 12/09/17 18:00 Urine Appearance Clear 12/09/17 18:00 Urine pH 5.0 (5.0-8.0) 12/09/17 18:00 Ur Specific [place] 1.020 (1.001-1.035) 12/09/17 18:00 Urine Protein Negative (NEGATIVE) 12/09/17 18:00 Urine Glucose (UA) Negative (NEGATIVE) 12/09/17 18:00 Urine Ketones Negative (NEGATIVE) 12/09/17 18:00 Urine Blood Negative (NEGATIVE) 12/09/17 18:00 Urine Nitrite Negative (NEGATIVE) 12/09/17 18:00 Urine Bilirubin Negative (<2.0 mg/dL) 12/09/17 18:00 Urine Urobilinogen 2.0 mg/dL (0.2-1.0) 12/09/17 18:00 Ur Leukocyte Esterase Negative (NEGATIVE) 12/09/17 18:00 RPR Titer Nonreactive (NONREACTIVE) 12/10/17 06:00 Assessment: 12/11/17 13:09 WITHDRAWAL SX Plan: CONTINUE DETOX
[2017-12-11] MEDS: THIAMINE HCL 100 MG TABLET (FP) PO SCH (22:14)
[2017-12-11] MEDS: QUEtiapine FUMARATE 50 MG TABLET PO SCH (22:14)
[2017-12-12] MEDS ORDERED: METHADONE HCL 40 MG DISPERSABLE TABLET ONE (04:40)
[2017-12-12] MEDS ORDERED: METHADONE HCL 10 MG TABLET ONE (04:40)
[2017-12-12] MEDS: METHADONE 40 MG, METHADONE 30 MG PO SCH (05:28)
[2017-12-12] MEDS: diazePAM 5 MG TABLET PO PRN (05:42)
[2017-12-12] MEDS: hydrOXYzine PAMOATE 50 MG CAPSULE (FP) PO PRN (07:15)
[2017-12-12 09:13] VITALS: BP 105/71; PULSE 82; TEMP 95.8
[2017-12-12] MEDS: diazePAM 5 MG TABLET PO SCH (10:38)
[2017-12-12] MEDS: NICOTINE 21 MG/24 HOURS TOPICAL PATCH TD SCH (10:38)
[2017-12-12] MEDS: PRENATAL VITAMINS W/ FOLIC ACID TABLET (FP) PO SCH (10:38)
[2017-12-12] MEDS: PARoxetine HCL 10 MG TABLET (FP) PO SCH (10:38)
--- NOTE | 2017-12-12 11:14 | PN ---
S Progress Note (SOAP) Subjective: COUNSELOR ZACARIAS MCKEON AND PT REPORT BED AVAILABLE FOR PT TODAY ON [facility]. ALERT O X 3. NAD. PT EAGER TO GO TO REHAB TODAY. Objective: 12/12/17 11:13 Vital Signs Temperature 95.8 F L 12/12/17 09:12 Pulse Rate 82 12/12/17 09:12 Respiratory Rate 18 12/12/17 09:12 Blood Pressure 105/71 12/12/17 09:12 O2 Sat by Pulse Oximetry (%) Laboratory Tests 12/09/17 12/10/17 12/10/17 18:00 06:00 06:00 WBC 3.7 L RBC 3.94 L Hgb 11.3 L D Hct 34.2 L MCV 86.8 MCH 28.8 MCHC 33.2 RDW 13.6 Plt Count 149 D MPV 9.8 Sodium 143 Potassium 4.2 Chloride 109 H Carbon Dioxide 30 Anion Gap 4 L BUN 16 Creatinine 0.9 Creat Clearance w eGFR > 60 Random Glucose 90 Calcium 8.4 L Total Bilirubin 0.3 D AST 43 H D ALT 52 D Alkaline Phosphatase 63 Total Protein 6.6 Albumin 3.6 Urine Color Yellow Urine Appearance Clear Urine pH 5.0 Ur Specific [place] 1.020 Urine Protein Negative Urine Glucose (UA) Negative Urine Ketones Negative Urine Blood Negative Urine Nitrite Negative Urine Bilirubin Negative Urine Urobilinogen 2.0 Ur Leukocyte Esterase Negative RPR Titer 12/10/17 06:00 WBC RBC Hgb Hct MCV MCH MCHC RDW Plt Count MPV Sodium Potassium Chloride Carbon Dioxide Anion Gap BUN Creatinine Creat Clearance w eGFR Random Glucose Calcium Total Bilirubin AST ALT Alkaline Phosphatase Total Protein Albumin Urine Color Urine Appearance Urine pH Ur Specific [place] Urine Protein Urine Glucose (UA) Urine Ketones Urine Blood Urine Nitrite Urine Bilirubin Urine Urobilinogen Ur Leukocyte Esterase RPR Titer Nonreactive Assessment: 12/12/17 11:13 MEDICALLY STABLE Plan: D/C PT TODAY TO [facility] CONTINUE WITH DAILY METHADONE MAINTENANCE DOSE.
--- NOTE | 2017-12-12 11:16 | DS ---
[facility] Detox Discharge Summary Admission Date: 12/09/17 Discharge Date: 12/12/17 - History Present History: Alcohol Dependence, Cannabis Dependence, Cocaine Dependence, Sedative Dependence Additional Comments: PT DISCHARGED TO REHAB TODAY. ALERT O X 3. NAD. Pertinent Past History: PLEASE SEE DX BELOW - Physical Exam Results Vital Signs: Vital Signs Temperature 95.8 F L 12/12/17 09:12 Pulse Rate 82 12/12/17 09:12 Respiratory Rate 18 12/12/17 09:12 Blood Pressure 105/71 12/12/17 09:12 O2 Sat by Pulse Oximetry (%) Pertinent Admission Physical Exam Findings: WITHDRAWAL SX Laboratory Last Values WBC 3.7 K/mm3 (4.0-10.0) L 12/10/17 06:00 RBC 3.94 M/mm3 (4.00-5.60) L 12/10/17 06:00 Hgb 11.3 GM/dL (11.7-16.9) L D 12/10/17 06:00 Hct 34.2 % (35.4-49) L 12/10/17 06:00 MCV 86.8 fl (80-96) 12/10/17 06:00 MCH 28.8 pg (25.7-33.7) 12/10/17 06:00 MCHC 33.2 g/dl (32.0-35.9) 12/10/17 06:00 RDW 13.6 % (11.9-15.9) 12/10/17 06:00 Plt Count 149 K/MM3 (134-434) D 12/10/17 06:00 MPV 9.8 fl (7.5-11.1) 12/10/17 06:00 Sodium 143 mmol/L (136-145) 12/10/17 06:00 Potassium 4.2 mmol/L (3.5-5.1) 12/10/17 06:00 Chloride 109 mmol/L (98-107) H 12/10/17 06:00 Carbon Dioxide 30 mmol/L (21-32) 12/10/17 06:00 Anion Gap 4 (8-16) L 12/10/17 06:00 BUN 16 mg/dL (7-18) 12/10/17 06:00 Creatinine 0.9 mg/dL (0.7-1.3) 12/10/17 06:00 Creat Clearance w eGFR > 60 (>60) 12/10/17 06:00 Random Glucose 90 mg/dL (74-106) 12/10/17 06:00 Calcium 8.4 mg/dL (8.5-10.1) L 12/10/17 06:00 Total Bilirubin 0.3 mg/dL (0.2-1.0) D 12/10/17 06:00 AST 43 U/L (15-37) H D 12/10/17 06:00 ALT 52 U/L (12-78) D 12/10/17 06:00 Alkaline Phosphatase 63 U/L (45-117) 12/10/17 06:00 Total Protein 6.6 g/dl (6.4-8.2) 12/10/17 06:00 Albumin 3.6 g/dl (3.4-5.0) 12/10/17 06:00 Urine Color Yellow 12/09/17 18:00 Urine Appearance Clear 12/09/17 18:00 Urine pH 5.0 (5.0-8.0) 12/09/17 18:00 Ur Specific [place] 1.020 (1.001-1.035) 12/09/17 18:00 Urine Protein Negative (NEGATIVE) 12/09/17 18:00 Urine Glucose (UA) Negative (NEGATIVE) 12/09/17 18:00 Urine Ketones Negative (NEGATIVE) 12/09/17 18:00 Urine Blood Negative (NEGATIVE) 12/09/17 18:00 Urine Nitrite Negative (NEGATIVE) 12/09/17 18:00 Urine Bilirubin Negative (<2.0 mg/dL) 12/09/17 18:00 Urine Urobilinogen 2.0 mg/dL (0.2-1.0) 12/09/17 18:00 Ur Leukocyte Esterase Negative (NEGATIVE) 12/09/17 18:00 RPR Titer Nonreactive (NONREACTIVE) 12/10/17 06:00 - Treatment Hospital Course: Detox Protocol Followed, Detoxed Safely, Responded well, Discharged Condition Good, Rehab Referral Accepted Patient has Accepted a Rehab Referral to: [facility] - Medication Discharge Medications: Ambulatory Orders Paroxetine HCl [Paxil -] 20 mg PO DAILY #30 tablet 11/09/17 Quetiapine Fumarate [Seroquel -] 50 mg PO DAILY #30 tablet 11/09/17 Quetiapine Fumarate [Seroquel] 100 mg PO HS #30 tablet 11/09/17 - Diagnosis (1) Alcohol dependence with uncomplicated withdrawal Current Visit: Yes Status: Acute (2) Cannabis dependence Current Visit: Yes Status: Acute (3) Hepatitis C Current Visit: Yes Status: Chronic Qualifiers: Viral hepatitis chronicity: chronic (4) Nicotine dependence Current Visit: Yes Status: Acute Qualifiers: Nicotine product type: cigarettes Substance use status: in withdrawal Qualified Code(s): F17.213 - Nicotine dependence, cigarettes, with withdrawal (5) Opioid dependence on agonist therapy Current Visit: Yes Status: Chronic (6) Sedative/hypnotic withdrawal without complication Current Visit: Yes Status: Acute - AMA Did Patient Leave Against Medical Advice: No
[2017-12-13] MEDS ORDERED: diazePAM 5 MG TABLET PO SCH (10:00)
== END 2017-12-12 12:50 | disposition other institution (70) | DRG 774 ==
LOC: YASAS 09:43 → Y3N 12:32
PROVIDERS: ADMIT Internal Medicine; ATTEND Internal Medicine
PROC: HZ2ZZZZ Detoxification Services for Substance Abuse Treatment (ICD-10-PCS; principal; 2017-12-09)
DX: F10.230 Alcohol dependence with withdrawal, uncomplicated (principal); F13.230 Sedative, hypnotic or anxiolytic dependence with withdrawal, uncomplicated; F14.20 Cocaine dependence, uncomplicated; F12.20 Cannabis dependence, uncomplicated; F17.210 Nicotine dependence, cigarettes, uncomplicated; F31.9 Bipolar disorder, unspecified; F90.9 Attention-deficit hyperactivity disorder, unspecified type; B18.2 Chronic viral hepatitis C; G47.00 Insomnia, unspecified; R63.4 Abnormal weight loss; Z68.31 Body mass index [BMI] 31.0-31.9, adult
CPT/HCPCS: 36415; 80053; 81003; 85027; 86593; 93005; 93010

== ENCOUNTER 2017-12-12 13:01 | Inpatient (IN) | payer OTHER ==
--- NOTE | 2017-12-12 14:58 | HP ---
Psychiatrist Admission - Data Date of interview: 12/12/17 Admission source: 3N Identifying data: Thisis one of the several inpatient rehabilitation admissions for this 42 year old single male father of 2, unemployed and currently hoemless. Medical History: Hep C, smokes cigarettes 1 PPD. On MMTP 70 mg daily. Psychiatric History: First psychiatric conact at age of 10, states mother took him to [facility] to address hyperactivity, was prescribed medications he does not recall, first psychiatric hospitlaization in in 1989, took pills in sucide attempt following his mother's and admitted to [facility], multiple subsequent hospitalizations, with most recent 4 years ago to [facility] to address depressed mood, non-compliant with medications and aftercare, currently on Seroquel 100 mg po hs and Paxil 20 mg po daily, seen by and continued medications with lower dosage. Physical/Sexual Abuse/Trauma History: Patient denies. Vital Signs: Vital Signs - 24 hr 12/12/17 13:05 Temperature 98.3 F Pulse Rate 76 Respiratory 16 Rate Blood Pressure 110/64 Allergies/Adverse Reactions: Allergies Allergy/AdvReac Type Severity Reaction Status Date / Time No Known Allergies Allergy Verified 12/12/17 13:31 Date of last physical exam: 12/09/17 Concur with the findings of this exam: Yes - Substance Abuse/Tx History Hx Alcohol Use: Yes (1 pint daily) Hx Substance Use: Yes Substance Use Type: Cocaine (1-3 times last months), Tranquilizers (xanax up to 8 mg daily) Hx Substance Use Treatment: Yes (several detox/rehabs) Mental Status Exam - Mental Status Exam Alert and Oriented to: Time, Place, Person Cognitive Function: Good Patient Appearance: Well Groomed Mood: Sad Affect: Mood Congruent Patient Behavior: Appropriate, Cooperative Speech Pattern: Clear, Appropriate Voice Loudness: Normal Thought Process: Intact, Goal Oriented Thought Disorder: Not Present Hallucinations: Denies Suicidal Ideation: Denies Homicidal Ideation: Denies Insight/Judgement: Fair Sleep: Fair Appetite: Fair Muscle strength/Tone: Normal Gait/Station: Normal Psychiatric Findings - Problem List ([place] 1, 2,3) (1) Alcohol dependence Current Visit: No Status: Acute (2) Cocaine dependence Current Visit: No Status: Acute Qualifiers: (3) Nicotine dependence Current Visit: No Status: Acute Qualifiers: Nicotine product type: cigarettes Substance use status: in withdrawal Qualified Code(s): F17.213 - Nicotine dependence, cigarettes, with withdrawal (4) Bipolar disorder Current Visit: No Status: Chronic Comment: self reports. (5) Hepatitis C Current Visit: No Status: Chronic Qualifiers: Viral hepatitis chronicity: chronic (6) Opioid dependence on agonist therapy Current Visit: No Status: Chronic - Initial Treatment Plan Initial Treatment Plan: Will continue Seroquel 50 mg po hs and PAxil 10 mg po daily, monitor progress as needed.
[2017-12-12] MEDS ORDERED: IBUPROFEN 400 MG TABLET (FP) PO PRN (15:32)
[2017-12-12] MEDS ORDERED: MAGNESIUM CITRATE 300 ML BOTTLE PO PRN (15:32)
[2017-12-12] MEDS ORDERED: MENTHOL/PHENOL 1 EACH UD MM PRN (15:32)
[2017-12-12] MEDS ORDERED: MAGNESIUM HYDROX 2400MG/30ML ORAL SUSPENSION 30 ML CUP PO PRN (15:32)
[2017-12-12] MEDS ORDERED: P-EPHED 60MG/TRIPROLIDI 2.5MG TABLET PO PRN (15:32)
[2017-12-12] MEDS ORDERED: hydrOXYzine PAMOATE 50 MG CAPSULE (FP) PO PRN (15:32)
[2017-12-12] MEDS ORDERED: MAG HYDROX/AL HYDROX/SIMETH 30 ML UNIT-DOSE CUP PO PRN (15:32)
[2017-12-12] MEDS ORDERED: guaiFENesin/D-METHORPHAN HB 10 ML UNIT-DOSE CUPS PO PRN (15:32)
[2017-12-12] MEDS ORDERED: LOPERAMIDE HCL 2 MG CAPSULE PO PRN (15:32)
[2017-12-12] MEDS ORDERED: ACETAMINOPHEN 325 MG TABLET (FP) PO PRN (15:32)
[2017-12-12] MEDS ORDERED: NICOTINE POLACRILEX 4 MG GUM BUC PRN (15:32)
[2017-12-12] MEDS: NICOTINE 21 MG/24 HOURS TOPICAL PATCH TD SCH (15:58)
[2017-12-12] MEDS: THIAMINE HCL 100 MG TABLET (FP) PO SCH (21:14)
[2017-12-12] MEDS: QUEtiapine FUMARATE 50 MG TABLET PO SCH (21:14)
[2017-12-12] MEDS ORDERED: MELATONIN 5 MG TABLETS PO PRN (22:00)
[2017-12-13] MEDS ORDERED: METHADONE HCL 10 MG TABLET ONE (05:52)
[2017-12-13] MEDS ORDERED: METHADONE HCL 40 MG DISPERSABLE TABLET ONE (05:53)
[2017-12-13] MEDS ORDERED: METHADONE HCL 10 MG TABLET PO SCH (06:00)
[2017-12-13] MEDS: METHADONE 40 MG, METHADONE 30 MG PO SCH (06:10)
[2017-12-13] MEDS: NICOTINE 21 MG/24 HOURS TOPICAL PATCH TD SCH (09:43)
[2017-12-13] MEDS: PARoxetine HCL 10 MG TABLET (FP) PO SCH (09:43)
[2017-12-13] MEDS: PRENATAL VITAMINS W/ FOLIC ACID TABLET (FP) PO SCH (09:43)
--- NOTE | 2017-12-13 14:48 | PN ---
STEVIE Progress Note Note: Psychiatric nurse practitioner conference planner note: Call received by RN stating patient is c/o anxiety and is requesting medications to address his anxiety. Vistaril 50mg PRN every 6 hours ordered for patient. Will continue to monitor.
[2017-12-13] MEDS: hydrOXYzine PAMOATE 50 MG CAPSULE (FP) PO PRN (15:51)
[2017-12-13] MEDS: THIAMINE HCL 100 MG TABLET (FP) PO SCH (21:20)
[2017-12-13] MEDS: QUEtiapine FUMARATE 50 MG TABLET PO SCH (21:20)
[2017-12-14] MEDS ORDERED: METHADONE HCL 10 MG TABLET ONE (03:15)
[2017-12-14] MEDS ORDERED: METHADONE HCL 40 MG DISPERSABLE TABLET ONE (03:15)
[2017-12-14] MEDS: METHADONE 40 MG, METHADONE 30 MG PO SCH (06:13)
[2017-12-14] MEDS: hydrOXYzine PAMOATE 50 MG CAPSULE (FP) PO PRN ×2 (08:30→15:18)
[2017-12-14] MEDS: PRENATAL VITAMINS W/ FOLIC ACID TABLET (FP) PO SCH (09:34)
[2017-12-14] MEDS: NICOTINE 21 MG/24 HOURS TOPICAL PATCH TD SCH (09:34)
[2017-12-14] MEDS: PARoxetine HCL 10 MG TABLET (FP) PO SCH (09:34)
--- NOTE | 2017-12-14 11:27 | PN ---
[facility] Progress Note Note: sore in left upper lip for 2 days,no bleeding,bacitracin ointment bid
[2017-12-14] MEDS: BACITRACIN 15 GM TUBE TOPICAL OINTMENT TP SCH ×2 (14:00→21:07)
[2017-12-14] MEDS: QUEtiapine FUMARATE 50 MG TABLET PO SCH (21:07)
[2017-12-14] MEDS: THIAMINE HCL 100 MG TABLET (FP) PO SCH (21:07)
[2017-12-15] MEDS ORDERED: METHADONE HCL 10 MG TABLET ONE (03:13)
[2017-12-15] MEDS ORDERED: METHADONE HCL 40 MG DISPERSABLE TABLET ONE (03:14)
[2017-12-15] MEDS: METHADONE 40 MG, METHADONE 30 MG PO SCH (06:07)
[2017-12-15] MEDS: PRENATAL VITAMINS W/ FOLIC ACID TABLET (FP) PO SCH (09:40)
[2017-12-15] MEDS: PARoxetine HCL 10 MG TABLET (FP) PO SCH (09:40)
[2017-12-15] MEDS: NICOTINE 21 MG/24 HOURS TOPICAL PATCH TD SCH (09:41)
[2017-12-15] MEDS: hydrOXYzine PAMOATE 50 MG CAPSULE (FP) PO PRN (09:42)
[2017-12-15] MEDS: BACITRACIN 0.9 GM PACKET TP SCH ×2 (10:45→21:08)
[2017-12-15] MEDS: THIAMINE HCL 100 MG TABLET (FP) PO SCH (21:08)
[2017-12-15] MEDS: QUEtiapine FUMARATE 50 MG TABLET PO SCH (21:08)
[2017-12-16] MEDS ORDERED: METHADONE HCL 40 MG DISPERSABLE TABLET ONE (03:18)
[2017-12-16] MEDS ORDERED: METHADONE HCL 10 MG TABLET ONE (03:18)
[2017-12-16] MEDS: METHADONE 40 MG, METHADONE 30 MG PO SCH (06:08)
[2017-12-16] MEDS: hydrOXYzine PAMOATE 50 MG CAPSULE (FP) PO PRN (08:42)
[2017-12-16] MEDS: NICOTINE 21 MG/24 HOURS TOPICAL PATCH TD SCH (09:39)
[2017-12-16] MEDS: BACITRACIN 0.9 GM PACKET TP SCH ×2 (09:39→21:08)
[2017-12-16] MEDS: PARoxetine HCL 10 MG TABLET (FP) PO SCH (09:39)
[2017-12-16] MEDS: PRENATAL VITAMINS W/ FOLIC ACID TABLET (FP) PO SCH (09:39)
[2017-12-16] MEDS: QUEtiapine FUMARATE 50 MG TABLET PO SCH (21:08)
[2017-12-16] MEDS: THIAMINE HCL 100 MG TABLET (FP) PO SCH (21:08)
[2017-12-17] MEDS ORDERED: METHADONE HCL 10 MG TABLET ONE (05:32)
[2017-12-17] MEDS ORDERED: METHADONE HCL 40 MG DISPERSABLE TABLET ONE (05:32)
[2017-12-17] MEDS: METHADONE 40 MG, METHADONE 30 MG PO SCH (05:56)
[2017-12-17] MEDS: PARoxetine HCL 10 MG TABLET (FP) PO SCH (09:23)
[2017-12-17] MEDS: BACITRACIN 0.9 GM PACKET TP SCH ×2 (09:23→21:10)
[2017-12-17] MEDS: NICOTINE 21 MG/24 HOURS TOPICAL PATCH TD SCH (09:23)
[2017-12-17] MEDS: PRENATAL VITAMINS W/ FOLIC ACID TABLET (FP) PO SCH (09:23)
[2017-12-17] MEDS: QUEtiapine FUMARATE 50 MG TABLET PO SCH (21:10)
[2017-12-17] MEDS: THIAMINE HCL 100 MG TABLET (FP) PO SCH (21:10)
[2017-12-18] MEDS ORDERED: METHADONE HCL 40 MG DISPERSABLE TABLET ONE (04:51)
[2017-12-18] MEDS ORDERED: METHADONE HCL 10 MG TABLET ONE (04:51)
[2017-12-18] MEDS: METHADONE 40 MG, METHADONE 30 MG PO SCH (06:04)
[2017-12-18] MEDS: BACITRACIN 0.9 GM PACKET TP SCH ×2 (09:44→21:20)
[2017-12-18] MEDS: NICOTINE 21 MG/24 HOURS TOPICAL PATCH TD SCH (09:44)
[2017-12-18] MEDS: PARoxetine HCL 10 MG TABLET (FP) PO SCH (09:44)
[2017-12-18] MEDS: PRENATAL VITAMINS W/ FOLIC ACID TABLET (FP) PO SCH (09:45)
[2017-12-18] MEDS: QUEtiapine FUMARATE 50 MG TABLET PO SCH (21:20)
[2017-12-18] MEDS: THIAMINE HCL 100 MG TABLET (FP) PO SCH (21:20)
[2017-12-19] MEDS ORDERED: METHADONE HCL 40 MG DISPERSABLE TABLET ONE (06:00)
[2017-12-19] MEDS ORDERED: METHADONE HCL 10 MG TABLET ONE (06:00)
[2017-12-19] MEDS: METHADONE 40 MG, METHADONE 30 MG PO SCH (06:02)
[2017-12-19] MEDS: PARoxetine HCL 10 MG TABLET (FP) PO SCH (09:36)
[2017-12-19] MEDS: PRENATAL VITAMINS W/ FOLIC ACID TABLET (FP) PO SCH (09:36)
[2017-12-19] MEDS: NICOTINE 21 MG/24 HOURS TOPICAL PATCH TD SCH (09:36)
[2017-12-19] MEDS: BACITRACIN 0.9 GM PACKET TP SCH ×2 (09:36→21:10)
[2017-12-19] MEDS: THIAMINE HCL 100 MG TABLET (FP) PO SCH (21:10)
[2017-12-19] MEDS: QUEtiapine FUMARATE 50 MG TABLET PO SCH (21:10)
[2017-12-20] MEDS ORDERED: METHADONE HCL 10 MG TABLET ONE (05:20)
[2017-12-20] MEDS ORDERED: METHADONE HCL 40 MG DISPERSABLE TABLET ONE (05:20)
[2017-12-20] MEDS: METHADONE 40 MG, METHADONE 30 MG PO SCH (06:06)
[2017-12-20] MEDS: BACITRACIN 0.9 GM PACKET TP SCH ×2 (09:43→21:10)
[2017-12-20] MEDS: PARoxetine HCL 10 MG TABLET (FP) PO SCH (09:43)
[2017-12-20] MEDS: PRENATAL VITAMINS W/ FOLIC ACID TABLET (FP) PO SCH (09:43)
[2017-12-20] MEDS: NICOTINE 21 MG/24 HOURS TOPICAL PATCH TD SCH (09:43)
[2017-12-20] MEDS: QUEtiapine FUMARATE 50 MG TABLET PO SCH (21:10)
[2017-12-20] MEDS: THIAMINE HCL 100 MG TABLET (FP) PO SCH (21:10)
[2017-12-21] MEDS ORDERED: METHADONE HCL 10 MG TABLET ONE (03:02)
[2017-12-21] MEDS ORDERED: METHADONE HCL 40 MG DISPERSABLE TABLET ONE (03:03)
[2017-12-21] MEDS: METHADONE 40 MG, METHADONE 30 MG PO SCH (06:13)
[2017-12-21] MEDS: PARoxetine HCL 10 MG TABLET (FP) PO SCH (09:55)
[2017-12-21] MEDS: PRENATAL VITAMINS W/ FOLIC ACID TABLET (FP) PO SCH (09:55)
[2017-12-21] MEDS: NICOTINE 21 MG/24 HOURS TOPICAL PATCH TD SCH (09:56)
[2017-12-21] MEDS: BACITRACIN 0.9 GM PACKET TP SCH ×2 (09:57→21:12)
[2017-12-21] MEDS: QUEtiapine FUMARATE 50 MG TABLET PO SCH (21:12)
[2017-12-21] MEDS: THIAMINE HCL 100 MG TABLET (FP) PO SCH (21:12)
[2017-12-22] MEDS ORDERED: METHADONE HCL 40 MG DISPERSABLE TABLET ONE (02:55)
[2017-12-22] MEDS ORDERED: METHADONE HCL 10 MG TABLET ONE (02:55)
[2017-12-22] MEDS: METHADONE 40 MG, METHADONE 30 MG PO SCH (06:03)
[2017-12-22] MEDS: PARoxetine HCL 10 MG TABLET (FP) PO SCH (09:45)
[2017-12-22] MEDS: NICOTINE 21 MG/24 HOURS TOPICAL PATCH TD SCH (09:45)
[2017-12-22] MEDS: BACITRACIN 0.9 GM PACKET TP SCH ×2 (09:45→21:14)
[2017-12-22] MEDS: PRENATAL VITAMINS W/ FOLIC ACID TABLET (FP) PO SCH (09:45)
[2017-12-22] MEDS: QUEtiapine FUMARATE 50 MG TABLET PO SCH (21:13)
[2017-12-22] MEDS: THIAMINE HCL 100 MG TABLET (FP) PO SCH (21:14)
[2017-12-23] MEDS ORDERED: METHADONE HCL 10 MG TABLET ONE (04:43)
[2017-12-23] MEDS ORDERED: METHADONE HCL 40 MG DISPERSABLE TABLET ONE (04:43)
[2017-12-23] MEDS: METHADONE 40 MG, METHADONE 30 MG PO SCH (06:10)
[2017-12-23] MEDS: BACITRACIN 0.9 GM PACKET TP SCH ×2 (09:49→21:06)
[2017-12-23] MEDS: PARoxetine HCL 10 MG TABLET (FP) PO SCH (09:49)
[2017-12-23] MEDS: PRENATAL VITAMINS W/ FOLIC ACID TABLET (FP) PO SCH (09:49)
[2017-12-23] MEDS: NICOTINE 21 MG/24 HOURS TOPICAL PATCH TD SCH (09:50)
[2017-12-23] MEDS: THIAMINE HCL 100 MG TABLET (FP) PO SCH (21:06)
[2017-12-23] MEDS: QUEtiapine FUMARATE 50 MG TABLET PO SCH (21:07)
[2017-12-24] MEDS ORDERED: METHADONE HCL 10 MG TABLET ONE (05:42)
[2017-12-24] MEDS ORDERED: METHADONE HCL 40 MG DISPERSABLE TABLET ONE (05:43)
[2017-12-24] MEDS: METHADONE 40 MG, METHADONE 30 MG PO SCH (06:08)
[2017-12-24] MEDS: PRENATAL VITAMINS W/ FOLIC ACID TABLET (FP) PO SCH (09:50)
[2017-12-24] MEDS: NICOTINE 21 MG/24 HOURS TOPICAL PATCH TD SCH (09:50)
[2017-12-24] MEDS: PARoxetine HCL 10 MG TABLET (FP) PO SCH (09:50)
[2017-12-24] MEDS: BACITRACIN 0.9 GM PACKET TP SCH ×2 (09:50→21:08)
[2017-12-24] MEDS: QUEtiapine FUMARATE 50 MG TABLET PO SCH (21:07)
[2017-12-24] MEDS: THIAMINE HCL 100 MG TABLET (FP) PO SCH (21:08)
[2017-12-25] MEDS ORDERED: METHADONE HCL 10 MG TABLET ONE (03:31)
[2017-12-25] MEDS ORDERED: METHADONE HCL 40 MG DISPERSABLE TABLET ONE (03:32)
[2017-12-25] MEDS: METHADONE 40 MG, METHADONE 30 MG PO SCH (06:08)
[2017-12-25] MEDS: BACITRACIN 0.9 GM PACKET TP SCH ×2 (09:53→21:14)
[2017-12-25] MEDS: PARoxetine HCL 10 MG TABLET (FP) PO SCH (09:53)
[2017-12-25] MEDS: PRENATAL VITAMINS W/ FOLIC ACID TABLET (FP) PO SCH (09:54)
[2017-12-25] MEDS: NICOTINE 21 MG/24 HOURS TOPICAL PATCH TD SCH (09:54)
[2017-12-25] MEDS: QUEtiapine FUMARATE 50 MG TABLET PO SCH (21:13)
[2017-12-25] MEDS: THIAMINE HCL 100 MG TABLET (FP) PO SCH (21:14)
[2017-12-26] MEDS ORDERED: METHADONE HCL 10 MG TABLET ONE (04:22)
[2017-12-26] MEDS ORDERED: METHADONE HCL 40 MG DISPERSABLE TABLET ONE (04:23)
[2017-12-26] MEDS: METHADONE 40 MG, METHADONE 30 MG PO SCH (06:00)
[2017-12-26] MEDS: BACITRACIN 0.9 GM PACKET TP SCH ×2 (09:45→21:10)
[2017-12-26] MEDS: PRENATAL VITAMINS W/ FOLIC ACID TABLET (FP) PO SCH (09:45)
[2017-12-26] MEDS: PARoxetine HCL 10 MG TABLET (FP) PO SCH (09:45)
[2017-12-26] MEDS: NICOTINE 21 MG/24 HOURS TOPICAL PATCH TD SCH (09:45)
[2017-12-26] MEDS: QUEtiapine FUMARATE 50 MG TABLET PO SCH (21:10)
[2017-12-26] MEDS: THIAMINE HCL 100 MG TABLET (FP) PO SCH (21:10)
[2017-12-26] MEDS: hydrOXYzine PAMOATE 50 MG CAPSULE (FP) PO PRN (21:10)
[2017-12-27] MEDS ORDERED: METHADONE HCL 10 MG TABLET ONE (04:32)
[2017-12-27] MEDS ORDERED: METHADONE HCL 40 MG DISPERSABLE TABLET ONE (04:33)
[2017-12-27] MEDS: METHADONE 40 MG, METHADONE 30 MG PO SCH (07:06)
[2017-12-27] MEDS: NICOTINE 21 MG/24 HOURS TOPICAL PATCH TD SCH (09:34)
[2017-12-27] MEDS: BACITRACIN 0.9 GM PACKET TP SCH ×2 (09:34→21:08)
[2017-12-27] MEDS: PARoxetine HCL 10 MG TABLET (FP) PO SCH (09:34)
[2017-12-27] MEDS: PRENATAL VITAMINS W/ FOLIC ACID TABLET (FP) PO SCH (09:35)
[2017-12-27] MEDS: QUEtiapine FUMARATE 50 MG TABLET PO SCH (21:08)
[2017-12-27] MEDS: THIAMINE HCL 100 MG TABLET (FP) PO SCH (21:08)
[2017-12-27] MEDS: hydrOXYzine PAMOATE 50 MG CAPSULE (FP) PO PRN (21:08)
[2017-12-28] MEDS ORDERED: METHADONE HCL 40 MG DISPERSABLE TABLET ONE (03:01)
[2017-12-28] MEDS ORDERED: METHADONE HCL 10 MG TABLET ONE (03:01)
[2017-12-28] MEDS: METHADONE 40 MG, METHADONE 30 MG PO SCH (07:00)
[2017-12-28] MEDS: PARoxetine HCL 10 MG TABLET (FP) PO SCH (09:31)
[2017-12-28] MEDS: NICOTINE 21 MG/24 HOURS TOPICAL PATCH TD SCH (09:31)
[2017-12-28] MEDS: BACITRACIN 0.9 GM PACKET TP SCH ×2 (09:32→21:11)
[2017-12-28] MEDS: PRENATAL VITAMINS W/ FOLIC ACID TABLET (FP) PO SCH (09:32)
[2017-12-28] MEDS: QUEtiapine FUMARATE 50 MG TABLET PO SCH (21:11)
[2017-12-28] MEDS: hydrOXYzine PAMOATE 50 MG CAPSULE (FP) PO PRN (21:11)
[2017-12-28] MEDS: THIAMINE HCL 100 MG TABLET (FP) PO SCH (21:11)
[2017-12-29] MEDS ORDERED: METHADONE HCL 40 MG DISPERSABLE TABLET ONE (02:30)
[2017-12-29] MEDS ORDERED: METHADONE HCL 10 MG TABLET ONE (02:30)
[2017-12-29] MEDS: METHADONE 40 MG, METHADONE 30 MG PO SCH (06:13)
[2017-12-29] MEDS: PARoxetine HCL 10 MG TABLET (FP) PO SCH (10:00)
[2017-12-29] MEDS: BACITRACIN 0.9 GM PACKET TP SCH ×2 (10:01→21:09)
[2017-12-29] MEDS: PRENATAL VITAMINS W/ FOLIC ACID TABLET (FP) PO SCH (10:01)
[2017-12-29] MEDS: NICOTINE 21 MG/24 HOURS TOPICAL PATCH TD SCH (10:01)
[2017-12-29] MEDS: THIAMINE HCL 100 MG TABLET (FP) PO SCH (21:09)
[2017-12-29] MEDS: QUEtiapine FUMARATE 50 MG TABLET PO SCH (21:09)
[2017-12-29] MEDS: hydrOXYzine PAMOATE 50 MG CAPSULE (FP) PO PRN (21:09)
[2017-12-30] MEDS ORDERED: METHADONE HCL 10 MG TABLET ONE (05:51)
[2017-12-30] MEDS ORDERED: METHADONE HCL 40 MG DISPERSABLE TABLET ONE (05:52)
[2017-12-30] MEDS: METHADONE 40 MG, METHADONE 30 MG PO SCH (06:08)
[2017-12-30] MEDS: PRENATAL VITAMINS W/ FOLIC ACID TABLET (FP) PO SCH (09:39)
[2017-12-30] MEDS: BACITRACIN 0.9 GM PACKET TP SCH ×2 (09:39→21:07)
[2017-12-30] MEDS: PARoxetine HCL 10 MG TABLET (FP) PO SCH (09:39)
[2017-12-30] MEDS: NICOTINE 21 MG/24 HOURS TOPICAL PATCH TD SCH (09:39)
[2017-12-30] MEDS: THIAMINE HCL 100 MG TABLET (FP) PO SCH (21:07)
[2017-12-30] MEDS: QUEtiapine FUMARATE 50 MG TABLET PO SCH (21:07)
[2017-12-31] MEDS ORDERED: METHADONE HCL 10 MG TABLET ONE (04:26)
[2017-12-31] MEDS ORDERED: METHADONE HCL 40 MG DISPERSABLE TABLET ONE (04:27)
[2017-12-31] MEDS: METHADONE 40 MG, METHADONE 30 MG PO SCH (05:49)
[2017-12-31] MEDS: BACITRACIN 0.9 GM PACKET TP SCH ×2 (09:42→21:11)
[2017-12-31] MEDS: NICOTINE 21 MG/24 HOURS TOPICAL PATCH TD SCH (09:42)
[2017-12-31] MEDS: PARoxetine HCL 10 MG TABLET (FP) PO SCH (09:42)
[2017-12-31] MEDS: PRENATAL VITAMINS W/ FOLIC ACID TABLET (FP) PO SCH (09:42)
[2017-12-31] MEDS: THIAMINE HCL 100 MG TABLET (FP) PO SCH (21:10)
[2017-12-31] MEDS: QUEtiapine FUMARATE 50 MG TABLET PO SCH (21:10)
[2017-12-31] MEDS: hydrOXYzine PAMOATE 50 MG CAPSULE (FP) PO PRN (21:10)
[2018-01-01] MEDS ORDERED: METHADONE HCL 10 MG TABLET ONE (05:31)
[2018-01-01] MEDS ORDERED: METHADONE HCL 40 MG DISPERSABLE TABLET ONE (05:31)
[2018-01-01] MEDS: METHADONE 40 MG, METHADONE 30 MG PO SCH (06:12)
[2018-01-01] MEDS: BACITRACIN 0.9 GM PACKET TP SCH ×2 (09:51→21:12)
[2018-01-01] MEDS: PARoxetine HCL 10 MG TABLET (FP) PO SCH (09:52)
[2018-01-01] MEDS: NICOTINE 21 MG/24 HOURS TOPICAL PATCH TD SCH (09:52)
[2018-01-01] MEDS: PRENATAL VITAMINS W/ FOLIC ACID TABLET (FP) PO SCH (09:53)
[2018-01-01] MEDS: THIAMINE HCL 100 MG TABLET (FP) PO SCH (21:12)
[2018-01-01] MEDS: QUEtiapine FUMARATE 50 MG TABLET PO SCH (21:12)
[2018-01-02] MEDS ORDERED: METHADONE HCL 10 MG TABLET ONE (04:07)
[2018-01-02] MEDS ORDERED: METHADONE HCL 40 MG DISPERSABLE TABLET ONE (04:08)
[2018-01-02] MEDS: METHADONE 40 MG, METHADONE 30 MG PO SCH (06:05)
[2018-01-02] MEDS: NICOTINE 21 MG/24 HOURS TOPICAL PATCH TD SCH (09:55)
[2018-01-02] MEDS: PRENATAL VITAMINS W/ FOLIC ACID TABLET (FP) PO SCH (09:55)
[2018-01-02] MEDS: PARoxetine HCL 10 MG TABLET (FP) PO SCH (09:55)
[2018-01-02] MEDS: BACITRACIN 0.9 GM PACKET TP SCH ×2 (09:55→21:10)
[2018-01-02] MEDS: QUEtiapine FUMARATE 50 MG TABLET PO SCH (21:10)
[2018-01-02] MEDS: THIAMINE HCL 100 MG TABLET (FP) PO SCH (21:10)
[2018-01-03] MEDS ORDERED: METHADONE HCL 10 MG TABLET ONE (05:04)
[2018-01-03] MEDS ORDERED: METHADONE HCL 40 MG DISPERSABLE TABLET ONE (05:04)
[2018-01-03] MEDS: METHADONE 40 MG, METHADONE 30 MG PO SCH (06:03)
[2018-01-03] MEDS: PARoxetine HCL 10 MG TABLET (FP) PO SCH (09:34)
[2018-01-03] MEDS: NICOTINE 21 MG/24 HOURS TOPICAL PATCH TD SCH (09:35)
[2018-01-03] MEDS: PRENATAL VITAMINS W/ FOLIC ACID TABLET (FP) PO SCH (09:35)
[2018-01-03] MEDS: BACITRACIN 0.9 GM PACKET TP SCH ×2 (09:35→21:17)
[2018-01-03] MEDS: QUEtiapine FUMARATE 50 MG TABLET PO SCH (21:16)
[2018-01-03] MEDS: THIAMINE HCL 100 MG TABLET (FP) PO SCH (21:17)
[2018-01-04] MEDS ORDERED: METHADONE HCL 10 MG TABLET ONE (02:21)
[2018-01-04] MEDS ORDERED: METHADONE HCL 40 MG DISPERSABLE TABLET ONE (02:21)
[2018-01-04] MEDS: METHADONE 40 MG, METHADONE 30 MG PO SCH (06:17)
[2018-01-04] MEDS: PRENATAL VITAMINS W/ FOLIC ACID TABLET (FP) PO SCH (09:31)
[2018-01-04] MEDS: BACITRACIN 0.9 GM PACKET TP SCH ×2 (09:31→21:07)
[2018-01-04] MEDS: NICOTINE 21 MG/24 HOURS TOPICAL PATCH TD SCH (09:31)
[2018-01-04] MEDS: PARoxetine HCL 10 MG TABLET (FP) PO SCH (09:31)
[2018-01-04] MEDS: THIAMINE HCL 100 MG TABLET (FP) PO SCH (21:07)
[2018-01-04] MEDS: QUEtiapine FUMARATE 50 MG TABLET PO SCH (21:07)
[2018-01-05] MEDS ORDERED: METHADONE HCL 10 MG TABLET ONE (04:02)
[2018-01-05] MEDS ORDERED: METHADONE HCL 40 MG DISPERSABLE TABLET ONE (04:03)
[2018-01-05] MEDS: METHADONE 40 MG, METHADONE 30 MG PO SCH (06:02)
[2018-01-05] MEDS: PRENATAL VITAMINS W/ FOLIC ACID TABLET (FP) PO SCH (09:35)
[2018-01-05] MEDS: PARoxetine HCL 10 MG TABLET (FP) PO SCH (09:35)
[2018-01-05] MEDS: BACITRACIN 0.9 GM PACKET TP SCH (09:35)
[2018-01-05] MEDS: NICOTINE 21 MG/24 HOURS TOPICAL PATCH TD SCH (09:35)
[2018-01-05] MEDS: QUEtiapine FUMARATE 50 MG TABLET PO SCH (21:09)
[2018-01-05] MEDS: THIAMINE HCL 100 MG TABLET (FP) PO SCH (21:09)
[2018-01-06] MEDS ORDERED: METHADONE HCL 10 MG TABLET ONE (03:03)
[2018-01-06] MEDS ORDERED: METHADONE HCL 40 MG DISPERSABLE TABLET ONE (03:03)
[2018-01-06] MEDS: METHADONE 40 MG, METHADONE 30 MG PO SCH (06:05)
[2018-01-06] MEDS: NICOTINE 21 MG/24 HOURS TOPICAL PATCH TD SCH (09:50)
[2018-01-06] MEDS: PRENATAL VITAMINS W/ FOLIC ACID TABLET (FP) PO SCH (09:50)
[2018-01-06] MEDS: PARoxetine HCL 10 MG TABLET (FP) PO SCH (09:50)
[2018-01-06] MEDS: QUEtiapine FUMARATE 50 MG TABLET PO SCH (21:13)
[2018-01-06] MEDS: THIAMINE HCL 100 MG TABLET (FP) PO SCH (21:13)
[2018-01-07] MEDS ORDERED: METHADONE HCL 10 MG TABLET ONE (06:02)
[2018-01-07] MEDS ORDERED: METHADONE HCL 40 MG DISPERSABLE TABLET ONE (06:02)
[2018-01-07] MEDS: METHADONE 40 MG, METHADONE 30 MG PO SCH (06:30)
[2018-01-07] MEDS: PARoxetine HCL 10 MG TABLET (FP) PO SCH (09:59)
[2018-01-07] MEDS: NICOTINE 21 MG/24 HOURS TOPICAL PATCH TD SCH (09:59)
[2018-01-07] MEDS: PRENATAL VITAMINS W/ FOLIC ACID TABLET (FP) PO SCH (09:59)
[2018-01-07] MEDS: QUEtiapine FUMARATE 50 MG TABLET PO SCH (21:05)
[2018-01-07] MEDS: THIAMINE HCL 100 MG TABLET (FP) PO SCH (21:05)
[2018-01-08] MEDS ORDERED: METHADONE HCL 40 MG DISPERSABLE TABLET ONE (06:27)
[2018-01-08] MEDS ORDERED: METHADONE HCL 10 MG TABLET ONE (06:27)
[2018-01-08] MEDS: METHADONE 40 MG, METHADONE 30 MG PO SCH (06:27)
[2018-01-08] MEDS: PARoxetine HCL 10 MG TABLET (FP) PO SCH (09:56)
[2018-01-08] MEDS: PRENATAL VITAMINS W/ FOLIC ACID TABLET (FP) PO SCH (09:56)
[2018-01-08] MEDS: NICOTINE 21 MG/24 HOURS TOPICAL PATCH TD SCH (09:58)
--- NOTE | 2018-01-08 15:39 | PN ---
Psychiatric Progress Note Vital Signs: Vital Signs Period Temp Pulse Resp BP Sys/Moore Pulse Ox Last 24 Hr 97.7 F 65 18-18 119/76 Date of Session: 01/08/18 Chief Complaint:: discharge visit HPI: Patient is addressing alcohol, cocaine, nicotine dependence comorbid Bipolar disorder. ROS: Hep C. On MMTP 70 mg daily. Current Medications: Active Medications Generic Name Dose Route Start Last Admin Trade Name Freq PRN Reason Stop Dose Admin Acetaminophen 650 mg 12/12/17 15:32 Tylenol - PO Q4H PRN FEVER Al Hydroxide/Mg Hydroxide 30 ml 12/12/17 15:32 Mylanta Oral Suspension - PO Q6H PRN DYSPEPSIA Eucalyptus/Menthol/Phenol/Sorbitol 1 each 12/12/17 15:32 Cepastat Lozenge - MM Q4H PRN SORE THROAT Guaifenesin 10 ml 12/12/17 15:32 Robitussin Dm - PO Q6H PRN COUGH Hydroxyzine Pamoate 50 mg 12/13/17 14:45 12/31/17 21:10 Vistaril - PO 50 mg Q6H PRN Administration ANXIETY Ibuprofen 400 mg 12/12/17 15:32 Motrin - PO Q6H PRN Pain Level 4-6 Loperamide HCl 4 mg 12/12/17 15:32 Imodium - PO Q6H PRN DIARRHEA Magnesium Citrate 300 ml 12/12/17 15:32 Citroma - PO Q48H PRN CONSTIPATION Magnesium Hydroxide 30 ml 12/12/17 15:32 Milk Of Magnesia - PO DAILY PRN CONSTIPATION Melatonin 5 mg 12/12/17 22:00 Melatonin PO HS PRN INSOMNIA Methadone HCl 40 mg/ Methadone 70 mg 01/07/18 06:00 01/08/18 06:27 HCl 30 mg PO 01/13/18 05:59 70 mg DAILY@0600 THEA Administration Nicotine 21 mg 12/12/17 15:45 01/08/18 09:58 Nicoderm Patch - TD 21 mg DAILY THEA Administration Nicotine Polacrilex 4 mg 12/12/17 15:32 Nicorette Gum - BUC Q2H PRN NICOTINE REPLACEMENT RX Paroxetine HCl 10 mg 12/13/17 10:00 01/08/18 09:56 Paxil - PO 10 mg DAILY THEA Administration Multivit/Folic Acid/Iron 1 tab 12/13/17 10:00 01/08/18 09:56 Vitamins (Sjr) - PO Not Given DAILY THEA Pseudoephedrine/Triprolidine 1 combo 12/12/17 15:32 Actifed - PO TID PRN NASAL CONGESTION Quetiapine Fumarate 50 mg 12/12/17 22:00 01/07/18 21:05 Seroquel - PO 50 mg HS THEA Administration Thiamine HCl 100 mg 12/12/17 22:00 01/07/18 21:05 Vitamin B1 - PO Not Given HS THEA Current Side Effect: No Lab tests ordered: No Lab tests reviewed: Yes Provider note:: Patient will copmlete this progarm on 01/09/18 and will meet his goals, he will continue to address his issues at [facility]. He gained insights into his addiction and motivated to continue maintain abstinence. Seroquel and Paxil well tolerated, patient reports feeling better, scripts provided for 30 days supply, patient is stable for discharge on 01/09/18. Total face to face time:: 25 Mental Status Exam - Mental Status Exam Alert and Oriented to: Time, Place, Person Cognitive Function: Good Patient Appearance: Well Groomed Mood: Hopeful Affect: Appropriate, Mood Congruent Patient Behavior: Appropriate, Cooperative Speech Pattern: Clear Voice Loudness: Normal Thought Process: Intact, Goal Oriented Thought Disorder: Not Present Hallucinations: Denies Suicidal Ideation: Denies Homicidal Ideation: Denies Insight/Judgement: Good Sleep: Well Appetite: Good Muscle strength/Tone: Normal Psychiatric Treatment Plan - Problem List (1) Alcohol dependence Current Visit: No (2) Cocaine dependence Current Visit: No Qualifiers: (3) Nicotine dependence Current Visit: No Qualifiers: Nicotine product type: cigarettes Substance use status: in withdrawal Qualified Code(s): F17.213 - Nicotine dependence, cigarettes, with withdrawal (4) Bipolar disorder Current Visit: No Comment: self reports. (5) Hepatitis C Current Visit: No Qualifiers: Viral hepatitis chronicity: chronic (6) Opioid dependence on agonist therapy Current Visit: No
[2018-01-08] MEDS: THIAMINE HCL 100 MG TABLET (FP) PO SCH (21:13)
[2018-01-08] MEDS: QUEtiapine FUMARATE 50 MG TABLET PO SCH (21:13)
[2018-01-09] MEDS ORDERED: METHADONE HCL 10 MG TABLET ONE (03:07)
[2018-01-09] MEDS ORDERED: METHADONE HCL 40 MG DISPERSABLE TABLET ONE (03:07)
[2018-01-09] MEDS: METHADONE 40 MG, METHADONE 30 MG PO SCH (06:05)
[2018-01-09 06:32] VITALS: BP 122/95; PULSE 78; TEMP 98
[2018-01-09] MEDS: PARoxetine HCL 10 MG TABLET (FP) PO SCH (09:51)
[2018-01-09] MEDS: NICOTINE 21 MG/24 HOURS TOPICAL PATCH TD SCH (09:51)
[2018-01-09] MEDS: PRENATAL VITAMINS W/ FOLIC ACID TABLET (FP) PO SCH (09:52)
== END 2018-01-09 10:25 | disposition home or self-care (01) | DRG 772 ==
LOC: YASAS 13:01 → Y5N 13:02
PROVIDERS: ADMIT Psychiatry & Neurology Psychiatry; ATTEND Psychiatry & Neurology Psychiatry
PROC: HZ42ZZZ Group Counseling for Substance Abuse Treatment, Cognitive-Behavioral (ICD-10-PCS; principal; 2017-12-12)
DX: F11.20 Opioid dependence, uncomplicated (principal); F10.20 Alcohol dependence, uncomplicated; F14.20 Cocaine dependence, uncomplicated; F17.213 Nicotine dependence, cigarettes, with withdrawal; F31.9 Bipolar disorder, unspecified; B18.2 Chronic viral hepatitis C; A69.0 Necrotizing ulcerative stomatitis

== ENCOUNTER 2018-03-02 14:35 | Inpatient (IN) | payer OTHER ==
[2018-03-02 15:40] VITALS: BMI 22.4
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
[2018-03-02] MEDS ORDERED: MELATONIN 5 MG TABLETS PO PRN (22:00)
[2018-03-02] MEDS ORDERED: IBUPROFEN 400 MG TABLET (FP) PO PRN (22:49)
[2018-03-02] MEDS ORDERED: chlordiazePOXIDE HCL 25 MG CAPSULE PO PRN (22:49)
[2018-03-02] MEDS ORDERED: MENTHOL/PHENOL 1 EACH UD MM PRN (22:49)
[2018-03-02] MEDS ORDERED: MAGNESIUM HYDROX 2400MG/30ML ORAL SUSPENSION 30 ML CUP PO PRN (22:49)
[2018-03-02] MEDS ORDERED: guaiFENesin/D-METHORPHAN HB 10 ML UNIT-DOSE CUPS PO PRN (22:49)
[2018-03-02] MEDS ORDERED: MAG HYDROX/AL HYDROX/SIMETH 30 ML UNIT-DOSE CUP PO PRN (22:49)
[2018-03-02] MEDS ORDERED: P-EPHED 60MG/TRIPROLIDI 2.5MG TABLET PO PRN (22:49)
[2018-03-02] MEDS ORDERED: ACETAMINOPHEN 325 MG TABLET (FP) PO PRN (22:49)
[2018-03-02] MEDS ORDERED: LOPERAMIDE HCL 2 MG CAPSULE PO PRN (22:49)
[2018-03-02] MEDS ORDERED: MAGNESIUM CITRATE 300 ML BOTTLE PO PRN (22:49)
[2018-03-02] MEDS ORDERED: NICOTINE POLACRILEX 2 MG GUM BUC PRN (22:53)
[2018-03-03] MEDS: chlordiazePOXIDE HCL 25 MG CAPSULE PO SCH ×3 (00:53→10:13)
[2018-03-03] MEDS ORDERED: METHADONE HCL 10 MG TABLET PO SCH (07:45)
[2018-03-03] MEDS ORDERED: METHADONE HCL 40 MG DISPERSABLE TABLET ONE (08:24)
[2018-03-03] MEDS ORDERED: METHADONE HCL 10 MG TABLET ONE (08:24)
[2018-03-03 09:49] LABS: HEMATOCRIT 38.6 % (35.4-49); HEMOGLOBIN 12.7 GM/dL (11.7-16.9); MCH 28.8 pg (25.7-33.7); MEAN CELL VOLUME 87.4 fl (80-96); MEAN PLT VOLUME 9.4 fl (7.5-11.1); PLATELET COUNT 131 K/MM3 (134-434); RBC 4.41 M/mm3 (4.00-5.60); RDW 14.3 % (11.9-15.9); WHITE BLOOD COUNT 2.8 K/mm3 (4.0-10.0)
[2018-03-03] MEDS: PRENATAL VITAMINS W/ FOLIC ACID TABLET (FP) PO SCH (10:13)
[2018-03-03] MEDS: METHADONE 40 MG, METHADONE 30 MG PO SCH (10:13)
[2018-03-03] MEDS: NICOTINE 21 MG/24 HOURS TOPICAL PATCH TD SCH (10:14)
[2018-03-03] MEDS ORDERED: diazePAM 5 MG TABLET PO SCH (11:08)
--- NOTE | 2018-03-03 11:29 | EKG ---
Test Reason : Blood Pressure : / mmHG Vent. Rate : 050 BPM Atrial Rate : 050 BPM P-R Int : 146 ms QRS Dur : 086 ms QT Int : 508 ms P-R-T Axes : 044 077 060 degrees QTc Int : 463 ms SINUS BRADYCARDIA MINIMAL VOLTAGE CRITERIA FOR LVH, MAY BE NORMAL VARIANT NONSPECIFIC T WAVE ABNORMALITY BORDERLINE ECG Confirmed by MD NORI, JOSEMANUEL ([id number]) on 03/03/2018 11:29:19 AM Referred By: Confirmed By:JOSEMANUEL JULIO MD
--- NOTE | 2018-03-03 11:42 | PN ---
S CIWA - CIWA Score Nausea/Vomitin-Mild Nausea/No Vomiting Muscle Tremors: 4-Moderate,w/Arms Extend Anxiety: 3 Agitation: 3 Paroxysmal Sweats: 1-Minimal Palms Moist Orientation: 0-Oriented Tacttile Disturbances: 1-Very Mild Itch/Numbness Auditory Disturbances: 0-None Visual Disturbances: 0-None Headache: 0-None Present CIWA-Ar Total Score: 13 BHS Progress Note (SOAP) Subjective: sweat tremor restlessness c/o librium not working for alcohol detox Objective: 03/03/18 11:41 Vital Signs Temperature 97.7 F 03/03/18 09:15 Pulse Rate 51 L 03/03/18 09:15 Respiratory Rate 18 03/03/18 09:15 Blood Pressure 133/67 03/03/18 09:15 O2 Sat by Pulse Oximetry (%) Laboratory Last Values WBC 2.8 K/mm3 (4.0-10.0) L 03/03/18 07:00 RBC 4.41 M/mm3 (4.00-5.60) 03/03/18 07:00 Hgb 12.7 GM/dL (11.7-16.9) 03/03/18 07:00 Hct 38.6 % (35.4-49) 03/03/18 07:00 MCV 87.4 fl (80-96) 03/03/18 07:00 MCH 28.8 pg (25.7-33.7) 03/03/18 07:00 MCHC 33.0 g/dl (32.0-35.9) 03/03/18 07:00 RDW 14.3 % (11.9-15.9) 03/03/18 07:00 Plt Count 131 K/MM3 (134-434) L 03/03/18 07:00 MPV 9.4 fl (7.5-11.1) 03/03/18 07:00 lab noted Assessment: 03/03/18 11:41 withdrawal sx valium regimen Plan: continue detox begin valium regimen
[2018-03-03] MEDS: diazePAM 5 MG TABLET PO PRN ×2 (11:56→16:54)
[2018-03-03 12:02] LABS: CHLORIDE 105 mmol/L (98-107); POTASSIUM 3.9 mmol/L (3.5-5.1); SODIUM 142 mmol/L (136-145)
[2018-03-03 12:11] LABS: ALBUMIN 3.2 g/dl (3.4-5.0); ALK PHOS 82 U/L (45-117); ANION GAP 7 (8-16); BILIRUBIN,TOTAL 0.5 mg/dL (0.2-1.0); BLOOD UREA NITROGEN 12 mg/dL (7-18); CALCIUM 8.6 mg/dL (8.5-10.1); CO2 30 mmol/L (21-32); CREATININE 0.7 mg/dL (0.7-1.3); GLUCOSE,RANDOM 81 mg/dL (74-106); SGOT/AST 47 U/L (15-37); SGPT/ALT 59 U/L (12-78)
[2018-03-03] MEDS: diazePAM 5 MG TABLET PO SCH ×2 (14:14→22:06)
--- NOTE | 2018-03-03 15:00 | CONSULT ---
[facility] Psychiatric Consult - Data Date of interview: 03/03/18 Admission source: [facility] Identifying data: Patient is a 42 year old single male, father of two, unemployed, homeless, and is supported by food stamps. This is one of multiple admissions for patient. Pt admitted for alcohol and benzodiazepine dependence. Substance Abuse History: Substance & Tx. History. Hx Alcohol Use: Yes. Hx Substance Use: Yes. Substance Use Type: Alcohol, Cocaine, Heroin, Tranquilizers. Hx Substance Use Treatment: Yes (Last detox [facility] two months ago) . - Substances Abused. Alcohol. Route: Oral. Frequency: Daily. Amount used: Vodka - 3 pints. Age of first use: 17. Date of Last Use: 03/01/18. Heroin. Route: Injection. Frequency: Daily. Amount used: 2-3 bags. Age of first use: 21. Date of Last Use: 03/01/18. Alprazolam (Xanax). Route: Oral. Frequency: Daily. Amount used: 3 sticks (6mg). Age of first use: 23. Date of Last Use: 03/01/18 Medical History: Hep C Psychiatric History: Patient reports multiple psychiatric hospitalizations, most recently ten years ago. Pt. unable to recall the names of hospitals. As per previous entries, patient reported psychiatric hospitalizations to [facility] as an 10 year old due to hyperactivity. Pt. is also known to [email or web address] Pt. denies current OPD. Pt. reports h/o accepting paxil and seroquel but reports current nonadherence to medications. Reports most recently taking psychotroic medications one month ago. Pt. requesting seroquel. Pt. denies h/o suicide attempt. Physical/Sexual Abuse/Trauma History: Denies. Mental Status Exam - Mental Status Exam Alert and Oriented to: Time, Place, Person Cognitive Function: Good Patient Appearance: Well Groomed Mood: Euthymic Affect: Mood Congruent Patient Behavior: Cooperative Speech Pattern: Appropriate Voice Loudness: Normal Thought Process: Intact, Goal Oriented Thought Disorder: Not Present Hallucinations: Denies Suicidal Ideation: Denies Homicidal Ideation: Denies Insight/Judgement: Poor Sleep: Poorly Appetite: Fair Muscle strength/Tone: Normal Gait/Station: Normal Psychiatric Findings - Problem List ([place] 1, 2,3) (1) Alcohol dependence with uncomplicated withdrawal Current Visit: Yes Status: Acute (2) Cocaine dependence Current Visit: Yes Status: Acute Qualifiers: Substance use status: uncomplicated Qualified Code(s): F14.20 - Cocaine dependence, uncomplicated (3) Nicotine dependence Current Visit: Yes Status: Acute Qualifiers: Nicotine product type: cigarettes Substance use status: in withdrawal Qualified Code(s): F17.213 - Nicotine dependence, cigarettes, with withdrawal (4) Sedative hypnotic or anxiolytic dependence Current Visit: Yes Status: Acute (5) Hepatitis C Current Visit: Yes Status: Chronic Qualifiers: Viral hepatitis chronicity: chronic (6) Substance-induced sleep disorder Current Visit: Yes Status: Acute (7) Bipolar disorder Current Visit: No Status: Chronic Comment: self reports. - Initial Treatment Plan Initial Treatment Plan: Psychoeducation provided. Detoxification in progress. Seroquel 50mg qhs ordered. Patient is not interested in restart paxil. Benefits and side effects discussed. Verbal consent given.
[2018-03-03] MEDS: hydrOXYzine PAMOATE 50 MG CAPSULE (FP) PO PRN (22:06)
[2018-03-03] MEDS: THIAMINE HCL 100 MG TABLET (FP) PO SCH (22:06)
[2018-03-03] MEDS ORDERED: chlordiazePOXIDE HCL 25 MG CAPSULE PO SCH (23:00)
[2018-03-04] MEDS: diazePAM 5 MG TABLET PO PRN ×3 (03:29→17:41)
[2018-03-04] MEDS ORDERED: METHADONE HCL 40 MG DISPERSABLE TABLET ONE (03:59)
[2018-03-04] MEDS ORDERED: METHADONE HCL 10 MG TABLET ONE (04:00)
[2018-03-04] MEDS: METHADONE 40 MG, METHADONE 30 MG PO SCH (05:20)
[2018-03-04 09:45] LABS: URINE APPEARANCE CLEAR; URINE BILIRUBIN NEGATIVE (<2.0 mg/dL); URINE COLOR YELLOW; URINE GLUCOSE (UA) NEGATIVE (NEGATIVE); URINE KETONE NEGATIVE (NEGATIVE); URINE LEUK ESTERASE NEGATIVE (NEGATIVE); URINE NITRITE NEGATIVE (NEGATIVE); URINE PROTEIN NEGATIVE (NEGATIVE); URINE UROBILINOGEN 4.0 E.U/dl mg/dL (0.2-1.0)
--- NOTE | 2018-03-04 10:24 | PN ---
S CIWA - CIWA Score Nausea/Vomitin-No Nausea/No Vomiting Muscle Tremors: 3 Anxiety: 4-Mod. Anxious/Guarded Agitation: 3 Paroxysmal Sweats: 1-Minimal Palms Moist Orientation: 0-Oriented Tacttile Disturbances: 0-None Auditory Disturbances: 0-None Visual Disturbances: 0-None Headache: 1-Very Mild CIWA-Ar Total Score: 12 BHS Progress Note (SOAP) Subjective: anxiety restlessness irritable trouble sleep at night Objective: 03/04/18 10:22 Vital Signs Temperature 95.7 F L 03/04/18 09:17 Pulse Rate 55 L 03/04/18 09:17 Respiratory Rate 20 03/04/18 09:17 Blood Pressure 127/70 03/04/18 09:17 O2 Sat by Pulse Oximetry (%) Laboratory Last Values WBC 2.8 K/mm3 (4.0-10.0) L 03/03/18 07:00 RBC 4.41 M/mm3 (4.00-5.60) 03/03/18 07:00 Hgb 12.7 GM/dL (11.7-16.9) 03/03/18 07:00 Hct 38.6 % (35.4-49) 03/03/18 07:00 MCV 87.4 fl (80-96) 03/03/18 07:00 MCH 28.8 pg (25.7-33.7) 03/03/18 07:00 MCHC 33.0 g/dl (32.0-35.9) 03/03/18 07:00 RDW 14.3 % (11.9-15.9) 03/03/18 07:00 Plt Count 131 K/MM3 (134-434) L 03/03/18 07:00 MPV 9.4 fl (7.5-11.1) 03/03/18 07:00 Sodium 142 mmol/L (136-145) 03/03/18 07:00 Potassium 3.9 mmol/L (3.5-5.1) 03/03/18 07:00 Chloride 105 mmol/L (98-107) 03/03/18 07:00 Carbon Dioxide 30 mmol/L (21-32) 03/03/18 07:00 Anion Gap 7 (8-16) L 03/03/18 07:00 BUN 12 mg/dL (7-18) 03/03/18 07:00 Creatinine 0.7 mg/dL (0.7-1.3) 03/03/18 07:00 Creat Clearance w eGFR > 60 (>60) 03/03/18 07:00 Random Glucose 81 mg/dL (74-106) 03/03/18 07:00 Calcium 8.6 mg/dL (8.5-10.1) 03/03/18 07:00 Total Bilirubin 0.5 mg/dL (0.2-1.0) 03/03/18 07:00 AST 47 U/L (15-37) H 03/03/18 07:00 ALT 59 U/L (12-78) 03/03/18 07:00 Alkaline Phosphatase 82 U/L (45-117) 03/03/18 07:00 Total Protein 6.0 g/dl (6.4-8.2) L 03/03/18 07:00 Albumin 3.2 g/dl (3.4-5.0) L 03/03/18 07:00 Urine Color Yellow 03/04/18 07:00 Urine Appearance Clear 03/04/18 07:00 Urine pH 7.0 (5.0-8.0) D 03/04/18 07:00 Ur Specific [place] 1.015 (1.001-1.035) 03/04/18 07:00 Urine Protein Negative (NEGATIVE) 03/04/18 07:00 Urine Glucose (UA) Negative (NEGATIVE) 03/04/18 07:00 Urine Ketones Negative (NEGATIVE) 03/04/18 07:00 Urine Blood Negative (NEGATIVE) 03/04/18 07:00 Urine Nitrite Negative (NEGATIVE) 03/04/18 07:00 Urine Bilirubin Negative (<2.0 mg/dL) 03/04/18 07:00 Urine Urobilinogen 4.0 e.u/dl mg/dL (0.2-1.0) 03/04/18 07:00 Ur Leukocyte Esterase Negative (NEGATIVE) 03/04/18 07:00 RPR Titer Nonreactive (NONREACTIVE) 03/03/18 07:00 lab noted Assessment: 03/04/18 10:23 withdrawal sx Plan: continue detox
[2018-03-04] MEDS: diazePAM 5 MG TABLET PO SCH ×2 (10:32→22:09)
[2018-03-04] MEDS: PRENATAL VITAMINS W/ FOLIC ACID TABLET (FP) PO SCH (10:33)
[2018-03-04] MEDS: NICOTINE 21 MG/24 HOURS TOPICAL PATCH TD SCH (10:33)
[2018-03-04] MEDS: hydrOXYzine PAMOATE 50 MG CAPSULE (FP) PO PRN (17:41)
[2018-03-04] MEDS: THIAMINE HCL 100 MG TABLET (FP) PO SCH (22:09)
[2018-03-04] MEDS ORDERED: chlordiazePOXIDE 5 MG CAPSULE PO SCH (23:00)
[2018-03-05] MEDS ORDERED: METHADONE HCL 40 MG DISPERSABLE TABLET ONE (04:37)
[2018-03-05] MEDS ORDERED: METHADONE HCL 10 MG TABLET ONE (04:39)
[2018-03-05] MEDS: METHADONE 40 MG, METHADONE 30 MG PO SCH (05:54)
[2018-03-05] MEDS: diazePAM 5 MG TABLET PO PRN (05:56)
--- NOTE | 2018-03-05 09:48 | PN ---
[facility] Progress Note (SOAP) Subjective: FEELING BETTER NO TREMOR LESS SWEAT SLEEP BETTER AT NIGHT SOCIAL WITH PEERS IN DAY ROOM DISCUSS AFETERCARE Objective: 03/05/18 09:44 Vital Signs Temperature 96.8 F L 03/05/18 07:57 Pulse Rate 56 L 03/05/18 07:57 Respiratory Rate 18 03/05/18 07:57 Blood Pressure 114/73 03/05/18 07:57 O2 Sat by Pulse Oximetry (%) Laboratory Last Values WBC 2.8 K/mm3 (4.0-10.0) L 03/03/18 07:00 RBC 4.41 M/mm3 (4.00-5.60) 03/03/18 07:00 Hgb 12.7 GM/dL (11.7-16.9) 03/03/18 07:00 Hct 38.6 % (35.4-49) 03/03/18 07:00 MCV 87.4 fl (80-96) 03/03/18 07:00 MCH 28.8 pg (25.7-33.7) 03/03/18 07:00 MCHC 33.0 g/dl (32.0-35.9) 03/03/18 07:00 RDW 14.3 % (11.9-15.9) 03/03/18 07:00 Plt Count 131 K/MM3 (134-434) L 03/03/18 07:00 MPV 9.4 fl (7.5-11.1) 03/03/18 07:00 Sodium 142 mmol/L (136-145) 03/03/18 07:00 Potassium 3.9 mmol/L (3.5-5.1) 03/03/18 07:00 Chloride 105 mmol/L (98-107) 03/03/18 07:00 Carbon Dioxide 30 mmol/L (21-32) 03/03/18 07:00 Anion Gap 7 (8-16) L 03/03/18 07:00 BUN 12 mg/dL (7-18) 03/03/18 07:00 Creatinine 0.7 mg/dL (0.7-1.3) 03/03/18 07:00 Creat Clearance w eGFR > 60 (>60) 03/03/18 07:00 Random Glucose 81 mg/dL (74-106) 03/03/18 07:00 Calcium 8.6 mg/dL (8.5-10.1) 03/03/18 07:00 Total Bilirubin 0.5 mg/dL (0.2-1.0) 03/03/18 07:00 AST 47 U/L (15-37) H 03/03/18 07:00 ALT 59 U/L (12-78) 03/03/18 07:00 Alkaline Phosphatase 82 U/L (45-117) 03/03/18 07:00 Total Protein 6.0 g/dl (6.4-8.2) L 03/03/18 07:00 Albumin 3.2 g/dl (3.4-5.0) L 03/03/18 07:00 Urine Color Yellow 03/04/18 07:00 Urine Appearance Clear 03/04/18 07:00 Urine pH 7.0 (5.0-8.0) D 03/04/18 07:00 Ur Specific [place] 1.015 (1.001-1.035) 03/04/18 07:00 Urine Protein Negative (NEGATIVE) 03/04/18 07:00 Urine Glucose (UA) Negative (NEGATIVE) 03/04/18 07:00 Urine Ketones Negative (NEGATIVE) 03/04/18 07:00 Urine Blood Negative (NEGATIVE) 03/04/18 07:00 Urine Nitrite Negative (NEGATIVE) 03/04/18 07:00 Urine Bilirubin Negative (<2.0 mg/dL) 03/04/18 07:00 Urine Urobilinogen 4.0 e.u/dl mg/dL (0.2-1.0) 03/04/18 07:00 Ur Leukocyte Esterase Negative (NEGATIVE) 03/04/18 07:00 RPR Titer Nonreactive (NONREACTIVE) 03/03/18 07:00 LAB NOTED DISCUSS SUBSTANCE MISUSE RELATED HEALTH ISSUES ENCOURAGE THE PATIENT FOLLOW UP WITH [facility] 03/05/18 09:46 Assessment: 03/05/18 09:48 MILD WITHDRAWAL SX Plan: MEDICALLY SUPERVISED DETOX
[2018-03-05 10:20] VITALS: BP 111/62; PULSE 49; TEMP 97.2
[2018-03-05] MEDS: PRENATAL VITAMINS W/ FOLIC ACID TABLET (FP) PO SCH (10:23)
[2018-03-05] MEDS: NICOTINE 21 MG/24 HOURS TOPICAL PATCH TD SCH (10:23)
[2018-03-05] MEDS: diazePAM 5 MG TABLET PO SCH (10:23)
--- NOTE | 2018-03-05 10:25 | DS ---
[facility] Detox Discharge Summary Admission Date: 03/02/18 Discharge Date: 03/05/18 - History Present History: Alcohol Dependence Additional Comments: 42 years old male admitted on 03/02/18 for alcohol withdrawal sx preferred to start recovery process today at [facility] patient denies alcohol withdrawal sx feeling ready to begin rehab today alert oriented x 3 no acute distress - Physical Exam Results Vital Signs: Vital Signs Temperature 97.2 F L 03/05/18 10:19 Pulse Rate 49 L 03/05/18 10:19 Respiratory Rate 18 03/05/18 10:19 Blood Pressure 111/62 03/05/18 10:19 O2 Sat by Pulse Oximetry (%) Pertinent Admission Physical Exam Findings: alcohol withdrawal sx Vital Signs Temperature 97.2 F L 03/05/18 10:19 Pulse Rate 49 L 03/05/18 10:19 Respiratory Rate 18 03/05/18 10:19 Blood Pressure 111/62 03/05/18 10:19 O2 Sat by Pulse Oximetry (%) Laboratory Last Values WBC 2.8 K/mm3 (4.0-10.0) L 03/03/18 07:00 RBC 4.41 M/mm3 (4.00-5.60) 03/03/18 07:00 Hgb 12.7 GM/dL (11.7-16.9) 03/03/18 07:00 Hct 38.6 % (35.4-49) 03/03/18 07:00 MCV 87.4 fl (80-96) 03/03/18 07:00 MCH 28.8 pg (25.7-33.7) 03/03/18 07:00 MCHC 33.0 g/dl (32.0-35.9) 03/03/18 07:00 RDW 14.3 % (11.9-15.9) 03/03/18 07:00 Plt Count 131 K/MM3 (134-434) L 03/03/18 07:00 MPV 9.4 fl (7.5-11.1) 03/03/18 07:00 Sodium 142 mmol/L (136-145) 03/03/18 07:00 Potassium 3.9 mmol/L (3.5-5.1) 03/03/18 07:00 Chloride 105 mmol/L (98-107) 03/03/18 07:00 Carbon Dioxide 30 mmol/L (21-32) 03/03/18 07:00 Anion Gap 7 (8-16) L 03/03/18 07:00 BUN 12 mg/dL (7-18) 03/03/18 07:00 Creatinine 0.7 mg/dL (0.7-1.3) 03/03/18 07:00 Creat Clearance w eGFR > 60 (>60) 03/03/18 07:00 Random Glucose 81 mg/dL (74-106) 03/03/18 07:00 Calcium 8.6 mg/dL (8.5-10.1) 03/03/18 07:00 Total Bilirubin 0.5 mg/dL (0.2-1.0) 03/03/18 07:00 AST 47 U/L (15-37) H 03/03/18 07:00 ALT 59 U/L (12-78) 03/03/18 07:00 Alkaline Phosphatase 82 U/L (45-117) 03/03/18 07:00 Total Protein 6.0 g/dl (6.4-8.2) L 03/03/18 07:00 Albumin 3.2 g/dl (3.4-5.0) L 03/03/18 07:00 Urine Color Yellow 03/04/18 07:00 Urine Appearance Clear 03/04/18 07:00 Urine pH 7.0 (5.0-8.0) D 03/04/18 07:00 Ur Specific [place] 1.015 (1.001-1.035) 03/04/18 07:00 Urine Protein Negative (NEGATIVE) 03/04/18 07:00 Urine Glucose (UA) Negative (NEGATIVE) 03/04/18 07:00 Urine Ketones Negative (NEGATIVE) 03/04/18 07:00 Urine Blood Negative (NEGATIVE) 03/04/18 07:00 Urine Nitrite Negative (NEGATIVE) 03/04/18 07:00 Urine Bilirubin Negative (<2.0 mg/dL) 03/04/18 07:00 Urine Urobilinogen 4.0 e.u/dl mg/dL (0.2-1.0) 03/04/18 07:00 Ur Leukocyte Esterase Negative (NEGATIVE) 03/04/18 07:00 RPR Titer Nonreactive (NONREACTIVE) 03/03/18 07:00 lab noted - Treatment Hospital Course: Detox Protocol Followed, Detoxed Safely, Responded well, Discharged Condition Good, Rehab Referral Accepted Patient has Accepted a Rehab Referral to: [facility] - Medication Discharge Medications: Ambulatory Orders Paroxetine HCl [Paxil -] 20 mg PO DAILY #30 tablet 11/09/17 Quetiapine Fumarate [Seroquel] 100 mg PO HS #30 tablet 11/09/17 Paroxetine HCl [Paxil -] 10 mg PO DAILY #30 tablet 01/08/18 Quetiapine Fumarate [Seroquel -] 50 mg PO HS #30 tablet 01/08/18 - Diagnosis (1) Alcohol dependence with uncomplicated withdrawal Status: Acute (2) Nicotine dependence Status: Acute Qualifiers: Nicotine product type: cigarettes Substance use status: in withdrawal Qualified Code(s): F17.213 - Nicotine dependence, cigarettes, with withdrawal (3) Hepatitis C Status: Chronic Qualifiers: Viral hepatitis chronicity: chronic Hepatic coma status: without hepatic coma Qualified Code(s): B18.2 - Chronic viral hepatitis C (4) PPD positive Status: Resolved - AMA Did Patient Leave Against Medical Advice: No
[2018-03-05] MEDS ORDERED: chlordiazePOXIDE HCL 10 MG CAPSULE PO SCH (23:00)
[2018-03-06] MEDS ORDERED: diazePAM 5 MG TABLET PO SCH (06:00)
== END 2018-03-05 12:10 | disposition other institution (70) | DRG 773 ==
LOC: YASAS 14:35 → Y6N 19:31
PROVIDERS: ADMIT Surgery; ATTEND Surgery
PROC: HZ2ZZZZ Detoxification Services for Substance Abuse Treatment (ICD-10-PCS; principal; 2018-03-02)
DX: F10.230 Alcohol dependence with withdrawal, uncomplicated (principal); F13.230 Sedative, hypnotic or anxiolytic dependence with withdrawal, uncomplicated; F11.20 Opioid dependence, uncomplicated; F14.20 Cocaine dependence, uncomplicated; F17.213 Nicotine dependence, cigarettes, with withdrawal; F31.9 Bipolar disorder, unspecified; F32.9 Major depressive disorder, single episode, unspecified; B18.2 Chronic viral hepatitis C; F19.282 Other psychoactive substance dependence with psychoactive substance-induced sleep disorder; R63.4 Abnormal weight loss; Z68.22 Body mass index [BMI] 22.0-22.9, adult
CPT/HCPCS: 36415; 80053; 81003; 85027; 86593; 93005; 93010

== ENCOUNTER 2018-06-09 15:19 | Inpatient (IN) | payer OTHER ==
[2018-06-09 18:11] VITALS: BMI 18.6
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
[2018-06-09] MEDS ORDERED: guaiFENesin/D-METHORPHAN HB 10 ML UNIT-DOSE CUPS PO PRN (20:23)
[2018-06-09] MEDS ORDERED: MAGNESIUM CITRATE 300 ML BOTTLE PO PRN (20:23)
[2018-06-09] MEDS ORDERED: MENTHOL/PHENOL 1 EACH UD MM PRN (20:23)
[2018-06-09] MEDS ORDERED: IBUPROFEN 400 MG TABLET (FP) PO PRN (20:23)
[2018-06-09] MEDS ORDERED: NICOTINE POLACRILEX 2 MG GUM BUC PRN (20:23)
[2018-06-09] MEDS ORDERED: ACETAMINOPHEN 325 MG TABLET (FP) PO PRN (20:23)
[2018-06-09] MEDS ORDERED: P-EPHED 60MG/TRIPROLIDI 2.5MG TABLET PO PRN (20:23)
[2018-06-09] MEDS ORDERED: LOPERAMIDE HCL 2 MG CAPSULE PO PRN (20:23)
[2018-06-09] MEDS ORDERED: MAGNESIUM HYDROX 2400MG/30ML ORAL SUSPENSION 30 ML CUP PO PRN (20:23)
[2018-06-09] MEDS ORDERED: MAG HYDROX/AL HYDROX/SIMETH 30 ML UNIT-DOSE CUP PO PRN (20:23)
[2018-06-09] MEDS ORDERED: METHADONE HCL 10 MG TABLET (FOR DETOX USE ONLY) PO ONE ×2 (20:23→23:00)
[2018-06-09] MEDS ORDERED: diazePAM 5 MG TABLET PO ONE (20:45)
[2018-06-09] MEDS ORDERED: MELATONIN 5 MG TABLETS PO PRN (22:00)
[2018-06-09] MEDS: THIAMINE HCL 100 MG TABLET (FP) PO SCH (22:35)
[2018-06-09] MEDS: diazePAM 5 MG TABLET PO SCH (22:38)
[2018-06-10 00:37] LABS: URINE APPEARANCE CLEAR; URINE BILIRUBIN NEGATIVE (<2.0 mg/dL); URINE COLOR LTYELLOW; URINE GLUCOSE (UA) NEGATIVE (NEGATIVE); URINE KETONE NEGATIVE (NEGATIVE); URINE LEUK ESTERASE NEGATIVE (NEGATIVE); URINE NITRITE NEGATIVE (NEGATIVE); URINE PROTEIN NEGATIVE (NEGATIVE); URINE UROBILINOGEN NEGATIVE mg/dL (0.2-1.0)
[2018-06-10] MEDS: diazePAM 5 MG TABLET PO PRN ×4 (03:09→21:16)
[2018-06-10] MEDS: diazePAM 5 MG TABLET PO SCH ×3 (06:02→22:41)
--- NOTE | 2018-06-10 09:25 | CONSULT ---
[facility] Psychiatric Consult - Data Date of interview: 06/10/18 Admission source: [facility] Identifying data: This is a 43 years old male, single, father of one, homeless, on PA support MAN WITH AN EXTENSIVE HISTORY OF HEROIN, ALCOHOL AND BENZODIAZEPINE DEPENDENCE IS HERE SEEKING DETOX AND REHAB SERVICES. HE WAS LAST HERE FOR DETOX/REHAB FROM 03/02/18-03/19/18. LONGEST PERIOD OF ILLICIT DRUG AND ALCOHOL ABSTINENCE HAS BEEN ONE YEAR. Exam Limitations: No Limitations Substance Abuse History: Smoking history: Current every day smoker. Have you smoked in the past 12 months: Yes. Aproximately how many cigarettes per day: 20. Cigars Per Day: 0. Hx Chewing Tobacco Use: No. Initiated information on smoking cessation: Yes. 'Breaking Loose' booklet given: 06/09/18. - Substance & Tx. History. Hx Alcohol Use: Yes. Hx Substance Use: Yes. Substance Use Type : Alcohol, Cocaine, Heroin, Tranquilizers. Hx Substance Use Treatment: Yes ( DETOX AND REHAB AT [facility]: 03/02/18-03/19/18). - Substances Abused. Heroin. Route: Injection. Frequency: Daily. Amount used: 10 BAGS. Age of first use: 23. Date of Last Use: 06/09/18. Alcohol. Route: Oral. Frequency: Daily. Amount used: 1 PINT OF LIQUOR. Age of first use: 17. Date of Last Use: . Alprazolam (Xanax). Route: Oral. Frequency: Daily. Amount used: 8MG. Age of first use: 23. Date of Last Use: 06/09/18. Crack. Route: Injection. Frequency: Daily. Amount used: $70. Age of first use: 23. Date of Last Use: 06/08/18 Medical History: Weight l;oss history, HepC+ Psychiatric History: pATIENT REPORTS HISTORY OF DEPRESSION AND ANXIETY, PER COMPUTER THERE IS A HISTORTY OF: Bipolar Disorder, PTSD,ADHD,. Patient reports no psychiatric hospitalization history, denies suicidal, himicidal hiustory, reports taking prior to admission: Seroquel 100mg po qhs. Paxil 20mg poqd Physical/Sexual Abuse/Trauma History: Denies Additional Comment: Seroquel 100mg po qhs. Paxil 20mg poqd Mental Status Exam - Mental Status Exam Alert and Oriented to: Person Cognitive Function: Fair Patient Appearance: Unkempt Mood: Sad Affect: Flat Patient Behavior: Appropriate Speech Pattern: Appropriate Voice Loudness: Mildly Soft/Quiet Thought Process: Circumstantial Thought Disorder: Being Controlled Hallucinations: Denies Suicidal Ideation: Denies Homicidal Ideation: Denies Insight/Judgement: Fair Sleep: Difficulty falling asleep Appetite: Weight loss Muscle strength/Tone: Mild Hypotonicity Gait/Station: Shuffling Additional Comments: Seroquel 100mg po qhs. Paxil 20mg poqd Psychiatric Findings - Problem List ([place] 1, 2,3) (1) Weight loss Current Visit: Yes Status: Acute (2) Alcohol dependence with uncomplicated withdrawal Current Visit: Yes Status: Chronic (3) Cocaine dependence Current Visit: Yes Status: Chronic Qualifiers: Substance use status: uncomplicated Qualified Code(s): F14.20 - Cocaine dependence, uncomplicated (4) Hepatitis C Current Visit: Yes Status: Chronic Qualifiers: Viral hepatitis chronicity: chronic Hepatic coma status: without hepatic coma Qualified Code(s): B18.2 - Chronic viral hepatitis C (5) Nicotine dependence Current Visit: Yes Status: Chronic Qualifiers: Nicotine product type: cigarettes Substance use status: in withdrawal Qualified Code(s): F17.213 - Nicotine dependence, cigarettes, with withdrawal (6) Opioid dependence with withdrawal Current Visit: Yes Status: Chronic (7) Opioid dependence with withdrawal Current Visit: Yes Status: Chronic (8) Sedative/hypnotic withdrawal without complication Current Visit: Yes Status: Chronic (9) PTSD (post-traumatic stress disorder) Current Visit: No Status: Acute (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 (14) Bipolar disorder Current Visit: No Status: Chronic Comment: self reports. (15) PPD positive Current Visit: No Status: Resolved - Initial Treatment Plan Initial Treatment Plan: Seroquel 100mg po qhs. Paxil 20mg poqd
[2018-06-10] MEDS ORDERED: METHADONE HCL 10 MG TABLET (FOR DETOX USE ONLY) PO SCH (10:00)
[2018-06-10] MEDS: PRENATAL VITAMINS W/ FOLIC ACID TABLET (FP) PO SCH (10:28)
[2018-06-10] MEDS: NICOTINE 21 MG/24 HOURS TOPICAL PATCH TD SCH (10:29)
[2018-06-10] MEDS: PARoxetine HCL 20 MG TABLET (FP) PO SCH (10:29)
--- NOTE | 2018-06-10 11:09 | PN ---
S CIWA - CIWA Score Nausea/Vomitin Muscle Tremors: 2 Anxiety: 3 Agitation: 2 Paroxysmal Sweats: 3 Orientation: 0-Oriented Tacttile Disturbances: 2-Mild Itch/Numbness/Burn Auditory Disturbances: 0-None Visual Disturbances: 0-None Headache: 0-None Present CIWA-Ar Total Score: 14 S COWS - Scale Resting Pulse: 0= NC 80 or Below Sweatin= Chills/Flushing Restless Observation: 1= Difficult to Sit Still Pupil Size: 1= Pupils >than Normal Bone or Joint Aches: 2= Severe Diffuse Aches Runny Nose/ Eye Tearin= Nasal Congestion GI Upset > 30mins: 2= Nausea/Diarrhea Tremor Observation of Outstretched Hands: 2= Slight Tremor Visible Yawning Observation: 0= None Anxiety or Irritability: 2=Irritable/Anxious Goose Flesh Skin: 0=Smooth Skin COWS Score: 12 S Progress Note (SOAP) Subjective: interrrupted sleep, sweats, diarrrhea, anxious Objective: 06/10/18 11:08 Vital Signs Temperature 97.7 F 06/10/18 09:25 Pulse Rate 58 L 06/10/18 09:25 Respiratory Rate 16 06/10/18 09:25 Blood Pressure 106/60 06/10/18 09:25 O2 Sat by Pulse Oximetry (%) Laboratory Tests 06/09/18 23:05 Urine Color Ltyellow Urine Appearance Clear Urine pH 6.0 Ur Specific [place] 1.011 Urine Protein Negative Urine Glucose (UA) Negative Urine Ketones Negative Urine Blood Negative Urine Nitrite Negative Urine Bilirubin Negative Urine Urobilinogen Negative Ur Leukocyte Esterase Negative pt aox3 , anxious, ambulating 06/10/18 11:09 06/10/18 11:10 Laboratory Tests 06/09/18 23:05 Urine Color Ltyellow Urine Appearance Clear Urine pH 6.0 Ur Specific [place] 1.011 Urine Protein Negative Urine Glucose (UA) Negative Urine Ketones Negative Urine Blood Negative Urine Nitrite Negative Urine Bilirubin Negative Urine Urobilinogen Negative Ur Leukocyte Esterase Negative pending labs Assessment: 06/10/18 11:09 withdrawal sx;s Plan: continue detox increase fluids f/up pending labs
--- NOTE | 2018-06-10 11:29 | EKG ---
Test Reason : Blood Pressure : / mmHG Vent. Rate : 073 BPM Atrial Rate : 073 BPM P-R Int : 126 ms QRS Dur : 088 ms QT Int : 396 ms P-R-T Axes : 049 067 044 degrees QTc Int : 436 ms NORMAL SINUS RHYTHM MINIMAL VOLTAGE CRITERIA FOR LVH, MAY BE NORMAL VARIANT BORDERLINE ECG WHEN COMPARED WITH ECG OF 02-MAR-2018 22:31, NO SIGNIFICANT CHANGE WAS FOUND Confirmed by WILFRID LANG, VELIA ([id number]) on 06/10/2018 11:29:14 AM Referred By: Confirmed By:VELIA YUEN MD
[2018-06-10] MEDS: hydrOXYzine PAMOATE 50 MG CAPSULE (FP) PO PRN (12:35)
[2018-06-10 14:24] LABS: HEMATOCRIT 38.2 % (35.4-49); HEMOGLOBIN 12.2 GM/dL (11.7-16.9); MCH 28.4 pg (25.7-33.7); MCHC 32.1 g/dl (32.0-35.9); MEAN CELL VOLUME 88.6 fl (80-96); MEAN PLT VOLUME 9.2 fl (7.5-11.1); PLATELET COUNT 159 K/MM3 (134-434); RBC 4.31 M/mm3 (4.00-5.60); RDW 15.5 % (11.9-15.9); WHITE BLOOD COUNT 2.6 K/mm3 (4.0-10.0)
[2018-06-10 15:06] LABS: ALBUMIN 3.1 g/dl (3.4-5.0); ALK PHOS 60 U/L (45-117); ANION GAP 8 MMOL/L (8-16); BILIRUBIN,TOTAL 0.6 mg/dL (0.2-1); BLOOD UREA NITROGEN 19 mg/dL (7-18); CALCIUM 8.4 mg/dL (8.5-10.1); CHLORIDE 101 mmol/L (98-107); CO2 30 mmol/L (21-32); CREATININE 0.9 mg/dL (0.55-1.3); GLUCOSE,RANDOM 117 mg/dL (74-106); POTASSIUM 3.7 mmol/L (3.5-5.1); SGOT/AST 44 U/L (15-37); SGPT/ALT 64 U/L (13-61); SODIUM 139 mmol/L (136-145); TOT PROT 6.4 g/dl (6.4-8.2)
[2018-06-10] MEDS ORDERED: TETRAHYDROZOLINE HCL EYE DROPS OU PRN (19:11)
--- NOTE | 2018-06-10 19:13 | PN ---
S Progress Note Note: Vital Signs Temperature 98.2 F 06/10/18 17:28 Pulse Rate 66 06/10/18 17:28 Respiratory Rate 18 06/10/18 17:28 Blood Pressure 107/60 06/10/18 17:28 O2 Sat by Pulse Oximetry (%) c/o eye irritation no changes in visual acuity , no discharge visine prn continue to monitor
[2018-06-10] MEDS: BACITRACIN 0.9 GM PACKET TP SCH (21:16)
[2018-06-10] MEDS: THIAMINE HCL 100 MG TABLET (FP) PO SCH (21:16)
[2018-06-10] MEDS: QUEtiapine FUMARATE 100 MG TABLET (FP) PO SCH (21:17)
[2018-06-11] MEDS: diazePAM 5 MG TABLET PO PRN ×4 (01:20→18:39)
[2018-06-11 02:41] LABS: RPR NONREACTIVE (NONREACTIVE)
[2018-06-11] MEDS: PARoxetine HCL 20 MG TABLET (FP) PO SCH (10:02)
[2018-06-11] MEDS: BACITRACIN 0.9 GM PACKET TP SCH ×2 (10:02→22:02)
[2018-06-11] MEDS: NICOTINE 21 MG/24 HOURS TOPICAL PATCH TD SCH (10:02)
[2018-06-11] MEDS: PRENATAL VITAMINS W/ FOLIC ACID TABLET (FP) PO SCH (10:02)
[2018-06-11] MEDS: METHADONE HCL 5 MG TABLET (FOR DETOX USE ONLY) PO SCH (10:02)
[2018-06-11] MEDS: diazePAM 5 MG TABLET PO SCH ×2 (10:02→22:02)
[2018-06-11] MEDS: hydrOXYzine PAMOATE 50 MG CAPSULE (FP) PO PRN (10:03)
--- NOTE | 2018-06-11 11:02 | PN ---
[facility] CIWA - CIWA Score Nausea/Vomitin-Mild Nausea/No Vomiting Muscle Tremors: 3 Anxiety: 2 Agitation: 2 Paroxysmal Sweats: 1-Minimal Palms Moist Orientation: 1-Uncertain about Date Tacttile Disturbances: 1-Very Mild Itch/Numbness Auditory Disturbances: 0-None Visual Disturbances: 0-None Headache: 1-Very Mild CIWA-Ar Total Score: 12 S COWS - Scale Resting Pulse: 1= ND 81-100 Sweatin= Chills/Flushing Restless Observation: 1= Difficult to Sit Still Pupil Size: 0= Normal to Room Light Bone or Joint Aches: 2= Severe Diffuse Aches Runny Nose/ Eye Tearin= Nasal Congestion GI Upset > 30mins: 2= Nausea/Diarrhea Tremor Observation of Outstretched Hands: 1= Tremor [place], Not Seen Yawning Observation: 1= 1-2x During Session Anxiety or Irritability: 1=Feels Anxious/Irritable Goose Flesh Skin: 0=Smooth Skin COWS Score: 11 [facility] Progress Note (SOAP) Subjective: body ache joints pain sweat tremor anxiety gi distress Objective: 06/11/18 11:05 Vital Signs Temperature 97.7 F 06/11/18 09:39 Pulse Rate 71 06/11/18 09:39 Respiratory Rate 18 06/11/18 09:39 Blood Pressure 106/61 06/11/18 09:39 O2 Sat by Pulse Oximetry (%) Laboratory Last Values WBC 2.6 K/mm3 (4.0-10.0) L 06/10/18 07:00 RBC 4.31 M/mm3 (4.00-5.60) 06/10/18 07:00 Hgb 12.2 GM/dL (11.7-16.9) 06/10/18 07:00 Hct 38.2 % (35.4-49) 06/10/18 07:00 MCV 88.6 fl (80-96) 06/10/18 07:00 MCH 28.4 pg (25.7-33.7) 06/10/18 07:00 MCHC 32.1 g/dl (32.0-35.9) 06/10/18 07:00 RDW 15.5 % (11.9-15.9) 06/10/18 07:00 Plt Count 159 K/MM3 (134-434) D 06/10/18 07:00 MPV 9.2 fl (7.5-11.1) 06/10/18 07:00 Sodium 139 mmol/L (136-145) 06/10/18 07:00 Potassium 3.7 mmol/L (3.5-5.1) 06/10/18 07:00 Chloride 101 mmol/L (98-107) 06/10/18 07:00 Carbon Dioxide 30 mmol/L (21-32) 06/10/18 07:00 Anion Gap 8 MMOL/L (8-16) 06/10/18 07:00 BUN 19 mg/dL (7-18) H 06/10/18 07:00 Creatinine 0.9 mg/dL (0.55-1.3) 06/10/18 07:00 Creat Clearance w eGFR > 60 (>60) 06/10/18 07:00 Random Glucose 117 mg/dL (74-106) H 06/10/18 07:00 Calcium 8.4 mg/dL (8.5-10.1) L 06/10/18 07:00 Total Bilirubin 0.6 mg/dL (0.2-1) 06/10/18 07:00 AST 44 U/L (15-37) H 06/10/18 07:00 ALT 64 U/L (13-61) H 06/10/18 07:00 Alkaline Phosphatase 60 U/L (45-117) 06/10/18 07:00 Total Protein 6.4 g/dl (6.4-8.2) 06/10/18 07:00 Albumin 3.1 g/dl (3.4-5.0) L 06/10/18 07:00 Urine Color Ltyellow 06/09/18 23:05 Urine Appearance Clear 06/09/18 23:05 Urine pH 6.0 (5.0-8.0) 06/09/18 23:05 Ur Specific [place] 1.011 (1.010-1.035) 06/09/18 23:05 Urine Protein Negative (NEGATIVE) 06/09/18 23:05 Urine Glucose (UA) Negative (NEGATIVE) 06/09/18 23:05 Urine Ketones Negative (NEGATIVE) 06/09/18 23:05 Urine Blood Negative (NEGATIVE) 06/09/18 23:05 Urine Nitrite Negative (NEGATIVE) 06/09/18 23:05 Urine Bilirubin Negative (<2.0 mg/dL) 06/09/18 23:05 Urine Urobilinogen Negative mg/dL (0.2-1.0) 06/09/18 23:05 Ur Leukocyte Esterase Negative (NEGATIVE) 06/09/18 23:05 RPR Titer Nonreactive (NONREACTIVE) 06/10/18 07:00 HIV 1&2 Antibody Screen Negative 06/10/18 07:00 HIV P24 Antigen Negative 06/10/18 07:00 lab noted repeat cbc 06/11/18 11:09 Assessment: 06/11/18 11:09 withdrawal sx Plan: continue detox
[2018-06-11] MEDS: QUEtiapine FUMARATE 100 MG TABLET (FP) PO SCH (22:02)
[2018-06-11] MEDS: THIAMINE HCL 100 MG TABLET (FP) PO SCH (22:02)
[2018-06-12] MEDS: diazePAM 5 MG TABLET PO PRN ×4 (02:00→18:19)
[2018-06-12] MEDS: PRENATAL VITAMINS W/ FOLIC ACID TABLET (FP) PO SCH (10:33)
[2018-06-12] MEDS: BACITRACIN 0.9 GM PACKET TP SCH ×2 (10:33→22:06)
[2018-06-12] MEDS: hydrOXYzine PAMOATE 50 MG CAPSULE (FP) PO PRN ×2 (10:34→21:04)
[2018-06-12] MEDS: NICOTINE 21 MG/24 HOURS TOPICAL PATCH TD SCH (10:34)
[2018-06-12] MEDS: diazePAM 5 MG TABLET PO SCH ×2 (10:34→22:06)
[2018-06-12] MEDS: PARoxetine HCL 20 MG TABLET (FP) PO SCH (10:34)
[2018-06-12] MEDS: METHADONE HCL 5 MG TABLET (FOR DETOX USE ONLY) PO SCH (10:34)
[2018-06-12 10:46] LABS: HEMATOCRIT 38.2 % (35.4-49); HEMOGLOBIN 12.7 GM/dL (11.7-16.9); MCH 29.5 pg (25.7-33.7); MCHC 33.1 g/dl (32.0-35.9); MEAN CELL VOLUME 89.1 fl (80-96); MEAN PLT VOLUME 9.8 fl (7.5-11.1); PLATELET COUNT 187 K/MM3 (134-434); RBC 4.29 M/mm3 (4.00-5.60); WHITE BLOOD COUNT 3.1 K/mm3 (4.0-10.0)
--- NOTE | 2018-06-12 13:39 | PN ---
[facility] Progress Note Note: PATIENT CONTINUES WITH DETOX REGIMEN. PATIENT IRRITABLE AND PACING IN HALLWAY. Vital Signs Temperature 96.8 F L 06/12/18 09:13 Pulse Rate 74 06/12/18 09:13 Respiratory Rate 20 06/12/18 09:13 Blood Pressure 106/62 06/12/18 09:13 O2 Sat by Pulse Oximetry (%) Laboratory Tests 06/09/18 06/10/18 06/10/18 23:05 07:00 07:00 WBC 2.6 L RBC 4.31 Hgb 12.2 Hct 38.2 MCV 88.6 MCH 28.4 MCHC 32.1 RDW 15.5 Plt Count 159 D MPV 9.2 Sodium 139 Potassium 3.7 Chloride 101 Carbon Dioxide 30 Anion Gap 8 BUN 19 H Creatinine 0.9 Creat Clearance w eGFR > 60 Random Glucose 117 H Calcium 8.4 L Total Bilirubin 0.6 AST 44 H ALT 64 H Alkaline Phosphatase 60 Total Protein 6.4 Albumin 3.1 L Urine Color Ltyellow Urine Appearance Clear Urine pH 6.0 Ur Specific [place] 1.011 Urine Protein Negative Urine Glucose (UA) Negative Urine Ketones Negative Urine Blood Negative Urine Nitrite Negative Urine Bilirubin Negative Urine Urobilinogen Negative Ur Leukocyte Esterase Negative RPR Titer HIV 1&2 Antibody Screen HIV P24 Antigen 06/10/18 06/12/18 07:00 07:00 WBC 3.1 L RBC 4.29 Hgb 12.7 Hct 38.2 MCV 89.1 MCH 29.5 MCHC 33.1 RDW 15.0 Plt Count 187 MPV 9.8 Sodium Potassium Chloride Carbon Dioxide Anion Gap BUN Creatinine Creat Clearance w eGFR Random Glucose Calcium Total Bilirubin AST ALT Alkaline Phosphatase Total Protein Albumin Urine Color Urine Appearance Urine pH Ur Specific [place] Urine Protein Urine Glucose (UA) Urine Ketones Urine Blood Urine Nitrite Urine Bilirubin Urine Urobilinogen Ur Leukocyte Esterase RPR Titer Nonreactive HIV 1&2 Antibody Screen Negative HIV P24 Antigen Negative ALERT AND ORIENTED X 3 SKIN WARM AND DRY CAR S1S2 RESP CTA BL EXT FULL ROM, NO EDEMA A/P WITHDRAWAL SX CONTINUE DETOX ENCOURAGE ORAL FLUIDS CONTINUE TO MONITOR
[2018-06-12] MEDS: QUEtiapine FUMARATE 100 MG TABLET (FP) PO SCH (22:06)
[2018-06-12] MEDS: THIAMINE HCL 100 MG TABLET (FP) PO SCH (22:06)
[2018-06-13] MEDS ORDERED: PARoxetine HCL 10 MG TABLET (FP) ONE (09:13)
[2018-06-13] MEDS ORDERED: METHADONE HCL 10 MG TABLET (FOR DETOX USE ONLY) PO SCH (10:00)
[2018-06-13] MEDS ORDERED: diazePAM 5 MG TABLET PO SCH (10:00)
[2018-06-13] MEDS: PRENATAL VITAMINS W/ FOLIC ACID TABLET (FP) PO SCH (10:20)
[2018-06-13] MEDS: PARoxetine HCL 20 MG TABLET (FP) PO SCH (10:20)
[2018-06-13] MEDS: BACITRACIN 0.9 GM PACKET TP SCH ×2 (10:20→22:08)
[2018-06-13] MEDS: NICOTINE 21 MG/24 HOURS TOPICAL PATCH TD SCH (10:22)
[2018-06-13] MEDS: hydrOXYzine PAMOATE 50 MG CAPSULE (FP) PO PRN ×2 (13:07→18:50)
--- NOTE | 2018-06-13 17:05 | PN ---
[facility] Progress Note (SOAP) Subjective: C/o diarrhea, shakes, and chills. Wants to leave AMA. Objective: A&O x 3. Pale. Mild tremors of hands. Gait steady. Vital Signs 06/13/18 06/13/18 14:07 17:42 Temperature 97.0 F L 98.6 F Pulse Rate 78 77 Respiratory 18 18 Rate Blood Pressure 107/72 113/67 Laboratory Last Values WBC 3.1 K/mm3 (4.0-10.0) L 06/12/18 07:00 RBC 4.29 M/mm3 (4.00-5.60) 06/12/18 07:00 Hgb 12.7 GM/dL (11.7-16.9) 06/12/18 07:00 Hct 38.2 % (35.4-49) 06/12/18 07:00 MCV 89.1 fl (80-96) 06/12/18 07:00 MCH 29.5 pg (25.7-33.7) 06/12/18 07:00 MCHC 33.1 g/dl (32.0-35.9) 06/12/18 07:00 RDW 15.0 % (11.9-15.9) 06/12/18 07:00 Plt Count 187 K/MM3 (134-434) 06/12/18 07:00 MPV 9.8 fl (7.5-11.1) 06/12/18 07:00 Sodium 139 mmol/L (136-145) 06/10/18 07:00 Potassium 3.7 mmol/L (3.5-5.1) 06/10/18 07:00 Chloride 101 mmol/L (98-107) 06/10/18 07:00 Carbon Dioxide 30 mmol/L (21-32) 06/10/18 07:00 Anion Gap 8 MMOL/L (8-16) 06/10/18 07:00 BUN 19 mg/dL (7-18) H 06/10/18 07:00 Creatinine 0.9 mg/dL (0.55-1.3) 06/10/18 07:00 Creat Clearance w eGFR > 60 (>60) 06/10/18 07:00 Random Glucose 117 mg/dL (74-106) H 06/10/18 07:00 Calcium 8.4 mg/dL (8.5-10.1) L 06/10/18 07:00 Total Bilirubin 0.6 mg/dL (0.2-1) 06/10/18 07:00 AST 44 U/L (15-37) H 06/10/18 07:00 ALT 64 U/L (13-61) H 06/10/18 07:00 Alkaline Phosphatase 60 U/L (45-117) 06/10/18 07:00 Total Protein 6.4 g/dl (6.4-8.2) 06/10/18 07:00 Albumin 3.1 g/dl (3.4-5.0) L 06/10/18 07:00 Urine Color Ltyellow 06/09/18 23: Urine Appearance Clear 06/09/18 23: Urine pH 6.0 (5.0-8.0) 06/09/18 23:05 Ur Specific [place] 1.011 (1.010-1.035) 06/09/18 23:05 Urine Protein Negative (NEGATIVE) 06/09/18 23:05 Urine Glucose (UA) Negative (NEGATIVE) 06/09/18 23:05 Urine Ketones Negative (NEGATIVE) 06/09/18 23: Urine Blood Negative (NEGATIVE) 06/09/18 23: Urine Nitrite Negative (NEGATIVE) 06/09/18 23: Urine Bilirubin Negative (<2.0 mg/dL) 06/09/18 23: Urine Urobilinogen Negative mg/dL (0.2-1.0) 06/09/18 23:05 Ur Leukocyte Esterase Negative (NEGATIVE) 06/09/18 23: RPR Titer Nonreactive (NONREACTIVE) 06/10/18 07:00 HIV 1&2 Antibody Screen Negative 06/10/18 07:00 HIV P24 Antigen Negative 06/10/18 07:00 Labs reviewed. Assessment: Withdrawal symptoms. Plan: Discussed benefits of remaining in detox. Will give a dose of Valium 10 mg this pravin. Continue detox.
[2018-06-13] MEDS ORDERED: diazePAM 5 MG TABLET PO ONE (20:00)
[2018-06-13] MEDS: THIAMINE HCL 100 MG TABLET (FP) PO SCH (22:08)
[2018-06-13] MEDS: QUEtiapine FUMARATE 100 MG TABLET (FP) PO SCH (22:08)
[2018-06-14] MEDS ORDERED: METHADONE HCL 5 MG TABLET (FOR DETOX USE ONLY) PO SCH (06:00)
--- NOTE | 2018-06-14 09:51 | PN ---
[facility] Progress Note (SOAP) Subjective: patient stated that he has long history of anxiety c/o anxiety bp 109/67 ap 70 encourage deep breathing warm shower patient wants to see a psychiatrist for long history of anxiety Objective: 06/14/18 09:50 Vital Signs Temperature 97.2 F L 06/14/18 07:02 Pulse Rate 69 06/14/18 07:02 Respiratory Rate 18 06/14/18 07:02 Blood Pressure 109/67 06/14/18 07:02 O2 Sat by Pulse Oximetry (%) Laboratory Last Values WBC 3.1 K/mm3 (4.0-10.0) L 06/12/18 07:00 RBC 4.29 M/mm3 (4.00-5.60) 06/12/18 07:00 Hgb 12.7 GM/dL (11.7-16.9) 06/12/18 07:00 Hct 38.2 % (35.4-49) 06/12/18 07:00 MCV 89.1 fl (80-96) 06/12/18 07:00 MCH 29.5 pg (25.7-33.7) 06/12/18 07:00 MCHC 33.1 g/dl (32.0-35.9) 06/12/18 07:00 RDW 15.0 % (11.9-15.9) 06/12/18 07:00 Plt Count 187 K/MM3 (134-434) 06/12/18 07:00 MPV 9.8 fl (7.5-11.1) 06/12/18 07:00 Sodium 139 mmol/L (136-145) 06/10/18 07:00 Potassium 3.7 mmol/L (3.5-5.1) 06/10/18 07:00 Chloride 101 mmol/L (98-107) 06/10/18 07:00 Carbon Dioxide 30 mmol/L (21-32) 06/10/18 07:00 Anion Gap 8 MMOL/L (8-16) 06/10/18 07:00 BUN 19 mg/dL (7-18) H 06/10/18 07:00 Creatinine 0.9 mg/dL (0.55-1.3) 06/10/18 07:00 Creat Clearance w eGFR > 60 (>60) 06/10/18 07:00 Random Glucose 117 mg/dL (74-106) H 06/10/18 07:00 Calcium 8.4 mg/dL (8.5-10.1) L 06/10/18 07:00 Total Bilirubin 0.6 mg/dL (0.2-1) 06/10/18 07:00 AST 44 U/L (15-37) H 06/10/18 07:00 ALT 64 U/L (13-61) H 06/10/18 07:00 Alkaline Phosphatase 60 U/L (45-117) 06/10/18 07:00 Total Protein 6.4 g/dl (6.4-8.2) 06/10/18 07:00 Albumin 3.1 g/dl (3.4-5.0) L 06/10/18 07:00 Urine Color Ltyellow 06/09/18 23:05 Urine Appearance Clear 06/09/18 23:05 Urine pH 6.0 (5.0-8.0) 06/09/18 23:05 Ur Specific [place] 1.011 (1.010-1.035) 06/09/18 23:05 Urine Protein Negative (NEGATIVE) 06/09/18 23:05 Urine Glucose (UA) Negative (NEGATIVE) 06/09/18 23:05 Urine Ketones Negative (NEGATIVE) 06/09/18 23:05 Urine Blood Negative (NEGATIVE) 06/09/18 23:05 Urine Nitrite Negative (NEGATIVE) 06/09/18 23:05 Urine Bilirubin Negative (<2.0 mg/dL) 06/09/18 23:05 Urine Urobilinogen Negative mg/dL (0.2-1.0) 06/09/18 23:05 Ur Leukocyte Esterase Negative (NEGATIVE) 06/09/18 23:05 RPR Titer Nonreactive (NONREACTIVE) 06/10/18 07:00 HIV 1&2 Antibody Screen Negative 06/10/18 07:00 HIV P24 Antigen Negative 06/10/18 07:00 lab noted Assessment: 06/14/18 09:50 mild withdrawal sx of anxiety Plan: medically supervised detox
[2018-06-14] MEDS: PRENATAL VITAMINS W/ FOLIC ACID TABLET (FP) PO SCH (10:05)
[2018-06-14] MEDS: BACITRACIN 0.9 GM PACKET TP SCH ×2 (10:05→22:36)
[2018-06-14] MEDS: PARoxetine HCL 20 MG TABLET (FP) PO SCH (10:05)
[2018-06-14] MEDS: NICOTINE 21 MG/24 HOURS TOPICAL PATCH TD SCH (10:05)
[2018-06-14] MEDS: hydrOXYzine PAMOATE 50 MG CAPSULE (FP) PO PRN ×3 (14:12→22:36)
[2018-06-14] MEDS ORDERED: cloNIDine HCL 0.1 MG TABLET PO ONE (17:14)
[2018-06-14] MEDS ORDERED: CYCLOBENZAPRINE HCL 10 MG TABLET (FP) PO ONE (17:16)
--- NOTE | 2018-06-14 17:23 | PN ---
S Progress Note Note: patient ia anxious,withdrawal symptom Vital Signs Temperature 97.1 F L 06/14/18 14:14 Pulse Rate 81 06/14/18 14:14 Respiratory Rate 16 06/14/18 14:14 Blood Pressure 122/84 06/14/18 14:14 O2 Sat by Pulse Oximetry (%) will give flexeil 10 mgs po now then tid prn clonidine 0.1 mg po now then bid vistaril 50 mgs po q 4 hrs prn for anxiety close monitoring
[2018-06-14] MEDS: QUEtiapine FUMARATE 100 MG TABLET (FP) PO SCH (22:36)
[2018-06-14] MEDS: cloNIDine HCL 0.1 MG TABLET PO SCH (22:36)
[2018-06-14] MEDS: THIAMINE HCL 100 MG TABLET (FP) PO SCH (22:36)
[2018-06-14] MEDS: CYCLOBENZAPRINE HCL 10 MG TABLET (FP) PO PRN (22:36)
--- NOTE | 2018-06-15 08:45 | DS ---
[facility] Detox Discharge Summary Admission Date: 06/09/18 Discharge Date: 06/15/18 - History Present History: Alcohol Dependence, Cocaine Dependence, Opioid Dependence, Sedative Dependence - Physical Exam Results Vital Signs: Vital Signs Temperature 97.3 F L 06/15/18 06:00 Pulse Rate 58 L 06/15/18 06:00 Respiratory Rate 18 06/15/18 06:00 Blood Pressure 98/57 L 06/15/18 06:00 O2 Sat by Pulse Oximetry (%) - Treatment Hospital Course: Detox Protocol Followed, Detoxed Safely, Responded well, Discharged Condition Good, Rehab Referral Accepted - Medication Discharge Medications: Ambulatory Orders Paroxetine HCl [Paxil -] 20 mg PO DAILY #30 tablet 06/10/18 Quetiapine Fumarate [Seroquel] 100 mg PO HS #30 tablet 06/10/18 - Diagnosis (1) Weight loss Current Visit: Yes Status: Acute (2) Alcohol dependence with uncomplicated withdrawal Current Visit: Yes Status: Chronic (3) Cocaine dependence Current Visit: Yes Status: Chronic Qualifiers: Substance use status: uncomplicated Qualified Code(s): F14.20 - Cocaine dependence, uncomplicated (4) Hepatitis C Current Visit: Yes Status: Chronic Qualifiers: Viral hepatitis chronicity: chronic Hepatic coma status: without hepatic coma Qualified Code(s): B18.2 - Chronic viral hepatitis C (5) Nicotine dependence Current Visit: Yes Status: Chronic Qualifiers: Nicotine product type: cigarettes Substance use status: uncomplicated Qualified Code(s): F17.210 - Nicotine dependence, cigarettes, uncomplicated (6) Opioid dependence with withdrawal Current Visit: Yes Status: Chronic (7) Opioid dependence with withdrawal Current Visit: Yes Status: Chronic (8) Sedative/hypnotic withdrawal without complication Current Visit: Yes Status: Chronic (9) Alcohol dependence Current Visit: No Status: Acute (10) Canker sores oral Current Visit: No Status: Acute (11) PTSD (post-traumatic stress disorder) Current Visit: No Status: Acute (12) Sedative hypnotic or anxiolytic dependence Current Visit: No Status: Acute (13) Substance-induced anxiety disorder Current Visit: No Status: Acute (14) Substance-induced sleep disorder Current Visit: No Status: Acute (15) ADHD (attention deficit hyperactivity disorder) Current Visit: No Status: Chronic (16) Bipolar disorder Current Visit: No Status: Chronic (17) Cannabis dependence Current Visit: No Status: Chronic (18) Hepatitis C carrier Current Visit: No Status: Chronic (19) Nicotine dependence, uncomplicated Current Visit: No Status: Chronic Qualifiers: Nicotine product type: cigarettes Qualified Code(s): F17.210 - Nicotine dependence, cigarettes, uncomplicated (20) Opioid dependence on agonist therapy Current Visit: No Status: Chronic (21) PTSD (post-traumatic stress disorder) Current Visit: No Status: Chronic (22) PPD positive Current Visit: No Status: Resolved - AMA Did Patient Leave Against Medical Advice: No (referred to rehab [facility])
[2018-06-15 10:26] VITALS: BP 113/69; PULSE 94; TEMP 97.7
[2018-06-15] MEDS: NICOTINE 21 MG/24 HOURS TOPICAL PATCH TD SCH (10:27)
[2018-06-15] MEDS: cloNIDine HCL 0.1 MG TABLET PO SCH (10:28)
[2018-06-15] MEDS: PARoxetine HCL 20 MG TABLET (FP) PO SCH (10:28)
[2018-06-15] MEDS: PRENATAL VITAMINS W/ FOLIC ACID TABLET (FP) PO SCH (10:28)
[2018-06-15] MEDS: hydrOXYzine PAMOATE 50 MG CAPSULE (FP) PO PRN (10:30)
[2018-06-15] MEDS: CYCLOBENZAPRINE HCL 10 MG TABLET (FP) PO PRN (10:38)
== END 2018-06-15 11:16 | disposition other institution (70) | DRG 773 ==
LOC: YASAS 15:19 → Y6N 20:35
PROC: HZ2ZZZZ Detoxification Services for Substance Abuse Treatment (ICD-10-PCS; principal; 2018-06-09)
DX: F11.23 Opioid dependence with withdrawal (principal); F10.230 Alcohol dependence with withdrawal, uncomplicated; F13.230 Sedative, hypnotic or anxiolytic dependence with withdrawal, uncomplicated; F14.20 Cocaine dependence, uncomplicated; F17.210 Nicotine dependence, cigarettes, uncomplicated; F43.10 Post-traumatic stress disorder, unspecified; F19.280 Other psychoactive substance dependence with psychoactive substance-induced anxiety disorder; F19.282 Other psychoactive substance dependence with psychoactive substance-induced sleep disorder; F31.9 Bipolar disorder, unspecified; B18.2 Chronic viral hepatitis C; K12.0 Recurrent oral aphthae; R76.11 Nonspecific reaction to tuberculin skin test without active tuberculosis; H57.89 Other specified disorders of eye and adnexa; Z87.898 Personal history of other specified conditions
CPT/HCPCS: 36415; 80053; 81003; 85027; 86593; 87389; 93005; 93010; J0735

== ENCOUNTER 2018-06-15 11:24 | Inpatient (IN) | payer OTHER ==
[2018-06-15 12:16] VITALS: BMI 21.0
[2018-06-15] MEDS ORDERED: P-EPHED 60MG/TRIPROLIDI 2.5MG TABLET PO PRN (12:18)
[2018-06-15] MEDS ORDERED: IBUPROFEN 400 MG TABLET (FP) PO PRN (12:18)
[2018-06-15] MEDS ORDERED: MAGNESIUM HYDROX 2400MG/30ML ORAL SUSPENSION 30 ML CUP PO PRN (12:18)
[2018-06-15] MEDS ORDERED: ACETAMINOPHEN 325 MG TABLET (FP) PO PRN (12:18)
[2018-06-15] MEDS ORDERED: MENTHOL/PHENOL 1 EACH UD MM PRN (12:18)
[2018-06-15] MEDS ORDERED: LOPERAMIDE HCL 2 MG CAPSULE PO PRN (12:18)
[2018-06-15] MEDS ORDERED: MAG HYDROX/AL HYDROX/SIMETH 30 ML UNIT-DOSE CUP PO PRN (12:18)
[2018-06-15] MEDS ORDERED: MAGNESIUM CITRATE 300 ML BOTTLE PO PRN (12:18)
[2018-06-15] MEDS ORDERED: guaiFENesin/D-METHORPHAN HB 10 ML UNIT-DOSE CUPS PO PRN (12:18)
[2018-06-15] MEDS ORDERED: NICOTINE POLACRILEX 4 MG GUM BUC PRN (12:18)
--- NOTE | 2018-06-15 12:18 | HP ---
ST[facility]IE [facility] Rehab Assess/Revision - Admission History Admitted to Rehab from: [facility] - Vital signs Vital Signs: Vital Signs Period Temp Pulse Resp BP Sys/Moore Pulse Ox Last 24 Hr 97.8 F 80 18 99/57 - Findings Detox History & Physical reviewed: Yes Concur with findings: Yes
[2018-06-15] MEDS: CYCLOBENZAPRINE HCL 10 MG TABLET (FP) PO PRN (17:25)
[2018-06-15] MEDS: hydrOXYzine PAMOATE 50 MG CAPSULE (FP) PO PRN (17:25)
[2018-06-15] MEDS: MELATONIN 5 MG TABLETS PO PRN (21:47)
[2018-06-15] MEDS: THIAMINE HCL 100 MG TABLET (FP) PO SCH (21:47)
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
[2018-06-16] MEDS: hydrOXYzine PAMOATE 50 MG CAPSULE (FP) PO PRN ×3 (07:42→22:12)
[2018-06-16] MEDS: CYCLOBENZAPRINE HCL 10 MG TABLET (FP) PO PRN ×2 (07:42→15:15)
[2018-06-16] MEDS: PRENATAL VITAMINS W/ FOLIC ACID TABLET (FP) PO SCH (10:15)
[2018-06-16] MEDS: NICOTINE 21 MG/24 HOURS TOPICAL PATCH TD SCH (10:15)
[2018-06-16] MEDS ORDERED: cloNIDine HCL 0.1 MG TABLET PO PRN (15:28)
[2018-06-16] MEDS ORDERED: cloNIDine HCL 0.1 MG TABLET PO SCH (22:00)
[2018-06-16] MEDS: THIAMINE HCL 100 MG TABLET (FP) PO SCH (22:06)
[2018-06-16] MEDS: MELATONIN 5 MG TABLETS PO PRN (22:12)
[2018-06-17] MEDS: PRENATAL VITAMINS W/ FOLIC ACID TABLET (FP) PO SCH (10:21)
[2018-06-17] MEDS: NICOTINE 21 MG/24 HOURS TOPICAL PATCH TD SCH (10:21)
[2018-06-17] MEDS: PARoxetine HCL 20 MG TABLET (FP) PO SCH (12:12)
[2018-06-17] MEDS: hydrOXYzine PAMOATE 50 MG CAPSULE (FP) PO PRN (13:14)
--- NOTE | 2018-06-17 13:30 | PN ---
BHS COWS - Scale Resting Pulse: 1= MI 81-100 Sweatin=Flushed/Facial Moisture Restless Observation: 1= Difficult to Sit Still Pupil Size: 1= Pupils >than Normal Bone or Joint Aches: 1= Mild Discomfort Runny Nose/ Eye Tearin= Runny Nose/Eyes GI Upset > 30mins: 2= Nausea/Diarrhea Tremor Observation of Outstretched Hands: 2= Slight Tremor Visible Yawning Observation: 1= 1-2x During Session Anxiety or Irritability: 4=Extreme Anxiety Goose Flesh Skin: 0=Smooth Skin COWS Score: 17
--- NOTE | 2018-06-17 13:56 | PN ---
[facility] Progress Note Note: This is a 43 year old gentleman with a history of opioid use disorder, recently in detox, asking for Suboxone. COWS 17, with GI upset, hot and cold flashes, anxiety, joint pain. Substance Use History Alcohol, first at 17 yo, last was 2-3 weeks ago, 4-5 beers in one sitting (8oz) , denies daily use, drinks 1-2 times a week (mostly at work) Cocaine: first at 23yo, last one month ago, sporadic use "not my thing" MJA: denies Benzodiaziopenes: Prescribed 5 years ago, gets Klonopin on and off for last five years through "[facility]ill mill" ([facility]). Last use was 3 months ago , when he was given a prescription (60 pills). Opioids: Heroin started at 23 yo, first IN, then IV since 27 yo, last time was this past friday. Using 12-15 bags a day. Tobacco: 17 yo first smoking, now 1PPD smoker. Treatment Inpatient detox 5-6 times, last before this was in November MMTP: [facility] ([place]), started one year ago, 180mg (still using heroin at that dose) left program due to conflicts with his job. Work in a [employer] for last 2 years. Also h/o construction work. Stay with a friend in an apartment.Highest grade 11th. Single, one child 19yo lives in [place] with is mother. Mother/Father alcoholic, brother also with a substance use disorder. Psychiatry Evaluation: 2007 at [facility]: depression on Paxil was taking up until a couple of weeks ago. Doctor at [facility] took over prescribing it. PMHx: Hepatitis C untreated, plans to get it treated. PSurghx: None ALL: none' Meds: Paxil COWS: 17 Mood: Anxious Affect: Appropriate TP: directed Insight: good A/P: Opioid Use Disorder, severe 1) Will start Suboxone 4mg, re-evaluate in 45 minutes for an increased dose. 2) Treat other symptoms as needed. 3) Long discussion with patient about need for MAT.
[2018-06-17] MEDS ORDERED: BUPRENORPHINE/NALOXONE 8 MG/2 MG FILM PACKET SL SCH (14:00)
[2018-06-17] MEDS: THIAMINE HCL 100 MG TABLET (FP) PO SCH (21:12)
[2018-06-17] MEDS: QUEtiapine FUMARATE 100 MG TABLET (FP) PO SCH (21:12)
--- NOTE | 2018-06-18 09:32 | PN ---
B[facility] COWS - Scale Resting Pulse: 0= RI 80 or Below Sweatin= Chills/Flushing Restless Observation: 1= Difficult to Sit Still Pupil Size: 0= Normal to Room Light Bone or Joint Aches: 4=Acute Joint/Muscle Pain Runny Nose/ Eye Tearin= Runny Nose/Eyes GI Upset > 30mins: 2= Nausea/Diarrhea (nausea) Tremor Observation of Outstretched Hands: 2= Slight Tremor Visible Yawning Observation: 0= None Anxiety or Irritability: 1=Feels Anxious/Irritable Goose Flesh Skin: 3=Piloerection COWS Score: 16 BHS Progress Note (SOAP) Subjective: PT REPORTS DECREASED WITHDRAWAL SX SOON AFTER DOSED YESTERDAY. PT CURRENTLY ON SUBOXONE 8MG/2MG SL DAILY. PT REPORTS HE WAS ON 3 PILLS("NOT THE FILM") OF [address] [facility] 5 YEARS AGO AND WANTS TO BE INCREASED TODAY BECAUSE "I STILL FEEL SICK". Objective: 06/18/18 09:38 Vital Signs - 24 hr 06/18/18 06/18/18 00:30 07:01 Temperature 97.3 F L Pulse Rate 61 Respiratory 18 18 Rate Blood Pressure 108/75 Assessment: 06/18/18 09:39 WITHDRAWAL SX/CRAVINGS Plan: ADD ADDITIONAL SUBOXONE 4 MG/1 MG FOR TOTAL OF 12 MG/3 MG SL TODAY F/U AND MONITOR PATIENT FOR EFFECTIVENESS OF TX.
[2018-06-18] MEDS ORDERED: BUPRENORPHINE HCL/NALOXONE 12 MG-3 MG SL FILM PACKET SL SCH (10:00)
[2018-06-18] MEDS: PRENATAL VITAMINS W/ FOLIC ACID TABLET (FP) PO SCH (10:09)
[2018-06-18] MEDS: NICOTINE 21 MG/24 HOURS TOPICAL PATCH TD SCH (10:09)
[2018-06-18] MEDS: PARoxetine HCL 20 MG TABLET (FP) PO SCH (10:09)
[2018-06-18] MEDS ORDERED: BUPRENORPHINE/NALOXONE 8 MG/2 MG FILM PACKET SL ONE (10:40)
[2018-06-18] MEDS ORDERED: BUPRENORPHINE/NALOXONE 2 MG/0.5 MG FILM PACKET SL ONE (10:45)
[2018-06-18] MEDS: hydrOXYzine PAMOATE 50 MG CAPSULE (FP) PO PRN (14:13)
[2018-06-18] MEDS: QUEtiapine FUMARATE 100 MG TABLET (FP) PO SCH (22:07)
[2018-06-18] MEDS: MELATONIN 5 MG TABLETS PO PRN (22:07)
[2018-06-18] MEDS: THIAMINE HCL 100 MG TABLET (FP) PO SCH (22:07)
[2018-06-19] MEDS: PRENATAL VITAMINS W/ FOLIC ACID TABLET (FP) PO SCH (10:28)
[2018-06-19] MEDS: NICOTINE 21 MG/24 HOURS TOPICAL PATCH TD SCH (10:28)
[2018-06-19] MEDS: PARoxetine HCL 20 MG TABLET (FP) PO SCH (10:28)
[2018-06-19] MEDS: BUPRENORPHINE HCL/NALOXONE 12 MG-3 MG SL FILM PACKET SL SCH (10:28)
[2018-06-19] MEDS: hydrOXYzine PAMOATE 50 MG CAPSULE (FP) PO PRN ×2 (12:23→21:37)
[2018-06-19] MEDS: CYCLOBENZAPRINE HCL 10 MG TABLET (FP) PO PRN (12:23)
[2018-06-19] MEDS: MELATONIN 5 MG TABLETS PO PRN (21:37)
[2018-06-19] MEDS: THIAMINE HCL 100 MG TABLET (FP) PO SCH (21:38)
[2018-06-19] MEDS: QUEtiapine FUMARATE 100 MG TABLET (FP) PO SCH (21:38)
[2018-06-20] MEDS: BUPRENORPHINE HCL/NALOXONE 12 MG-3 MG SL FILM PACKET SL SCH (10:24)
[2018-06-20] MEDS: NICOTINE 21 MG/24 HOURS TOPICAL PATCH TD SCH (10:24)
[2018-06-20] MEDS: PARoxetine HCL 20 MG TABLET (FP) PO SCH (10:24)
[2018-06-20] MEDS: PRENATAL VITAMINS W/ FOLIC ACID TABLET (FP) PO SCH (10:25)
[2018-06-20] MEDS: hydrOXYzine PAMOATE 50 MG CAPSULE (FP) PO PRN ×2 (10:26→21:50)
[2018-06-20] MEDS: THIAMINE HCL 100 MG TABLET (FP) PO SCH (21:49)
[2018-06-20] MEDS: QUEtiapine FUMARATE 100 MG TABLET (FP) PO SCH (21:49)
[2018-06-21] MEDS: PRENATAL VITAMINS W/ FOLIC ACID TABLET (FP) PO SCH (10:24)
[2018-06-21] MEDS: hydrOXYzine PAMOATE 50 MG CAPSULE (FP) PO PRN (10:25)
[2018-06-21] MEDS: PARoxetine HCL 20 MG TABLET (FP) PO SCH (10:25)
[2018-06-21] MEDS: BUPRENORPHINE HCL/NALOXONE 12 MG-3 MG SL FILM PACKET SL SCH (10:25)
[2018-06-21] MEDS: NICOTINE 21 MG/24 HOURS TOPICAL PATCH TD SCH (10:25)
[2018-06-21] MEDS: QUEtiapine FUMARATE 100 MG TABLET (FP) PO SCH (22:09)
[2018-06-21] MEDS: THIAMINE HCL 100 MG TABLET (FP) PO SCH (22:09)
[2018-06-22] MEDS: NICOTINE 21 MG/24 HOURS TOPICAL PATCH TD SCH (10:34)
[2018-06-22] MEDS: PRENATAL VITAMINS W/ FOLIC ACID TABLET (FP) PO SCH (10:34)
[2018-06-22] MEDS: BUPRENORPHINE HCL/NALOXONE 12 MG-3 MG SL FILM PACKET SL SCH (10:34)
[2018-06-22] MEDS: PARoxetine HCL 20 MG TABLET (FP) PO SCH (10:34)
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
[2018-06-22] MEDS: QUEtiapine FUMARATE 100 MG TABLET (FP) PO SCH (21:48)
[2018-06-22] MEDS: THIAMINE HCL 100 MG TABLET (FP) PO SCH (21:49)
[2018-06-22] MEDS ORDERED: BUPRENORPHINE/NALOXONE 8 MG/2 MG FILM PACKET SL ONE (22:00)
[2018-06-22] MEDS ORDERED: BUPRENORPHINE/NALOXONE 8 MG/2 MG FILM PACKET SL SCH ×2 (22:00)
[2018-06-23] MEDS: BUPRENORPHINE/NALOXONE 8 MG/2 MG FILM PACKET SL SCH ×3 (05:59→21:44)
[2018-06-23] MEDS: NICOTINE 21 MG/24 HOURS TOPICAL PATCH TD SCH (10:30)
[2018-06-23] MEDS: PRENATAL VITAMINS W/ FOLIC ACID TABLET (FP) PO SCH (10:30)
[2018-06-23] MEDS: PARoxetine HCL 20 MG TABLET (FP) PO SCH (10:30)
[2018-06-23] MEDS: QUEtiapine FUMARATE 100 MG TABLET (FP) PO SCH (21:43)
[2018-06-23] MEDS: THIAMINE HCL 100 MG TABLET (FP) PO SCH (21:43)
[2018-06-24] MEDS: BUPRENORPHINE/NALOXONE 8 MG/2 MG FILM PACKET SL SCH ×3 (06:26→21:30)
[2018-06-24] MEDS: PARoxetine HCL 20 MG TABLET (FP) PO SCH (10:22)
[2018-06-24] MEDS: NICOTINE 21 MG/24 HOURS TOPICAL PATCH TD SCH (10:22)
[2018-06-24] MEDS: PRENATAL VITAMINS W/ FOLIC ACID TABLET (FP) PO SCH (10:22)
[2018-06-24] MEDS: QUEtiapine FUMARATE 100 MG TABLET (FP) PO SCH (21:29)
[2018-06-24] MEDS: THIAMINE HCL 100 MG TABLET (FP) PO SCH (21:29)
[2018-06-25] MEDS: BUPRENORPHINE/NALOXONE 8 MG/2 MG FILM PACKET SL SCH ×3 (06:21→21:54)
[2018-06-25] MEDS: PARoxetine HCL 20 MG TABLET (FP) PO SCH (10:28)
[2018-06-25] MEDS: NICOTINE 21 MG/24 HOURS TOPICAL PATCH TD SCH (10:28)
[2018-06-25] MEDS: PRENATAL VITAMINS W/ FOLIC ACID TABLET (FP) PO SCH (10:28)
[2018-06-25] MEDS: THIAMINE HCL 100 MG TABLET (FP) PO SCH (21:54)
[2018-06-25] MEDS: QUEtiapine FUMARATE 100 MG TABLET (FP) PO SCH (21:54)
[2018-06-26] MEDS: BUPRENORPHINE/NALOXONE 8 MG/2 MG FILM PACKET SL SCH ×3 (06:11→22:02)
[2018-06-26] MEDS: PRENATAL VITAMINS W/ FOLIC ACID TABLET (FP) PO SCH (10:24)
[2018-06-26] MEDS: PARoxetine HCL 20 MG TABLET (FP) PO SCH (10:24)
[2018-06-26] MEDS: NICOTINE 21 MG/24 HOURS TOPICAL PATCH TD SCH (10:24)
[2018-06-26] MEDS: QUEtiapine FUMARATE 100 MG TABLET (FP) PO SCH (22:01)
[2018-06-26] MEDS: CYCLOBENZAPRINE HCL 10 MG TABLET (FP) PO PRN (22:01)
[2018-06-26] MEDS: hydrOXYzine PAMOATE 50 MG CAPSULE (FP) PO PRN (22:02)
[2018-06-26] MEDS: THIAMINE HCL 100 MG TABLET (FP) PO SCH (22:03)
[2018-06-27] MEDS: BUPRENORPHINE/NALOXONE 8 MG/2 MG FILM PACKET SL SCH ×3 (06:07→22:04)
[2018-06-27] MEDS: NICOTINE 21 MG/24 HOURS TOPICAL PATCH TD SCH (10:33)
[2018-06-27] MEDS: PRENATAL VITAMINS W/ FOLIC ACID TABLET (FP) PO SCH (10:33)
[2018-06-27] MEDS: PARoxetine HCL 20 MG TABLET (FP) PO SCH (10:33)
[2018-06-27] MEDS: CYCLOBENZAPRINE HCL 10 MG TABLET (FP) PO PRN (22:04)
[2018-06-27] MEDS: QUEtiapine FUMARATE 100 MG TABLET (FP) PO SCH (22:04)
[2018-06-27] MEDS: THIAMINE HCL 100 MG TABLET (FP) PO SCH (22:06)
[2018-06-28] MEDS: BUPRENORPHINE/NALOXONE 8 MG/2 MG FILM PACKET SL SCH ×3 (06:27→21:54)
[2018-06-28 07:08] VITALS: TEMP 97.6
[2018-06-28] MEDS: PARoxetine HCL 20 MG TABLET (FP) PO SCH (10:04)
[2018-06-28] MEDS: NICOTINE 21 MG/24 HOURS TOPICAL PATCH TD SCH (10:04)
[2018-06-28] MEDS: PRENATAL VITAMINS W/ FOLIC ACID TABLET (FP) PO SCH (10:04)
[2018-06-28] MEDS: CYCLOBENZAPRINE HCL 10 MG TABLET (FP) PO PRN (21:53)
[2018-06-28] MEDS: QUEtiapine FUMARATE 100 MG TABLET (FP) PO SCH (21:53)
[2018-06-28] MEDS: THIAMINE HCL 100 MG TABLET (FP) PO SCH (21:55)
[2018-06-29] MEDS: BUPRENORPHINE/NALOXONE 8 MG/2 MG FILM PACKET SL SCH (06:15)
[2018-06-29 07:16] VITALS: BP 98/67; PULSE 81
--- NOTE | 2018-06-29 09:20 | PN ---
[facility] Progress Note Note: Patient completed this program today.He has met his treatment goals and will continue to address his issues on outpatient basis at [facility].Scripts for 30 days provided. Patient is stable for discharge today.
[2018-06-29] MEDS: PARoxetine HCL 20 MG TABLET (FP) PO SCH (09:57)
[2018-06-29] MEDS: PRENATAL VITAMINS W/ FOLIC ACID TABLET (FP) PO SCH (09:57)
[2018-06-29] MEDS: NICOTINE 21 MG/24 HOURS TOPICAL PATCH TD SCH (09:58)
--- NOTE | 2018-06-29 15:31 | HP ---
STEVIE LANG Rehab Assess/Revision - Vital signs Vital Signs: Vital Signs Period Temp Pulse Resp BP Sys/Moore Pulse Ox Last 24 Hr 97.6 F 81 16-16 98/67 Inpatient Rehab Admission - Initial Determination Are CD services needed?: Yes Free of communicable disease: Yes Not in need of hospitalization: Yes - Rehab Admission Criteria Previous failed treatment: Yes Poor recovery environment: Yes Lacks judgement: Yes Patient is meeting Inpatient Rehab admission criteria:: Yes
== END 2018-06-29 11:38 | disposition home or self-care (01) | DRG 772 ==
LOC: YASAS 11:24 → Y3W 11:25
PROVIDERS: ADMIT Psychiatry & Neurology Psychiatry; ATTEND Psychiatry & Neurology Psychiatry
PROC: HZ42ZZZ Group Counseling for Substance Abuse Treatment, Cognitive-Behavioral (ICD-10-PCS; principal; 2018-06-15)
DX: F11.20 Opioid dependence, uncomplicated (principal); F10.20 Alcohol dependence, uncomplicated; F13.20 Sedative, hypnotic or anxiolytic dependence, uncomplicated; F14.20 Cocaine dependence, uncomplicated; F17.210 Nicotine dependence, cigarettes, uncomplicated; F19.280 Other psychoactive substance dependence with psychoactive substance-induced anxiety disorder; F19.282 Other psychoactive substance dependence with psychoactive substance-induced sleep disorder; F31.9 Bipolar disorder, unspecified; F43.10 Post-traumatic stress disorder, unspecified; B18.2 Chronic viral hepatitis C; R56.9 Unspecified convulsions; R76.11 Nonspecific reaction to tuberculin skin test without active tuberculosis

== ENCOUNTER 2021-05-17 12:18 | Inpatient (IN) | payer OTHER ==
[2021-05-17 14:55] VITALS: BMI 19.9
[2021-05-17] MEDS ORDERED: MENTHOL/PHENOL 1 EACH UD MM PRN (15:50)
[2021-05-17] MEDS ORDERED: MAGNESIUM HYDROX 2400MG/30ML ORAL SUSPENSION 30 ML CUP PO PRN (15:50)
[2021-05-17] MEDS ORDERED: MAGNESIUM CITRATE 300 ML BOTTLE PO PRN (15:50)
[2021-05-17] MEDS ORDERED: MAG HYDROX/AL HYDROX/SIMETH 30 ML UNIT-DOSE CUP PO PRN (15:50)
[2021-05-17] MEDS ORDERED: ACETAMINOPHEN 325 MG TABLET (FP) PO PRN ×2 (15:50)
[2021-05-17] MEDS ORDERED: cloNIDine HCL 0.1 MG TABLET PO PRN (15:50)
[2021-05-17] MEDS ORDERED: ONDANSETRON *ODT* 4 MG TABLET SL PRN (15:50)
[2021-05-17] MEDS ORDERED: BISMUTH SUBSALICYLATE 524 MG/30 ML PO PRN (15:50)
[2021-05-17] MEDS ORDERED: clonazePAM 0.5 MG ODT TABLETS SL PRN (15:50)
[2021-05-17] MEDS ORDERED: NALOXONE (NARCAN) HCL 4 MG/0.1 ML SPRAY NS PRN (15:50)
[2021-05-17] MEDS ORDERED: IBUPROFEN 400 MG TABLET (FP) PO PRN (15:50)
[2021-05-17] MEDS ORDERED: methaDONE HCL 10 MG TABLET (FOR DETOX USE ONLY) PO ONE (17:00)
[2021-05-17] MEDS: diazePAM 5 MG TABLET PO SCH ×2 (17:41→22:15)
[2021-05-17] MEDS: NICOTINE 21 MG/24 HOURS TOPICAL PATCH TD SCH (17:44)
[2021-05-17] MEDS: hydrOXYzine PAMOATE 25 MG CAPSULE (FP) PO SCH ×2 (17:44→22:15)
[2021-05-17] MEDS: diazePAM 5 MG TABLET PO PRN (19:45)
[2021-05-17] MEDS: MELATONIN 5 MG TABLETS PO SCH (22:15)
[2021-05-17] MEDS: THIAMINE HCL 100 MG TABLET (FP) PO SCH (22:15)
[2021-05-17] MEDS: NICOTINE 10 MG CARTRIDGE (INHALER) IH PRN (23:07)
[2021-05-18] MEDS: diazePAM 5 MG TABLET PO PRN ×2 (03:33→14:00)
[2021-05-18] MEDS: hydrOXYzine PAMOATE 25 MG CAPSULE (FP) PO SCH (05:55)
[2021-05-18] MEDS: METHOCARBAMOL 500 MG TABLET PO PRN (05:56)
[2021-05-18] MEDS: diazePAM 5 MG TABLET PO SCH ×4 (05:56→22:24)
[2021-05-18] MEDS: NICOTINE 10 MG CARTRIDGE (INHALER) IH PRN ×4 (05:58→22:49)
[2021-05-18] MEDS ORDERED: methaDONE HCL 10 MG TABLET (FOR DETOX USE ONLY) ONE (09:49)
[2021-05-18 10:04] LABS: HEMATOCRIT 39.5 % (35.4-49); HEMOGLOBIN 13.2 GM/dL (11.7-16.9); MCH 30.8 pg (25.7-33.7); MCHC 33.5 g/dl (32.0-35.9); MEAN PLT VOLUME 9.6 fl (7.5-11.1); PLATELET COUNT 131 10^3/uL (134-434); RBC 4.29 M/mm3 (4.00-5.60); RDW 14.6 % (11.9-15.9); WHITE BLOOD COUNT 3.6 K/mm3 (4.0-10.0)
[2021-05-18 10:17] LABS: CALCIUM 9.1 mg/dL (8.5-10.1)
[2021-05-18 10:18] LABS: ALBUMIN 3.1 g/dl (3.4-5.0); BLOOD UREA NITROGEN 10.7 mg/dL (7-18)
[2021-05-18 10:21] LABS: CREATININE 0.8 mg/dL (0.55-1.3)
[2021-05-18 10:22] LABS: BILIRUBIN,TOTAL 0.6 mg/dL (0.2-1); TOT PROT 6.5 g/dl (6.4-8.2)
[2021-05-18] MEDS: NICOTINE 21 MG/24 HOURS TOPICAL PATCH TD SCH (10:23)
[2021-05-18] MEDS ORDERED: methaDONE HCL 10 MG TABLET PO ONE (12:18)
[2021-05-18] MEDS ORDERED: methaDONE HCL 10 MG TABLET ONE (12:34)
[2021-05-18] MEDS ORDERED: methaDONE HCL 40 MG DISPERSABLE TABLET ONE (12:35)
[2021-05-18] MEDS: MELATONIN 5 MG TABLETS PO SCH (22:22)
[2021-05-18] MEDS: THIAMINE HCL 100 MG TABLET (FP) PO SCH (22:22)
[2021-05-19] MEDS: diazePAM 5 MG TABLET PO PRN ×3 (03:18→17:48)
[2021-05-19] MEDS: diazePAM 5 MG TABLET PO SCH ×3 (05:55→22:09)
[2021-05-19] MEDS: methaDONE HCL 40 MG DISPERSABLE TABLET PO SCH (05:55)
[2021-05-19] MEDS: hydrOXYzine PAMOATE 25 MG CAPSULE (FP) PO PRN ×3 (05:58→17:49)
[2021-05-19] MEDS: NICOTINE 10 MG CARTRIDGE (INHALER) IH PRN ×4 (06:56→22:12)
[2021-05-19] MEDS: METHOCARBAMOL 500 MG TABLET PO PRN ×2 (09:22→16:34)
[2021-05-19] MEDS ORDERED: methaDONE HCL 10 MG TABLET (FOR DETOX USE ONLY) PO ONE (10:00)
[2021-05-19] MEDS: NICOTINE 21 MG/24 HOURS TOPICAL PATCH TD SCH (10:22)
[2021-05-19] MEDS: MELATONIN 5 MG TABLETS PO SCH (22:09)
[2021-05-19] MEDS: THIAMINE HCL 100 MG TABLET (FP) PO SCH (22:09)
[2021-05-20] MEDS: NICOTINE 10 MG CARTRIDGE (INHALER) IH PRN ×2 (01:31→10:34)
[2021-05-20] MEDS: diazePAM 5 MG TABLET PO PRN ×2 (01:32→09:31)
[2021-05-20] MEDS: methaDONE HCL 40 MG DISPERSABLE TABLET PO SCH (05:38)
[2021-05-20] MEDS: hydrOXYzine PAMOATE 25 MG CAPSULE (FP) PO PRN ×2 (05:41→09:31)
[2021-05-20] MEDS ORDERED: diazePAM 5 MG TABLET PO SCH (06:00)
[2021-05-20] MEDS: METHOCARBAMOL 500 MG TABLET PO PRN (09:31)
[2021-05-20] MEDS: NICOTINE 21 MG/24 HOURS TOPICAL PATCH TD SCH (09:33)
[2021-05-20 10:05] VITALS: BP 110/84; PULSE 72; TEMP 97.1
[2021-05-21] MEDS ORDERED: diazePAM 5 MG TABLET PO ONE (06:00)
[2021-05-21] MEDS ORDERED: methaDONE HCL 10 MG TABLET (FOR DETOX USE ONLY) PO ONE (10:00)
== END 2021-05-20 12:52 | disposition home or self-care (01) | DRG 773 ==
LOC: YASAS 12:18 → Y3N 15:03
PROVIDERS: ADMIT Allergy & Immunology; ATTEND Allergy & Immunology
PROC: HZ2ZZZZ Detoxification Services for Substance Abuse Treatment (ICD-10-PCS; principal; 2021-05-17)
DX: F11.23 Opioid dependence with withdrawal (principal); F10.230 Alcohol dependence with withdrawal, uncomplicated; F14.20 Cocaine dependence, uncomplicated; F13.20 Sedative, hypnotic or anxiolytic dependence, uncomplicated; F17.210 Nicotine dependence, cigarettes, uncomplicated; B18.2 Chronic viral hepatitis C
CPT/HCPCS: 36415; 80053; 85027; 86780; C9803; U0003; U0005

== ENCOUNTER 2021-05-21 15:28 | Inpatient (IN) | payer OTHER ==
[2021-05-21 18:18] VITALS: BMI 20.6
[2021-05-21] MEDS ORDERED: ACETAMINOPHEN 325 MG TABLET (FP) PO PRN (18:56)
[2021-05-21] MEDS ORDERED: NALOXONE (NARCAN) HCL 4 MG/0.1 ML SPRAY NS PRN (18:56)
[2021-05-21] MEDS ORDERED: MAGNESIUM HYDROX 2400MG/30ML ORAL SUSPENSION 30 ML CUP PO PRN (18:56)
[2021-05-21] MEDS ORDERED: MAGNESIUM CITRATE 300 ML BOTTLE PO PRN (18:56)
[2021-05-21] MEDS ORDERED: P-EPHED 60MG/TRIPROLIDI 2.5MG TABLET PO PRN (18:56)
[2021-05-21] MEDS ORDERED: IBUPROFEN 400 MG TABLET (FP) PO PRN (18:56)
[2021-05-21] MEDS ORDERED: MAG HYDROX/AL HYDROX/SIMETH 30 ML UNIT-DOSE CUP PO PRN (18:56)
[2021-05-21] MEDS ORDERED: LOPERAMIDE HCL 2 MG CAPSULE PO PRN (18:56)
[2021-05-21] MEDS ORDERED: guaiFENesin 200 MG/10 ML 10 ML UNIT-DOSE CUPS PO PRN (18:56)
[2021-05-21] MEDS ORDERED: ALBUTEROL SO4 HFA INHALER IH PRN (18:58)
[2021-05-21] MEDS: MELATONIN 5 MG TABLETS PO SCH (23:02)
[2021-05-21] MEDS: hydrOXYzine PAMOATE 25 MG CAPSULE (FP) PO SCH (23:03)
[2021-05-21] MEDS: NICOTINE 14 MG/24 HOURS TOPICAL PATCH TD SCH (23:03)
[2021-05-21] MEDS: THIAMINE HCL 100 MG TABLET (FP) PO SCH (23:03)
[2021-05-21] MEDS: PRENATAL VITAMINS W/ FOLIC ACID TABLET (FP) PO SCH (23:03)
[2021-05-22] MEDS: NICOTINE 10 MG CARTRIDGE (INHALER) IH PRN ×7 (00:30→23:33)
[2021-05-22] MEDS: hydrOXYzine PAMOATE 25 MG CAPSULE (FP) PO SCH ×3 (06:23→13:39)
[2021-05-22] MEDS: methaDONE HCL 40 MG DISPERSABLE TABLET PO SCH (07:53)
[2021-05-22] MEDS: NICOTINE 14 MG/24 HOURS TOPICAL PATCH TD SCH (09:53)
[2021-05-22] MEDS: PRENATAL VITAMINS W/ FOLIC ACID TABLET (FP) PO SCH (09:53)
[2021-05-22 10:13] LABS: CALCIUM 8.5 mg/dL (8.5-10.1)
[2021-05-22 10:14] LABS: ALBUMIN 3.2 g/dl (3.4-5.0)
[2021-05-22 10:15] LABS: HEMATOCRIT 40.5 % (35.4-49); HEMOGLOBIN 13.6 GM/dL (11.7-16.9); MCH 31.1 pg (25.7-33.7); MCHC 33.6 g/dl (32.0-35.9); MEAN CELL VOLUME 92.6 fl (80-96); MEAN PLT VOLUME 8.9 fl (7.5-11.1); PLATELET COUNT 160 10^3/uL (134-434); RBC 4.37 M/mm3 (4.00-5.60); RDW 14.5 % (11.9-15.9); WHITE BLOOD COUNT 4.1 K/mm3 (4.0-10.0)
[2021-05-22 10:18] LABS: BILIRUBIN,TOTAL 0.2 mg/dL (0.2-1)
[2021-05-22 10:19] LABS: TOT PROT 7.2 g/dl (6.4-8.2)
[2021-05-22 10:29] LABS: BLOOD UREA NITROGEN 23.8 mg/dL (7-18)
[2021-05-22 12:44] LABS: URINE APPEARANCE CLEAR; URINE BILIRUBIN NEGATIVE (NEGATIVE); URINE COLOR YELLOW; URINE GLUCOSE (UA) NEGATIVE (NEGATIVE); URINE KETONE NEGATIVE (NEGATIVE); URINE LEUK ESTERASE NEGATIVE (NEGATIVE); URINE NITRITE NEGATIVE (NEGATIVE); URINE PROTEIN NEGATIVE (NEGATIVE)
[2021-05-22 13:25] LABS: SYPHILIS W/ RPR CONF NON-REACTIVE (NONREACTIVE)
[2021-05-22] MEDS ORDERED: hydrOXYzine PAMOATE 25 MG CAPSULE (FP) PO ONE (16:02)
[2021-05-22] MEDS: hydrOXYzine PAMOATE 50 MG CAPSULE (FP) PO SCH (21:15)
[2021-05-22] MEDS: QUEtiapine FUMARATE 100 MG TABLET (FP) PO SCH (21:15)
[2021-05-22] MEDS: THIAMINE HCL 100 MG TABLET (FP) PO SCH (21:16)
[2021-05-22] MEDS: MELATONIN 5 MG TABLETS PO SCH (21:16)
[2021-05-23] MEDS: NICOTINE 10 MG CARTRIDGE (INHALER) IH PRN ×4 (03:32→17:59)
[2021-05-23] MEDS: methaDONE HCL 40 MG DISPERSABLE TABLET PO SCH (05:58)
[2021-05-23] MEDS: hydrOXYzine PAMOATE 50 MG CAPSULE (FP) PO SCH (09:03)
[2021-05-23] MEDS: PRENATAL VITAMINS W/ FOLIC ACID TABLET (FP) PO SCH (09:03)
[2021-05-23] MEDS: NICOTINE 14 MG/24 HOURS TOPICAL PATCH TD SCH (09:04)
[2021-05-23] MEDS: hydrOXYzine PAMOATE 50 MG CAPSULE (FP) PO PRN ×2 (16:00→20:06)
[2021-05-23] MEDS: MELATONIN 5 MG TABLETS PO SCH (21:02)
[2021-05-23] MEDS: QUEtiapine FUMARATE 100 MG TABLET (FP) PO SCH (21:02)
[2021-05-23] MEDS: THIAMINE HCL 100 MG TABLET (FP) PO SCH (21:02)
[2021-05-24] MEDS: NICOTINE 10 MG CARTRIDGE (INHALER) IH PRN ×5 (02:01→18:25)
[2021-05-24] MEDS: hydrOXYzine PAMOATE 50 MG CAPSULE (FP) PO PRN ×5 (02:06→18:25)
[2021-05-24] MEDS: methaDONE HCL 40 MG DISPERSABLE TABLET PO SCH (06:04)
[2021-05-24] MEDS: PRENATAL VITAMINS W/ FOLIC ACID TABLET (FP) PO SCH (09:57)
[2021-05-24] MEDS: NICOTINE 14 MG/24 HOURS TOPICAL PATCH TD SCH (09:57)
[2021-05-24] MEDS: THIAMINE HCL 100 MG TABLET (FP) PO SCH (21:25)
[2021-05-24] MEDS: QUEtiapine FUMARATE 100 MG TABLET (FP) PO SCH (21:25)
[2021-05-24] MEDS: MELATONIN 5 MG TABLETS PO SCH (21:25)
[2021-05-25] MEDS: NICOTINE 10 MG CARTRIDGE (INHALER) IH PRN ×5 (02:42→18:31)
[2021-05-25] MEDS: methaDONE HCL 40 MG DISPERSABLE TABLET PO SCH (05:56)
[2021-05-25] MEDS: hydrOXYzine PAMOATE 50 MG CAPSULE (FP) PO PRN ×4 (05:57→18:32)
[2021-05-25] MEDS: NICOTINE 21 MG/24 HOURS TOPICAL PATCH TD SCH (10:16)
[2021-05-25] MEDS: PRENATAL VITAMINS W/ FOLIC ACID TABLET (FP) PO SCH (10:16)
[2021-05-25] MEDS: MELATONIN 5 MG TABLETS PO SCH (21:05)
[2021-05-25] MEDS: THIAMINE HCL 100 MG TABLET (FP) PO SCH (21:05)
[2021-05-25] MEDS: QUEtiapine FUMARATE 100 MG TABLET (FP) PO SCH (21:06)
[2021-05-26] MEDS: hydrOXYzine PAMOATE 50 MG CAPSULE (FP) PO PRN ×4 (06:09→18:00)
[2021-05-26] MEDS: methaDONE HCL 40 MG DISPERSABLE TABLET PO SCH (06:09)
[2021-05-26] MEDS: NICOTINE 10 MG CARTRIDGE (INHALER) IH PRN ×4 (06:09→17:59)
[2021-05-26] MEDS: PRENATAL VITAMINS W/ FOLIC ACID TABLET (FP) PO SCH (09:53)
[2021-05-26] MEDS: NICOTINE 21 MG/24 HOURS TOPICAL PATCH TD SCH (09:54)
[2021-05-26] MEDS: MELATONIN 5 MG TABLETS PO SCH (21:43)
[2021-05-26] MEDS: QUEtiapine FUMARATE 100 MG TABLET (FP) PO SCH (21:43)
[2021-05-26] MEDS: THIAMINE HCL 100 MG TABLET (FP) PO SCH (21:43)
[2021-05-27] MEDS: methaDONE HCL 40 MG DISPERSABLE TABLET PO SCH (05:53)
[2021-05-27] MEDS: hydrOXYzine PAMOATE 50 MG CAPSULE (FP) PO PRN ×3 (05:53→16:36)
[2021-05-27] MEDS: NICOTINE 10 MG CARTRIDGE (INHALER) IH PRN ×4 (05:53→21:12)
[2021-05-27] MEDS: PRENATAL VITAMINS W/ FOLIC ACID TABLET (FP) PO SCH (10:15)
[2021-05-27] MEDS: NICOTINE 21 MG/24 HOURS TOPICAL PATCH TD SCH (10:15)
[2021-05-27] MEDS: QUEtiapine FUMARATE 100 MG TABLET (FP) PO SCH (21:11)
[2021-05-27] MEDS: MELATONIN 5 MG TABLETS PO SCH (21:11)
[2021-05-27] MEDS: THIAMINE HCL 100 MG TABLET (FP) PO SCH (21:12)
[2021-05-28] MEDS: NICOTINE 10 MG CARTRIDGE (INHALER) IH PRN ×6 (01:42→22:29)
[2021-05-28] MEDS: hydrOXYzine PAMOATE 50 MG CAPSULE (FP) PO PRN ×6 (01:43→22:30)
[2021-05-28] MEDS: methaDONE HCL 40 MG DISPERSABLE TABLET PO SCH (05:43)
[2021-05-28] MEDS: NICOTINE 21 MG/24 HOURS TOPICAL PATCH TD SCH (09:42)
[2021-05-28] MEDS: PRENATAL VITAMINS W/ FOLIC ACID TABLET (FP) PO SCH (09:42)
[2021-05-28] MEDS: QUEtiapine FUMARATE 100 MG TABLET (FP) PO SCH (21:39)
[2021-05-28] MEDS: THIAMINE HCL 100 MG TABLET (FP) PO SCH (21:39)
[2021-05-28] MEDS: MELATONIN 5 MG TABLETS PO SCH (21:39)
[2021-05-29] MEDS: NICOTINE 10 MG CARTRIDGE (INHALER) IH PRN ×4 (06:13→18:10)
[2021-05-29] MEDS: hydrOXYzine PAMOATE 50 MG CAPSULE (FP) PO PRN ×4 (06:13→19:35)
[2021-05-29] MEDS: methaDONE HCL 40 MG DISPERSABLE TABLET PO SCH (06:13)
[2021-05-29] MEDS: PRENATAL VITAMINS W/ FOLIC ACID TABLET (FP) PO SCH (10:07)
[2021-05-29] MEDS: NICOTINE 21 MG/24 HOURS TOPICAL PATCH TD SCH (10:08)
[2021-05-29] MEDS: THIAMINE HCL 100 MG TABLET (FP) PO SCH (21:09)
[2021-05-29] MEDS: QUEtiapine FUMARATE 100 MG TABLET (FP) PO SCH (21:09)
[2021-05-29] MEDS: MELATONIN 5 MG TABLETS PO SCH (21:09)
[2021-05-30] MEDS: hydrOXYzine PAMOATE 50 MG CAPSULE (FP) PO PRN (06:04)
[2021-05-30] MEDS: NICOTINE 10 MG CARTRIDGE (INHALER) IH PRN ×5 (06:05→22:20)
[2021-05-30] MEDS: methaDONE HCL 40 MG DISPERSABLE TABLET PO SCH (06:05)
[2021-05-30] MEDS: busPIRone HCL 5 MG TABLET PO SCH ×3 (08:02→21:38)
[2021-05-30] MEDS: PRENATAL VITAMINS W/ FOLIC ACID TABLET (FP) PO SCH (09:46)
[2021-05-30] MEDS: NICOTINE 21 MG/24 HOURS TOPICAL PATCH TD SCH (09:46)
[2021-05-30] MEDS: THIAMINE HCL 100 MG TABLET (FP) PO SCH (21:38)
[2021-05-30] MEDS: QUEtiapine FUMARATE 100 MG TABLET (FP) PO SCH (21:38)
[2021-05-30] MEDS: MELATONIN 5 MG TABLETS PO SCH (21:38)
[2021-05-31] MEDS ORDERED: PT OWN MED DRAWER 7, Y5N ONE (03:09)
[2021-05-31] MEDS: busPIRone HCL 5 MG TABLET PO SCH ×3 (06:35→21:05)
[2021-05-31] MEDS: methaDONE HCL 40 MG DISPERSABLE TABLET PO SCH (06:35)
[2021-05-31] MEDS: NICOTINE 10 MG CARTRIDGE (INHALER) IH PRN ×2 (06:41→17:08)
[2021-05-31] MEDS: PRENATAL VITAMINS W/ FOLIC ACID TABLET (FP) PO SCH (10:14)
[2021-05-31] MEDS: NICOTINE 21 MG/24 HOURS TOPICAL PATCH TD SCH (10:14)
[2021-05-31] MEDS: QUEtiapine FUMARATE 100 MG TABLET (FP) PO SCH (21:05)
[2021-05-31] MEDS: THIAMINE HCL 100 MG TABLET (FP) PO SCH (21:05)
[2021-05-31] MEDS: MELATONIN 5 MG TABLETS PO SCH (21:05)
[2021-06-01] MEDS: methaDONE HCL 40 MG DISPERSABLE TABLET PO SCH (06:21)
[2021-06-01] MEDS: busPIRone HCL 5 MG TABLET PO SCH ×3 (06:21→21:43)
[2021-06-01] MEDS: NICOTINE 10 MG CARTRIDGE (INHALER) IH PRN ×4 (06:22→18:48)
[2021-06-01] MEDS: NICOTINE 21 MG/24 HOURS TOPICAL PATCH TD SCH (10:05)
[2021-06-01] MEDS: PRENATAL VITAMINS W/ FOLIC ACID TABLET (FP) PO SCH (10:05)
[2021-06-01] MEDS: MELATONIN 5 MG TABLETS PO SCH (21:43)
[2021-06-01] MEDS: QUEtiapine FUMARATE 100 MG TABLET (FP) PO SCH (21:43)
[2021-06-01] MEDS: THIAMINE HCL 100 MG TABLET (FP) PO SCH (21:43)
[2021-06-02] MEDS: NICOTINE 10 MG CARTRIDGE (INHALER) IH PRN ×5 (00:30→21:07)
[2021-06-02] MEDS: methaDONE HCL 40 MG DISPERSABLE TABLET PO SCH (06:17)
[2021-06-02] MEDS: busPIRone HCL 5 MG TABLET PO SCH ×3 (06:18→21:07)
[2021-06-02] MEDS: NICOTINE 21 MG/24 HOURS TOPICAL PATCH TD SCH (09:39)
[2021-06-02] MEDS: PRENATAL VITAMINS W/ FOLIC ACID TABLET (FP) PO SCH (09:39)
[2021-06-02] MEDS: THIAMINE HCL 100 MG TABLET (FP) PO SCH (21:06)
[2021-06-02] MEDS: QUEtiapine FUMARATE 100 MG TABLET (FP) PO SCH (21:07)
[2021-06-02] MEDS: MELATONIN 5 MG TABLETS PO SCH (21:07)
[2021-06-03] MEDS: busPIRone HCL 5 MG TABLET PO SCH ×3 (06:10→21:37)
[2021-06-03] MEDS: NICOTINE 10 MG CARTRIDGE (INHALER) IH PRN ×3 (06:10→19:09)
[2021-06-03] MEDS: methaDONE HCL 40 MG DISPERSABLE TABLET PO SCH (06:10)
[2021-06-03] MEDS: PRENATAL VITAMINS W/ FOLIC ACID TABLET (FP) PO SCH (09:57)
[2021-06-03] MEDS: NICOTINE 21 MG/24 HOURS TOPICAL PATCH TD SCH (09:57)
[2021-06-03] MEDS: THIAMINE HCL 100 MG TABLET (FP) PO SCH (21:37)
[2021-06-03] MEDS: QUEtiapine FUMARATE 100 MG TABLET (FP) PO SCH (21:37)
[2021-06-03] MEDS: MELATONIN 5 MG TABLETS PO SCH (21:37)
[2021-06-04] MEDS: busPIRone HCL 5 MG TABLET PO SCH ×3 (06:07→21:12)
[2021-06-04] MEDS: methaDONE HCL 40 MG DISPERSABLE TABLET PO SCH (06:07)
[2021-06-04] MEDS: NICOTINE 10 MG CARTRIDGE (INHALER) IH PRN ×4 (06:07→19:22)
[2021-06-04] MEDS: NICOTINE 21 MG/24 HOURS TOPICAL PATCH TD SCH (10:31)
[2021-06-04] MEDS: PRENATAL VITAMINS W/ FOLIC ACID TABLET (FP) PO SCH (10:31)
[2021-06-04] MEDS: QUEtiapine FUMARATE 100 MG TABLET (FP) PO SCH (21:11)
[2021-06-04] MEDS: THIAMINE HCL 100 MG TABLET (FP) PO SCH (21:12)
[2021-06-04] MEDS: MELATONIN 5 MG TABLETS PO SCH (21:12)
[2021-06-05] MEDS: NICOTINE 10 MG CARTRIDGE (INHALER) IH PRN ×4 (06:15→23:06)
[2021-06-05] MEDS: methaDONE HCL 40 MG DISPERSABLE TABLET PO SCH (06:15)
[2021-06-05] MEDS: busPIRone HCL 5 MG TABLET PO SCH ×3 (06:15→22:05)
[2021-06-05] MEDS: NICOTINE 21 MG/24 HOURS TOPICAL PATCH TD SCH (09:45)
[2021-06-05] MEDS: PRENATAL VITAMINS W/ FOLIC ACID TABLET (FP) PO SCH (09:46)
[2021-06-05] MEDS: QUEtiapine FUMARATE 100 MG TABLET (FP) PO SCH (22:05)
[2021-06-05] MEDS: THIAMINE HCL 100 MG TABLET (FP) PO SCH (22:06)
[2021-06-05] MEDS: MELATONIN 5 MG TABLETS PO SCH (22:06)
[2021-06-06] MEDS: NICOTINE 10 MG CARTRIDGE (INHALER) IH PRN ×4 (06:06→22:20)
[2021-06-06] MEDS: busPIRone HCL 5 MG TABLET PO SCH ×3 (06:06→21:07)
[2021-06-06] MEDS: methaDONE HCL 40 MG DISPERSABLE TABLET PO SCH (06:06)
[2021-06-06] MEDS: NICOTINE 21 MG/24 HOURS TOPICAL PATCH TD SCH (10:11)
[2021-06-06] MEDS: PRENATAL VITAMINS W/ FOLIC ACID TABLET (FP) PO SCH (10:11)
[2021-06-06] MEDS: MELATONIN 5 MG TABLETS PO SCH (21:08)
[2021-06-06] MEDS: QUEtiapine FUMARATE 100 MG TABLET (FP) PO SCH (21:08)
[2021-06-06] MEDS: THIAMINE HCL 100 MG TABLET (FP) PO SCH (21:36)
[2021-06-07] MEDS: methaDONE HCL 40 MG DISPERSABLE TABLET PO SCH (06:25)
[2021-06-07] MEDS: busPIRone HCL 5 MG TABLET PO SCH ×3 (06:25→21:25)
[2021-06-07] MEDS: NICOTINE 10 MG CARTRIDGE (INHALER) IH PRN ×5 (06:26→22:12)
[2021-06-07] MEDS: PRENATAL VITAMINS W/ FOLIC ACID TABLET (FP) PO SCH (09:39)
[2021-06-07] MEDS: NICOTINE 21 MG/24 HOURS TOPICAL PATCH TD SCH (09:39)
[2021-06-07] MEDS: MELATONIN 5 MG TABLETS PO SCH (21:25)
[2021-06-07] MEDS: THIAMINE HCL 100 MG TABLET (FP) PO SCH (21:25)
[2021-06-07] MEDS: QUEtiapine FUMARATE 100 MG TABLET (FP) PO SCH (21:25)
[2021-06-08] MEDS: NICOTINE 10 MG CARTRIDGE (INHALER) IH PRN ×5 (05:59→23:10)
[2021-06-08] MEDS: busPIRone HCL 5 MG TABLET PO SCH ×3 (05:59→21:02)
[2021-06-08] MEDS: methaDONE HCL 40 MG DISPERSABLE TABLET PO SCH (05:59)
[2021-06-08] MEDS: NICOTINE 21 MG/24 HOURS TOPICAL PATCH TD SCH (10:36)
[2021-06-08] MEDS: PRENATAL VITAMINS W/ FOLIC ACID TABLET (FP) PO SCH (10:36)
[2021-06-08] MEDS: MELATONIN 5 MG TABLETS PO SCH (21:02)
[2021-06-08] MEDS: QUEtiapine FUMARATE 100 MG TABLET (FP) PO SCH (21:02)
[2021-06-08] MEDS: THIAMINE HCL 100 MG TABLET (FP) PO SCH (21:02)
[2021-06-09] MEDS: methaDONE HCL 40 MG DISPERSABLE TABLET PO SCH (06:08)
[2021-06-09] MEDS: busPIRone HCL 5 MG TABLET PO SCH ×3 (06:08→21:57)
[2021-06-09] MEDS: NICOTINE 10 MG CARTRIDGE (INHALER) IH PRN ×4 (06:09→18:44)
[2021-06-09] MEDS: PRENATAL VITAMINS W/ FOLIC ACID TABLET (FP) PO SCH (09:41)
[2021-06-09] MEDS: NICOTINE 21 MG/24 HOURS TOPICAL PATCH TD SCH (09:41)
[2021-06-09] MEDS: QUEtiapine FUMARATE 100 MG TABLET (FP) PO SCH (21:57)
[2021-06-09] MEDS: MELATONIN 5 MG TABLETS PO SCH (21:57)
[2021-06-09] MEDS: THIAMINE HCL 100 MG TABLET (FP) PO SCH (21:58)
[2021-06-10] MEDS: methaDONE HCL 40 MG DISPERSABLE TABLET PO SCH (06:06)
[2021-06-10] MEDS: busPIRone HCL 5 MG TABLET PO SCH ×3 (06:06→21:03)
[2021-06-10] MEDS: NICOTINE 10 MG CARTRIDGE (INHALER) IH PRN ×4 (06:07→19:58)
[2021-06-10] MEDS: NICOTINE 21 MG/24 HOURS TOPICAL PATCH TD SCH (10:25)
[2021-06-10] MEDS: PRENATAL VITAMINS W/ FOLIC ACID TABLET (FP) PO SCH (10:26)
[2021-06-10] MEDS: MELATONIN 5 MG TABLETS PO SCH (21:03)
[2021-06-10] MEDS: THIAMINE HCL 100 MG TABLET (FP) PO SCH (21:03)
[2021-06-10] MEDS: QUEtiapine FUMARATE 100 MG TABLET (FP) PO SCH (21:03)
[2021-06-11] MEDS: methaDONE HCL 40 MG DISPERSABLE TABLET PO SCH (06:02)
[2021-06-11] MEDS: NICOTINE 10 MG CARTRIDGE (INHALER) IH PRN ×4 (06:03→18:27)
[2021-06-11] MEDS: busPIRone HCL 5 MG TABLET PO SCH ×3 (06:03→21:31)
[2021-06-11] MEDS: PRENATAL VITAMINS W/ FOLIC ACID TABLET (FP) PO SCH (09:34)
[2021-06-11] MEDS: NICOTINE 21 MG/24 HOURS TOPICAL PATCH TD SCH (09:34)
[2021-06-11] MEDS: MELATONIN 5 MG TABLETS PO SCH (21:31)
[2021-06-11] MEDS: QUEtiapine FUMARATE 100 MG TABLET (FP) PO SCH (21:31)
[2021-06-11] MEDS: THIAMINE HCL 100 MG TABLET (FP) PO SCH (21:31)
[2021-06-12] MEDS: busPIRone HCL 5 MG TABLET PO SCH ×3 (06:15→21:07)
[2021-06-12] MEDS: NICOTINE 10 MG CARTRIDGE (INHALER) IH PRN ×4 (06:15→18:57)
[2021-06-12] MEDS: methaDONE HCL 40 MG DISPERSABLE TABLET PO SCH (06:15)
[2021-06-12] MEDS: NICOTINE 21 MG/24 HOURS TOPICAL PATCH TD SCH (10:20)
[2021-06-12] MEDS: PRENATAL VITAMINS W/ FOLIC ACID TABLET (FP) PO SCH (10:21)
[2021-06-12] MEDS: MELATONIN 5 MG TABLETS PO SCH (21:07)
[2021-06-12] MEDS: THIAMINE HCL 100 MG TABLET (FP) PO SCH (21:07)
[2021-06-12] MEDS: QUEtiapine FUMARATE 100 MG TABLET (FP) PO SCH (21:07)
[2021-06-13] MEDS: NICOTINE 10 MG CARTRIDGE (INHALER) IH PRN ×3 (06:25→19:11)
[2021-06-13] MEDS: busPIRone HCL 5 MG TABLET PO SCH ×3 (06:25→21:37)
[2021-06-13] MEDS: methaDONE HCL 40 MG DISPERSABLE TABLET PO SCH (06:25)
[2021-06-13] MEDS: NICOTINE 21 MG/24 HOURS TOPICAL PATCH TD SCH (10:26)
[2021-06-13] MEDS: PRENATAL VITAMINS W/ FOLIC ACID TABLET (FP) PO SCH (10:27)
[2021-06-13] MEDS: QUEtiapine FUMARATE 100 MG TABLET (FP) PO SCH (21:36)
[2021-06-13] MEDS: MELATONIN 5 MG TABLETS PO SCH (21:37)
[2021-06-13] MEDS: THIAMINE HCL 100 MG TABLET (FP) PO SCH (21:37)
[2021-06-14] MEDS: busPIRone HCL 5 MG TABLET PO SCH ×3 (06:12→21:02)
[2021-06-14] MEDS: methaDONE HCL 40 MG DISPERSABLE TABLET PO SCH (06:12)
[2021-06-14] MEDS: NICOTINE 10 MG CARTRIDGE (INHALER) IH PRN ×4 (06:12→22:50)
[2021-06-14] MEDS: NICOTINE 21 MG/24 HOURS TOPICAL PATCH TD SCH (10:24)
[2021-06-14] MEDS: PRENATAL VITAMINS W/ FOLIC ACID TABLET (FP) PO SCH (10:25)
[2021-06-14] MEDS: THIAMINE HCL 100 MG TABLET (FP) PO SCH (21:02)
[2021-06-14] MEDS: QUEtiapine FUMARATE 100 MG TABLET (FP) PO SCH (21:02)
[2021-06-14] MEDS: MELATONIN 5 MG TABLETS PO SCH (21:02)
[2021-06-15] MEDS: NICOTINE 10 MG CARTRIDGE (INHALER) IH PRN ×4 (06:23→20:11)
[2021-06-15] MEDS: methaDONE HCL 40 MG DISPERSABLE TABLET PO SCH (06:23)
[2021-06-15] MEDS: busPIRone HCL 5 MG TABLET PO SCH ×3 (06:23→21:59)
[2021-06-15] MEDS: NICOTINE 21 MG/24 HOURS TOPICAL PATCH TD SCH (09:48)
[2021-06-15] MEDS: PRENATAL VITAMINS W/ FOLIC ACID TABLET (FP) PO SCH (09:49)
[2021-06-15] MEDS: QUEtiapine FUMARATE 100 MG TABLET (FP) PO SCH (21:58)
[2021-06-15] MEDS: THIAMINE HCL 100 MG TABLET (FP) PO SCH (21:59)
[2021-06-15] MEDS: MELATONIN 5 MG TABLETS PO SCH (21:59)
[2021-06-16] MEDS: NICOTINE 10 MG CARTRIDGE (INHALER) IH PRN ×4 (06:06→21:04)
[2021-06-16] MEDS: methaDONE HCL 40 MG DISPERSABLE TABLET PO SCH (06:06)
[2021-06-16] MEDS: busPIRone HCL 5 MG TABLET PO SCH ×3 (06:06→21:03)
[2021-06-16] MEDS: NICOTINE 21 MG/24 HOURS TOPICAL PATCH TD SCH (10:07)
[2021-06-16] MEDS: PRENATAL VITAMINS W/ FOLIC ACID TABLET (FP) PO SCH (10:07)
[2021-06-16] MEDS: MELATONIN 5 MG TABLETS PO SCH (21:03)
[2021-06-16] MEDS: THIAMINE HCL 100 MG TABLET (FP) PO SCH (21:03)
[2021-06-16] MEDS: QUEtiapine FUMARATE 100 MG TABLET (FP) PO SCH (21:03)
[2021-06-17] MEDS: methaDONE HCL 40 MG DISPERSABLE TABLET PO SCH (06:28)
[2021-06-17] MEDS: busPIRone HCL 5 MG TABLET PO SCH ×3 (06:28→21:41)
[2021-06-17] MEDS: NICOTINE 10 MG CARTRIDGE (INHALER) IH PRN ×4 (06:28→21:42)
[2021-06-17] MEDS: PRENATAL VITAMINS W/ FOLIC ACID TABLET (FP) PO SCH (09:41)
[2021-06-17] MEDS: NICOTINE 21 MG/24 HOURS TOPICAL PATCH TD SCH (09:41)
[2021-06-17] MEDS: MELATONIN 5 MG TABLETS PO SCH (21:41)
[2021-06-17] MEDS: THIAMINE HCL 100 MG TABLET (FP) PO SCH (21:41)
[2021-06-17] MEDS: QUEtiapine FUMARATE 100 MG TABLET (FP) PO SCH (21:41)
[2021-06-18] MEDS: methaDONE HCL 40 MG DISPERSABLE TABLET PO SCH (05:55)
[2021-06-18] MEDS: busPIRone HCL 5 MG TABLET PO SCH (06:23)
[2021-06-18 07:50] VITALS: BP 99/72; PULSE 78; TEMP 97.9
[2021-06-18] MEDS ORDERED: PT OWN MED DRAWER 7, Y5N ONE (09:18)
[2021-06-18] MEDS: PRENATAL VITAMINS W/ FOLIC ACID TABLET (FP) PO SCH (09:27)
[2021-06-18] MEDS: NICOTINE 21 MG/24 HOURS TOPICAL PATCH TD SCH (09:27)
== END 2021-06-18 10:12 | disposition home or self-care (01) | DRG 772 ==
LOC: YASAS 15:28 → Y3W 21:15
PROVIDERS: ADMIT Allergy & Immunology; ATTEND Allergy & Immunology
PROC: HZ42ZZZ Group Counseling for Substance Abuse Treatment, Cognitive-Behavioral (ICD-10-PCS; principal; 2021-05-21)
DX: F11.20 Opioid dependence, uncomplicated (principal); F10.20 Alcohol dependence, uncomplicated; F14.20 Cocaine dependence, uncomplicated; F13.20 Sedative, hypnotic or anxiolytic dependence, uncomplicated; F12.20 Cannabis dependence, uncomplicated; F17.210 Nicotine dependence, cigarettes, uncomplicated; F19.280 Other psychoactive substance dependence with psychoactive substance-induced anxiety disorder; F90.9 Attention-deficit hyperactivity disorder, unspecified type; G47.00 Insomnia, unspecified; Z86.19 Personal history of other infectious and parasitic diseases; Z86.69 Personal history of other diseases of the nervous system and sense organs; Z59.00 Homelessness unspecified
CPT/HCPCS: 36415; 71045-TC-FY; 80053; 81003; 85027; 86780; 86803; 87522; C9803; U0003; U0005

== ENCOUNTER 2023-04-22 13:01 | Inpatient (IN) | payer OTHER ==
[2023-04-22 14:20] VITALS: BMI 19.8
[2023-04-22] MEDS ORDERED: NALOXONE HCL 0.4 MG/ML VIAL IM PRN (15:43)
[2023-04-22] MEDS ORDERED: MAGNESIUM HYDROX 2400MG/30ML ORAL SUSPENSION 30 ML CUP PO PRN (15:43)
[2023-04-22] MEDS ORDERED: IBUPROFEN 400 MG TABLET (FP) PO PRN (15:43)
[2023-04-22] MEDS ORDERED: METHOCARBAMOL 500 MG TABLET PO PRN (15:43)
[2023-04-22] MEDS ORDERED: LOPERAMIDE HCL 2 MG CAPSULE PO PRN (15:43)
[2023-04-22] MEDS ORDERED: POLYETHYLENE GLYCOL (HEALTHYLAX) 3350 17 GM PACKET PO PRN (15:43)
[2023-04-22] MEDS ORDERED: ONDANSETRON *ODT* 4 MG TABLET SL PRN (15:43)
[2023-04-22] MEDS ORDERED: BISMUTH SUBSALICYLATE 524 MG/30 ML PO PRN (15:43)
[2023-04-22] MEDS ORDERED: ACETAMINOPHEN 325 MG TABLET (FP) PO PRN (15:43)
[2023-04-22] MEDS ORDERED: NALOXONE HCL (KLOXXADO) 8 MG SPRAY NS PRN (15:43)
[2023-04-22] MEDS ORDERED: BENZONATATE 200 MG CAPSULE PO PRN (15:43)
[2023-04-22] MEDS ORDERED: MAG HYDROX/AL HYDROX/SIMETH 30 ML UNIT-DOSE CUP PO PRN (15:43)
[2023-04-22] MEDS ORDERED: IBUPROFEN 600 MG TABLET (FP) PO PRN (15:43)
[2023-04-22] MEDS ORDERED: BENZOCAINE/MENTHOL (CHLORASEPTIC ) LOZENGE MM PRN (15:43)
[2023-04-22] MEDS ORDERED: DICYCLOMINE HCL 10 MG CAPSULE PO PRN (15:43)
[2023-04-22] MEDS ORDERED: hydrOXYzine PAMOATE 25 MG CAPSULE (FP) PO PRN (15:43)
[2023-04-22] MEDS ORDERED: guaiFENesin 600 MG TABLET.ER (FP) PO PRN (15:43)
[2023-04-22] MEDS ORDERED: diazePAM 5 MG TABLET PO ONE (16:00)
[2023-04-22] MEDS: PRENATAL VITAMINS W/ FOLIC ACID TABLET (FP) PO SCH (16:55)
[2023-04-22] MEDS ORDERED: diazePAM 5 MG TABLET ONE (16:58)
[2023-04-22] MEDS ORDERED: PRENATAL VITAMINS W/ FOLIC ACID TABLET (FP) PO ONE (16:58)
[2023-04-22] MEDS: THIAMINE HCL 100 MG TABLET (FP) PO SCH (22:07)
[2023-04-22] MEDS: diazePAM 5 MG TABLET PO SCH (22:07)
[2023-04-22] MEDS: MELATONIN 5 MG TABLETS PO SCH (22:07)
[2023-04-23] MEDS: diazePAM 5 MG TABLET PO SCH ×4 (05:15→23:01)
[2023-04-23] MEDS ORDERED: methaDONE HCL 40 MG DISPERSABLE TABLET PO SCH (07:22)
[2023-04-23] MEDS ORDERED: methaDONE HCL 10 MG TABLET PO SCH (07:30)
[2023-04-23] MEDS ORDERED: methaDONE HCL 40 MG DISPERSABLE TABLET PO ONE (08:00)
[2023-04-23] MEDS: NICOTINE 14 MG/24 HOURS TOPICAL PATCH TD SCH (10:04)
[2023-04-23] MEDS: PRENATAL VITAMINS W/ FOLIC ACID TABLET (FP) PO SCH (10:04)
[2023-04-23 10:35] LABS: HEMATOCRIT 41.4 % (35.4-49); HEMOGLOBIN 14.2 GM/dL (11.7-16.9); MCH 31.8 pg (25.7-33.7); MCHC 34.2 g/dl (32.0-35.9); MEAN PLT VOLUME 9.3 fl (7.5-11.1); PLATELET COUNT 154 10^3/uL (134-434); RBC 4.46 M/mm3 (4.00-5.60); RDW 14.1 % (11.9-15.9); WHITE BLOOD COUNT 3.8 K/mm3 (4.0-10.0)
[2023-04-23 10:40] LABS: POTASSIUM 3.9 mmol/L (3.5-5.1)
[2023-04-23 11:19] LABS: CALCIUM 8.6 mg/dL (8.5-10.1)
[2023-04-23 11:24] LABS: CREATININE 0.6 mg/dL (0.55-1.3); TOT PROT 6.1 g/dl (6.4-8.2)
[2023-04-23 11:25] LABS: BILIRUBIN,TOTAL 0.4 mg/dL (0.2-1)
[2023-04-23] MEDS: diazePAM 5 MG TABLET PO PRN ×2 (12:01→19:54)
[2023-04-23] MEDS: THIAMINE HCL 100 MG TABLET (FP) PO SCH (22:59)
[2023-04-23] MEDS: MELATONIN 5 MG TABLETS PO SCH (22:59)
[2023-04-24] MEDS: diazePAM 5 MG TABLET PO SCH ×3 (05:23→22:15)
[2023-04-24] MEDS: methaDONE HCL 40 MG DISPERSABLE TABLET PO SCH (05:24)
[2023-04-24] MEDS: diazePAM 5 MG TABLET PO PRN ×4 (07:36→20:14)
[2023-04-24] MEDS: NICOTINE 14 MG/24 HOURS TOPICAL PATCH TD SCH (10:30)
[2023-04-24] MEDS: PRENATAL VITAMINS W/ FOLIC ACID TABLET (FP) PO SCH (10:30)
[2023-04-24] MEDS: MELATONIN 5 MG TABLETS PO SCH (22:14)
[2023-04-24] MEDS: THIAMINE HCL 100 MG TABLET (FP) PO SCH (22:15)
[2023-04-25] MEDS: methaDONE HCL 40 MG DISPERSABLE TABLET PO SCH (05:24)
[2023-04-25] MEDS: diazePAM 5 MG TABLET PO SCH ×2 (05:24→17:48)
[2023-04-25] MEDS: PRENATAL VITAMINS W/ FOLIC ACID TABLET (FP) PO SCH (10:07)
[2023-04-25] MEDS: diazePAM 5 MG TABLET PO PRN (10:07)
[2023-04-25] MEDS: NICOTINE 14 MG/24 HOURS TOPICAL PATCH TD SCH (10:08)
[2023-04-25] MEDS: MELATONIN 5 MG TABLETS PO SCH (22:29)
[2023-04-25] MEDS: THIAMINE HCL 100 MG TABLET (FP) PO SCH (22:29)
[2023-04-26] MEDS: methaDONE HCL 40 MG DISPERSABLE TABLET PO SCH (05:21)
[2023-04-26] MEDS ORDERED: diazePAM 5 MG TABLET PO ONE (06:00)
[2023-04-26 06:24] VITALS: PULSE 60
[2023-04-26] MEDS: PRENATAL VITAMINS W/ FOLIC ACID TABLET (FP) PO SCH (10:00)
[2023-04-26] MEDS: NICOTINE 14 MG/24 HOURS TOPICAL PATCH TD SCH (10:00)
[2023-04-26 10:10] VITALS: BP 144/78; RESP 17; TEMP 98
== END 2023-04-26 10:37 | disposition home or self-care (01) | DRG 773 ==
LOC: YASAS 13:01 → Y3N 17:07
PROVIDERS: ADMIT Allergy & Immunology; ATTEND Surgery
PROC: HZ2ZZZZ Detoxification Services for Substance Abuse Treatment (ICD-10-PCS; principal; 2023-04-22)
DX: F11.23 Opioid dependence with withdrawal (principal); F10.230 Alcohol dependence with withdrawal, uncomplicated; F14.20 Cocaine dependence, uncomplicated; F17.210 Nicotine dependence, cigarettes, uncomplicated; F19.282 Other psychoactive substance dependence with psychoactive substance-induced sleep disorder; F19.280 Other psychoactive substance dependence with psychoactive substance-induced anxiety disorder; F19.24 Other psychoactive substance dependence with psychoactive substance-induced mood disorder; F43.10 Post-traumatic stress disorder, unspecified; Z59.02 Unsheltered homelessness; Z56.0 Unemployment, unspecified
CPT/HCPCS: 36415; 80053; 85027; 86780; 87635; 87811; 93005; 93010

== ENCOUNTER 2023-08-29 12:42 | Inpatient (IN) | payer OTHER ==
[2023-08-29 13:32] VITALS: BMI 19.5
[2023-08-29] MEDS ORDERED: BENZOCAINE/MENTHOL (CHLORASEPTIC ) LOZENGE MM PRN (16:37)
[2023-08-29] MEDS ORDERED: MAGNESIUM HYDROX 2400MG/30ML ORAL SUSPENSION 30 ML CUP PO PRN (16:37)
[2023-08-29] MEDS ORDERED: ONDANSETRON *ODT* 4 MG TABLET SL PRN (16:37)
[2023-08-29] MEDS ORDERED: NALOXONE HCL 0.4 MG/ML VIAL IM PRN (16:37)
[2023-08-29] MEDS ORDERED: guaiFENesin 600 MG TABLET.ER (FP) PO PRN (16:37)
[2023-08-29] MEDS ORDERED: POLYETHYLENE GLYCOL (HEALTHYLAX) 3350 17 GM PACKET PO PRN (16:37)
[2023-08-29] MEDS ORDERED: MAG HYDROX/AL HYDROX/SIMETH 30 ML UNIT-DOSE CUP PO PRN (16:37)
[2023-08-29] MEDS ORDERED: P-EPHED 60MG/TRIPROLIDI 2.5MG TABLET PO PRN (16:37)
[2023-08-29] MEDS ORDERED: NALOXONE HCL (KLOXXADO) 8 MG SPRAY NS PRN (16:37)
[2023-08-29] MEDS ORDERED: IBUPROFEN 600 MG TABLET (FP) PO PRN (16:37)
[2023-08-29] MEDS ORDERED: IBUPROFEN 400 MG TABLET (FP) PO PRN (16:37)
[2023-08-29] MEDS ORDERED: ACETAMINOPHEN 325 MG TABLET (FP) PO PRN (16:37)
[2023-08-29] MEDS ORDERED: LOPERAMIDE HCL 2 MG CAPSULE PO PRN (16:37)
[2023-08-29] MEDS ORDERED: DICYCLOMINE HCL 10 MG CAPSULE PO PRN (16:37)
[2023-08-29] MEDS ORDERED: BENZONATATE 200 MG CAPSULE PO PRN (16:37)
[2023-08-29] MEDS ORDERED: BISMUTH SUBSALICYLATE 524 MG/30 ML PO PRN (16:37)
[2023-08-29] MEDS ORDERED: diazePAM 5 MG TABLET ONE (17:37)
[2023-08-29] MEDS ORDERED: IBUPROFEN 400 MG TABLET (FP) PO ONE (17:37)
[2023-08-29] MEDS: diazePAM 5 MG TABLET PO SCH ×2 (17:40→22:00)
[2023-08-29] MEDS: NICOTINE POLACRILEX 2 MG GUM BUC PRN (18:30)
[2023-08-29] MEDS: diazePAM 5 MG TABLET PO PRN (19:34)
[2023-08-29] MEDS ORDERED: NICOTINE 7 MG/24 HOURS TOPICAL PATCH TD ONE (20:26)
[2023-08-29] MEDS ORDERED: MELATONIN 5 MG TABLETS PO SCH (22:00)
[2023-08-29] MEDS: THIAMINE HCL 100 MG TABLET (FP) PO SCH (22:00)
[2023-08-30] MEDS: diazePAM 5 MG TABLET PO PRN ×3 (01:10→21:01)
[2023-08-30] MEDS: diazePAM 5 MG TABLET PO SCH ×4 (05:43→23:19)
[2023-08-30] MEDS: METHOCARBAMOL 500 MG TABLET PO PRN (10:38)
[2023-08-30] MEDS: PRENATAL VITAMINS W/ FOLIC ACID TABLET (FP) PO SCH (10:38)
[2023-08-30] MEDS: methaDONE HCL 10 MG TABLET PO SCH (13:40)
[2023-08-30] MEDS: THIAMINE HCL 100 MG TABLET (FP) PO SCH (22:27)
[2023-08-30] MEDS: SUVOREXANT 10 MG TABLET PO PRN (22:30)
[2023-08-30] MEDS: NICOTINE POLACRILEX 2 MG GUM BUC PRN (23:36)
[2023-08-31] MEDS: diazePAM 5 MG TABLET PO PRN ×3 (03:14→18:57)
[2023-08-31] MEDS: diazePAM 5 MG TABLET PO SCH ×3 (05:51→22:41)
[2023-08-31] MEDS: methaDONE HCL 10 MG TABLET PO SCH (06:43)
[2023-08-31] MEDS ORDERED: methaDONE HCL 10 MG TABLET PO ONE (10:08)
[2023-08-31] MEDS: PRENATAL VITAMINS W/ FOLIC ACID TABLET (FP) PO SCH (10:32)
[2023-08-31] MEDS: hydrOXYzine PAMOATE 25 MG CAPSULE (FP) PO PRN (10:33)
[2023-08-31] MEDS: METHOCARBAMOL 500 MG TABLET PO PRN (10:33)
[2023-08-31] MEDS: NICOTINE 14 MG/24 HOURS TOPICAL PATCH TD SCH (14:13)
[2023-08-31] MEDS: THIAMINE HCL 100 MG TABLET (FP) PO SCH (22:41)
[2023-08-31] MEDS: SUVOREXANT 10 MG TABLET PO PRN (22:43)
[2023-09-01] MEDS: diazePAM 5 MG TABLET PO PRN ×3 (03:14→15:22)
[2023-09-01] MEDS: diazePAM 5 MG TABLET PO SCH ×2 (05:41→17:35)
[2023-09-01] MEDS ORDERED: methaDONE HCL 10 MG TABLET PO ONE (08:24)
[2023-09-01] MEDS: PRENATAL VITAMINS W/ FOLIC ACID TABLET (FP) PO SCH (09:42)
[2023-09-01] MEDS: METHOCARBAMOL 500 MG TABLET PO PRN ×2 (09:42→17:35)
[2023-09-01] MEDS: NICOTINE 14 MG/24 HOURS TOPICAL PATCH TD SCH (09:42)
[2023-09-01] MEDS: hydrOXYzine PAMOATE 25 MG CAPSULE (FP) PO PRN (09:43)
[2023-09-01] MEDS: THIAMINE HCL 100 MG TABLET (FP) PO SCH (21:24)
[2023-09-01] MEDS: SUVOREXANT 10 MG TABLET PO PRN (21:24)
[2023-09-02] MEDS ORDERED: diazePAM 5 MG TABLET PO ONE (06:00)
[2023-09-02] MEDS ORDERED: methaDONE HCL 10 MG TABLET PO SCH (08:45)
[2023-09-02] MEDS: PRENATAL VITAMINS W/ FOLIC ACID TABLET (FP) PO SCH (09:05)
[2023-09-02] MEDS: NICOTINE 14 MG/24 HOURS TOPICAL PATCH TD SCH (09:06)
[2023-09-02 11:39] LABS: HEMATOCRIT 39.8 % (35.4-49); HEMOGLOBIN 12.9 GM/dL (11.7-16.9); MCH 31.1 pg (25.7-33.7); MCHC 32.4 g/dl (32.0-35.9); MEAN PLT VOLUME 9.4 fl (7.5-11.1); PLATELET COUNT 124 10^3/uL (134-434); RBC 4.14 M/mm3 (4.00-5.60); RDW 14.4 % (11.9-15.9); WHITE BLOOD COUNT 4.4 K/mm3 (4.0-10.0)
[2023-09-02 11:48] LABS: POTASSIUM 4.1 mmol/L (3.5-5.1)
[2023-09-02 12:02] LABS: CALCIUM 9.3 mg/dL (8.5-10.1)
[2023-09-02 12:03] LABS: ALBUMIN 3.4 g/dl (3.4-5.0)
[2023-09-02 12:05] LABS: CREATININE 0.9 mg/dL (0.55-1.3)
[2023-09-02 12:06] LABS: BLOOD UREA NITROGEN 15.8 mg/dL (7-18)
[2023-09-02 12:08] LABS: BILIRUBIN,TOTAL 0.5 mg/dL (0.2-1)
[2023-09-02 12:11] LABS: TOT PROT 6.6 g/dl (6.4-8.2)
[2023-09-02] MEDS: hydrOXYzine PAMOATE 25 MG CAPSULE (FP) PO PRN (16:02)
[2023-09-02] MEDS: THIAMINE HCL 100 MG TABLET (FP) PO SCH (21:50)
[2023-09-02] MEDS: SUVOREXANT 10 MG TABLET PO PRN (21:50)
[2023-09-03] MEDS: hydrOXYzine PAMOATE 25 MG CAPSULE (FP) PO PRN ×2 (05:08→11:07)
[2023-09-03] MEDS: METHOCARBAMOL 500 MG TABLET PO PRN (07:43)
[2023-09-03 09:47] VITALS: BP 135/91; PULSE 80; RESP 16; TEMP 98.9
[2023-09-03] MEDS: PRENATAL VITAMINS W/ FOLIC ACID TABLET (FP) PO SCH (09:51)
[2023-09-03] MEDS: NICOTINE 14 MG/24 HOURS TOPICAL PATCH TD SCH (09:51)
== END 2023-09-03 11:18 | disposition other institution (70) | DRG 773 ==
LOC: YASAS 12:42 → Y6N 17:02 → Y3N 21:15
PROVIDERS: ADMIT Allergy & Immunology; ATTEND Surgery
PROC: HZ2ZZZZ Detoxification Services for Substance Abuse Treatment (ICD-10-PCS; principal; 2023-08-29)
DX: F10.230 Alcohol dependence with withdrawal, uncomplicated (principal); F13.20 Sedative, hypnotic or anxiolytic dependence, uncomplicated; F11.20 Opioid dependence, uncomplicated; F17.210 Nicotine dependence, cigarettes, uncomplicated; F19.282 Other psychoactive substance dependence with psychoactive substance-induced sleep disorder; F19.280 Other psychoactive substance dependence with psychoactive substance-induced anxiety disorder; F19.24 Other psychoactive substance dependence with psychoactive substance-induced mood disorder; Z20.822 Contact with and (suspected) exposure to COVID-19; Z86.59 Personal history of other mental and behavioral disorders
CPT/HCPCS: 0241U-QW; 36415; 80053; 85027; 87635; 87811; 93005; 93010